=== PATIENT | male | born 1940 | race Caucasian/White ===

== ENCOUNTER 2019-05-15 09:13 | Inpatient (IN) | payer MEDICARE ==
--- NOTE | 2019-05-15 09:24 | ED Physician Documentation ---
PD HPI DYSPNEA - Stated complaint Stated Complaint: SOA - History obtained from History obtained from: Patient, EMS - History of Present Illness Timing - onset: How many days ago (4 to 5 days of general malaise cough and increasing trouble breathing. This has worsened significantly since yesterday despite home oxygen and nebulizers.) Timing - onset during: Light activity Timing - duration: Days Timing - details: Gradual onset, Still present (much worse breathing and cough the past day in particular.) Inciting event(s): URI (cough, congestion and wheezing the past several days, worsening.) Improved by: No: O2 (He has oxygen and a nebulizer to use when he has problems. He states he does not use them consistently when well.), Inhaler/neb Associated symptoms: Fever, Cough, Wheezing. No: Hemoptysis, Chest pain / discomfort, Bilateral edema Similar symptoms before: Diagnosis (COPD) Recently seen: Not recently seen Review of Systems Constitutional: reports: Fever, Chills, Myalgias Nose: reports: Congestion. denies: Rhinorrhea / runny nose Throat: denies: Sore throat Cardiac: denies: Chest pain / pressure, Palpitations, Pedal edema Respiratory: reports: Dyspnea, Cough, Wheezing GI: reports: Nausea. denies: Abdominal Pain, Vomiting, Diarrhea Skin: denies: Rash Neurologic: reports: Generalized weakness. denies: Near syncope, Altered mental status, Headache PD PAST MEDICAL HISTORY - Past Medical History Cardiovascular: None Respiratory: Asthma, COPD, Shortness of breath Neuro: Headaches Endocrine/Autoimmune: None GI: None : Other HEENT: None Psych: None Musculoskeletal: Osteoarthritis, Chronic back pain Derm: Psoriasis - Past Surgical History Past Surgical History: Yes General: Colonoscopy Ortho: Arthroscopic surgery, Spine surgery - Present Medications Home Medications: Ambulatory Orders Medication Instructions Recorded Confirmed Albuterol 2.5 mg INH Q4HR PRN MDD 6 doses 11/08/17 05/15/19 Gabapentin 300 mg PO TID 11/08/17 05/15/19 Hydrocodone/Acetaminophen 1 tab PO Q4HR PRN MDD 4000mg 11/08/17 05/15/19 [Hydrocodone-Acetamin 10-325 mg] aceteminophen Montelukast [Singulair] 10 mg PO DAILY 11/08/17 05/15/19 Fluticasone Propion/Salmeterol 1 puffs INH BID 05/15/19 05/15/19 [Wixela 500-50 Inhub] Mometasone Furoate [Asmanex Hfa] 1 puffs INH BID 05/15/19 05/15/19 predniSONE [Prednisone] 10 mg PO DAILYWM 05/15/19 05/15/19 - Allergies Allergies/Adverse Reactions: Allergies Allergy/AdvReac Type Severity Reaction Status Date / Time Penicillins Allergy Unknown Verified 05/15/19 09:34 - Social History Does the pt smoke?: Yes Smoking Status: Current every day smoker Does the pt drink ETOH?: No Does the pt have substance abuse?: No - Immunizations Immunizations are current?: Yes PD ED PE NORMAL - Vitals Vital signs reviewed: Yes - General General: Alert and oriented X 3, Well developed/nourished, Other (He has tachypnea with some accessory muscle use and partial sentence conversational dyspnea. He is most comfortable sitting up.) - HEENT HEENT: Pharynx benign - Neck Neck: Supple, no meningeal sign, No adenopathy - Cardiac Cardiac: No murmur. No: RRR (Regular but tachycardic.) - Respiratory Respiratory: No: Clear bilaterally (Tachycardic.) - Abdomen Abdomen: Soft, Non tender - Male Male : Deferred - Rectal Rectal: Deferred - Back Back: No CVA TTP - Derm Derm: No: Normal color, Warm and dry (pale but warm) - Extremities Extremities: No deformity, Normal ROM s pain, No edema - Neuro Neuro: Alert and oriented X 3, No motor deficit, Normal speech Results - Vitals Vitals: Vital Signs - 24 hr 05/15/19 05/15/19 05/15/19 09:20 09:45 10:00 Temperature 36.9 C Heart Rate 136 H 135 H 132 H Respiratory 25 H 24 24 Rate Blood Pressure 183/95 H 155/91 H 141/86 H O2 Saturation 77 L 97 96 05/15/19 05/15/19 05/15/19 10:10 10:28 10:30 Temperature 36.9 C Heart Rate 132 H 128 H 129 H Respiratory 22 24 29 H Rate Blood Pressure 149/81 H O2 Saturation 92 05/15/19 05/15/19 05/15/19 11:00 11:05 11:30 Temperature Heart Rate 127 H 129 H 126 H Respiratory 25 H 24 22 Rate Blood Pressure 152/80 H 127/77 O2 Saturation 94 95 Oxygen O2 Source Oxymask Oxygen Flow Rate 8 - EKG (time done) 09:25 Rate: Rate (enter#) (137) Rhythm: NSR, Other (artifact in baseline) Intervals: Normal DE, Wide QRS Ischemia: Normal ST segments. No: ST elevation c/w ischemia, ST depression - Labs Labs: Laboratory Tests 05/15/19 05/15/19 05/15/19 10:12 10:12 10:12 WBC RBC Hgb Hct MCV MCH MCHC RDW Plt Count MPV Neut # (Auto) Lymph # (Auto) [place] # (Auto) Eos # (Auto) Baso # (Auto) Absolute Nucleated RBC Nucleated RBC % Bld Gas Analysis Time Sample Site ABG pH ABG pCO2 ABG pO2 ABG HCO3 ABG Total CO2 ABG O2 Saturation ABG Oximetry Spot Check ABG Base Excess Jw Test Respiration Rate O2 Delivery Device O2 Liters/Min Sodium 137 Potassium 4.4 Chloride 99 L Carbon Dioxide 25 Anion Gap 13.0 BUN 31 H Creatinine 1.1 Estimated GFR (MDRD) 65 L Glucose 168 H Lactic Acid 1.3 Calcium 9.2 Magnesium 2.3 Total Bilirubin 1.2 H AST 29 ALT 32 Alkaline Phosphatase 95 Troponin I High Sens 167.1 H* B-Natriuretic Peptide Total Protein 8.1 Albumin 3.6 Globulin 4.5 H Albumin/Globulin Ratio 0.8 L Lipase 27 05/15/19 05/15/19 05/15/19 10:51 10:51 11:00 WBC 13.4 H RBC 4.20 L Hgb 12.9 L Hct 40.9 L MCV 97.4 H MCH 30.7 MCHC 31.5 L RDW 14.0 Plt Count 329 MPV 9.5 Neut # (Auto) 11.0 H Lymph # (Auto) 1.6 [place] # (Auto) 0.6 Eos # (Auto) 0.0 Baso # (Auto) 0.1 Absolute Nucleated RBC 0.00 Nucleated RBC % 0.0 Bld Gas Analysis Time 1107 Sample Site LEFT RADIAL ABG pH 7.25 L ABG pCO2 58 H ABG pO2 68 L ABG HCO3 25.1 ABG Total CO2 26.9 ABG O2 Saturation 93 L ABG Oximetry Spot Check 93 ABG Base Excess -3.0 L Jw Test POSITIVE Respiration Rate 23 O2 Delivery Device OXYMASK O2 Liters/Min 6.00 Sodium Potassium Chloride Carbon Dioxide Anion Gap BUN Creatinine Estimated GFR (MDRD) Glucose Lactic Acid Calcium Magnesium Total Bilirubin AST ALT Alkaline Phosphatase Troponin I High Sens B-Natriuretic Peptide 233 H Total Protein Albumin Globulin Albumin/Globulin Ratio Lipase - Rads (name of study) chest xray Radiology: Prelim report reviewed (no infiltrates. increased right lower lung markings. ), See rad report PD MEDICAL DECISION MAKING - ED course Complexity details: re-evaluated patient (He is more relaxed and having lessened work of breathing after several nebulizer treatments. A blood gas had shown some elevated PCO2 with some acidosis. Think some of this may be metabolic as well. However his breathing did improve any did not appear to be hypoventilating and was talking in good sentences so I did not feel that he needed BiPAP or other supported breathing. We maintained oxygenation supplement in order to have adequate oxygenation above 94%.) Departure - Departure Disposition: 66 [facility] DC/Xfer Clinical Impression: Bronchitis, Hypoxemia, Acute exacerbation of COPD with asthma Upper respiratory tract infection Qualifiers: URI type: unspecified URI Qualified Code(s): J06.9 - Acute upper respiratory infection, unspecified Condition: Stable Record reviewed to determine appropriate education?: Yes Discharge Date/Time: 05/15/19 13:00
[2019-05-15] MEDS ORDERED: IPRATROPIUM/ALBUTEROL 3 ML NEB INH STA (09:38)
[2019-05-15] MEDS ORDERED: DEXAMETHASONE 10 MG/ML VIAL IVP STA (09:39)
[2019-05-15] MEDS ORDERED: SODIUM CHLORIDE 0.9% 1,000 ML IV ONE (09:39)
--- NOTE | 2019-05-15 10:13 | XRAY Report ---
Reason: dyspnea and cough Procedure Date: 05/15/2019 Accession Number: [id number] / [id number] Procedure: XR - Chest 1 View X-Ray CPT Code: 47501 Final Report FULL RESULT: EXAM: CHEST RADIOGRAPHY EXAM DATE: 05/15/2019 10:04 AM. CLINICAL HISTORY: Dyspnea and cough. COMPARISON: ABDOMEN/PELVIS W/O 03/10/2015 8:28 PM. TECHNIQUE: 1 view. FINDINGS: Lungs/Pleura: No confluent focal opacities evident. Increased interstitial markings and airway thickening right lung may reflect chronic change or be related to bronchitis/viral process, or reactive airways disease. No pleural effusion. No pneumothorax. Mediastinum: Within exam limitations, the cardiomediastinal contour is normal. Other: Small metallic plate projected over the upper mediastinum. IMPRESSION: No confluent pneumonia. Increased right lung markings could reflect bronchitis/viral process/reactive airways disease. RADIA
[2019-05-15] MEDS ORDERED: ALBUTEROL NEB 2.5 MG/3 ML INH STA ×2 (10:22→10:56)
[2019-05-15] MEDS ORDERED: cefTRIAXone 1 GM VIAL IVP STA (10:22)
[2019-05-15] MEDS ORDERED: AZITHROMYCIN INJ 500 MG in SODIUM CHLORIDE 0.9% 250 ML IV STA (10:22)
[2019-05-15 10:42] LABS: ALBUMIN 3.6 g/dL (3.2-5.5); ALBUMIN/GLOBULIN RATIO 0.8 (1.0-2.2); BILIRUBIN,TOTAL 1.2 mg/dL (0.2-1.0); CALCIUM 9.2 mg/dL (8.5-10.3); CREATININE 1.1 mg/dL (0.6-1.2); MAGNESIUM 2.3 mg/dL (1.7-2.8); TOTAL PROTEIN 8.1 g/dL (6.7-8.2)
[2019-05-15] MEDS ORDERED: HYDROmorphone 1 MG/ML CARPUJECT IVP STA (10:49)
[2019-05-15 11:06] LABS: BASOPHILS # (AUTO) 0.1 10^3/uL (0.0-0.1); BASOPHILS % (AUTO) 0.4 %; EOSINOPHILS % (AUTO) 0.1 %; HGB - HEMOGLOBIN 12.9 g/dL (14.0-18.0); LYMPHOCYTES # (AUTO) 1.6 10^3/uL (1.5-3.5); LYMPHOCYTES % (AUTO) 11.8 %; MEAN CORPUSCULAR HEMOGLOBIN 30.7 pg (27.0-31.0); MEAN CORPUSCULAR HGB CONC 31.5 g/dL (32.0-36.0); MEAN CORPUSCULAR VOLUME 97.4 fL (80.0-94.0); MEAN PLATELET VOLUME 9.5 fL (7.4-11.4); MONOCYTES # (AUTO) 0.6 10^3/uL (0.0-1.0); MONOCYTES % (AUTO) 4.6 %; NEUTROPHILS % (AUTO) 82.3 %; PLT - PLATELET COUNT 329 10^3/uL (130-450); WHITE BLOOD COUNT 13.4 x10^3/uL (4.8-10.8)
[2019-05-15 11:23] LABS: ABG HCO3 25.1 mmol/L (22.0-26.0); ABG OXYGEN SATURATION 93 % (94-98); ABG PCO2 58 mmHg (34-45); ABG PH 7.25 (7.35-7.45); ABG PO2 68 mmHg (80-100); ABG TCO2 26.9 MMOL/L (21.0-29.0); ALLEN TEST POSITIVE
[2019-05-15] MEDS ORDERED: PROCHLORPERAZINE 10 MG/2 ML VIAL IVP PRN (11:54)
[2019-05-15] MEDS ORDERED: IPRATROPIUM/ALBUTEROL 3 ML NEB INH PRN (11:57)
[2019-05-15] MEDS: methylPREDNISolone SUCCINATE 125 MG/2 ML VIAL IVP SCH ×2 (13:45→22:53)
[2019-05-15] MEDS: SODIUM CHLORIDE FLUSH 0.9% 10 ML SYRINGE IVP SCH ×3 (13:46→22:53)
[2019-05-15] MEDS: NICOTINE 14 MG PATCH TOP SCH (13:53)
[2019-05-15] MEDS: IPRATROPIUM/ALBUTEROL 3 ML NEB INH SCH ×2 (15:16→21:22)
[2019-05-15 16:20] LABS: VBG PCO2 59.5 mmHg (41-51); VBG PH 7.201 (7.31-7.41); VBG PO2 168.5 mmHg (25-47); VBG TOTAL CO2 24.6 mmol/L (24-29)
--- NOTE | 2019-05-15 16:25 | PHARMACY PROGRESS NOTE ---
- Best Possible Medication History Admit Date and Time: 05/15/19 1149 Processed by: Pharmacy Medication History completed: Yes Patient Interview: Completed Secondary Source(s): Physician records, Pharmacy records, Insurance records As the person ultimately responsible for medication therapy, providers are able to order a medication from an existing home medication list in [facility] via the "Reconcile Routine" prior to Confirmation of that medication by child support officer. Such practice is discouraged except when the physician, in their clinical judgment, deems that a medical need exists for a medication without regard to previous use.
--- NOTE | 2019-05-15 18:25 | HISTORY & PHYSICAL EXAMINATION ---
DATE OF SERVICE: 05/15/2019 Physician: Lesly Garcia MD HISTORY OF PRESENT ILLNESS: This is a 78-year-old white male with a history of COPD, on home oxygen and he continues to smoke. The patient has never been admitted here for a COPD exacerbation. He also has a history of psoriasis, headaches, osteoarthritis, and chronic back pain, on 2 pain medications. The patient presents with a 4-5 day history of increasing cough, yellow-white phlegm, and worsening shortness of breath for which he started to use more frequent inhalations that did not help and today presented to the emergency room. He was very tight, started to get nebulizer treatments there. Apparently, he was sent from his doctor's office where there were documented saturations in the 70% range on room air. In the ER, he had a chest x-ray showing right lower lobe "haziness." A blood gas was done that showed a pH of 7.25 and pCO2 of 53, consistent with respiratory acidosis. The patient is being admitted for COPD exacerbation with bronchitis and respiratory acidosis. PAST MEDICAL HISTORY: COPD in home O2 at 2L/min, DJD and chronic pain, chronic Law. SOCIAL HISTORY: The patient smokes daily, 1-2 packs, no alcohol abuse history, no substance abuse history. He lives alone, there is a son in the nearby area. He is a of 1-1/2 years, he states that he and his were heavy smokers and that she "smoked herself to and now he is smoking himself to ." FAMILY HISTORY: Noncontributory. MEDICATIONS 1. Albuterol nebulizer. 2. Gabapentin, unknown dose t.i.d. 3. Tylenol with codeine 10/325 mg every 4 hours p.r.n. pain. 4. Singulair 1 tablet daily. 5. Asmanex inhaler b.i.d. 6. Prednisone 10 mg orally daily, which he decreased to 5 mg daily on his own 1 month ago. ALLERGIES: PENICILLIN, WHICH CAUSED UNKNOWN REACTION. REVIEW OF SYSTEMS: A comprehensive review of systems was performed and the pertinent positives are listed, the rest are negative. Discussions regarding code status included that he wants to allow a natural , but would be okay with BiPAP. PHYSICAL EXAMINATION: GENERAL: Elderly white male, who is in [id number] respiratory distress, upright in bed. VITAL SIGNS: Blood pressure 140/70, heart rate 100-120 in sinus tachycardia, afebrile. He is on 6 liters Ventimask with a saturation of 93-95%. HEENT: Reveals suntanned, very leathery and wrinkled skin, consistent with his heavy smoking history. NECK: Positive JVD in a 30-degree upright angle. CHEST: Increased AP diameter, diffuse scattered wheezes and poor air movement. HEART: Tachycardic. Distant heart sounds. No audible murmur. ABDOMEN: Soft, nontender. EXTREMITIES: No clubbing, cyanosis, edema. A Law is in place, which is chronic. NEUROLOGIC: Grossly intact. LABORATORY DATA: ABG had pH 7.25, pCO2 of 58, pO2 68. White blood count 13.4 with a left shift. Hemoglobin 12.9 with MCV 97. Platelet count normal at 329. No INR was done. Chemistry shows normal electrolytes except chloride 99, BUN 31, creatinine 1.1. Lactic acid 1.3. Troponin 167. Normal lipase and liver tests. CHEST X-RAY: Right lower lobe haziness. EKG: Sinus tachycardia, right bundle branch block. IMPRESSION/DIAGNOSES 1. Chronic obstructive pulmonary disease with exacerbation. 2. Respiratory acidosis. 3. Acute bronchitis with elevated white count. 4. Right bundle branch block, this is consistent with his probable longstanding COPD and possible cor pulmonale. 5. Elevated troponin. 6. Chronic pain history. PLAN 1. Admit the patient on telemetry. 2. Begin COPD treatment for exacerbation using nebulizers for bronchospasm and nebulized steroids. 3. Continue with supplemental oxygen, recheck his pH by venous blood gas. BIPAP if needed. 4. Begin empiric Mucinex, continue Singulair, begin Zithromax and ceftriaxone plus probiotics. 5. Obtain an Echo to evaluate the right bundle branch block and the elevated troponins. 6. Repeat troponins cycling x2 more. 7. Continue his medications for chronic pain. CODE STATUS: DNR. DEEP VENOUS THROMBOSIS PROPHYLAXIS: SCDs. ATTESTATION: The patient is expected to be discharged or transferred to another facility within 96 hours: Yes TD: 05/15/2019 17:10 [facility]
[2019-05-15] MEDS: SACCHAROMYCES BOULARDII 250 MG CAPSULE PO SCH (18:41)
[2019-05-15 19:45] LABS: ABG BASE EXCESS -1.4 mmol/L (-2.0-3.0); ABG HCO3 25.1 mmol/L (22.0-26.0); ABG OXYGEN SATURATION 97 % (94-98); ABG PCO2 49 mmHg (34-45); ABG PH 7.32 (7.35-7.45); ABG PO2 QNS mmHg (80-100); ABG TCO2 26.6 MMOL/L (21.0-29.0)
[2019-05-15 19:46] LABS: ALLEN TEST POSITIVE
[2019-05-15] MEDS: HYDROcod/ACETAM 5/325 MG TABLET PO PRN (19:46)
[2019-05-15] MEDS: FAMOTIDINE 20 MG TABLET PO SCH (21:22)
[2019-05-15] MEDS: guaiFENesin 600 MG TABLET PO SCH (21:22)
[2019-05-15] MEDS: BUDESONIDE 0.5 MG/2 ML NEB INH SCH (21:22)
[2019-05-15] MEDS: MONTELUKAST 10 MG TABLET PO SCH (21:22)
[2019-05-16 01:05] LABS: ABG PCO2 41 mmHg (34-45); ABG PH 7.33 (7.35-7.45)
[2019-05-16 01:06] LABS: ABG BASE EXCESS -4.4 mmol/L (-2.0-3.0); ABG HCO3 21.2 mmol/L (22.0-26.0); ABG OXYGEN SATURATION 97 % (94-98); ABG PO2 88 mmHg (80-100); ABG TCO2 22.4 MMOL/L (21.0-29.0); ALLEN TEST POSITIVE
[2019-05-16] MEDS: FORMOTEROL FUMARATE NEB 20 MCG/2 ML INH SCH ×3 (04:11→19:52)
[2019-05-16 04:53] LABS: ABG HCO3 22.3 mmol/L (22.0-26.0); ABG PCO2 41 mmHg (34-45); ABG PH 7.36 (7.35-7.45); ABG TCO2 23.6 MMOL/L (21.0-29.0)
[2019-05-16 04:54] LABS: ALLEN TEST POSITIVE
[2019-05-16 05:02] LABS: ABG OXYGEN SATURATION 85 % (94-98); ABG PO2 48 mmHg (80-100)
[2019-05-16 05:08] LABS: BASOPHILS % (AUTO) 0.1 %; HGB - HEMOGLOBIN 11.7 g/dL (14.0-18.0); MEAN CORPUSCULAR HEMOGLOBIN 30.3 pg (27.0-31.0); MEAN CORPUSCULAR VOLUME 97.9 fL (80.0-94.0); MEAN PLATELET VOLUME 9.5 fL (7.4-11.4); NEUTROPHILS % (AUTO) 89.1 %; PLT - PLATELET COUNT 320 10^3/uL (130-450); RED BLOOD COUNT 3.86 10^6/uL (4.70-6.10); RED CELL DISTRIBUTION WIDTH 13.9 % (12.0-15.0); WHITE BLOOD COUNT 8.8 x10^3/uL (4.8-10.8)
[2019-05-16 05:13] LABS: ABNORMAL LYMPHS % (MANUAL) 0 %
[2019-05-16 05:15] LABS: CALCIUM 9.3 mg/dL (8.5-10.3)
[2019-05-16 06:29] LABS: BAND NEUTROPHILS % (MANUAL) 9 %; DIFFERENTIAL COMMENT MANUAL DIFFERENTIAL; LYMPHOCYTES # (MANUAL) 0.7 10^3/uL (1.5-3.5); LYMPHOCYTES % (MANUAL) 8 %; MONOCYTES # (MANUAL) 0.2 10^3/uL (0.0-1.0); PLATELET ESTIMATE, MANUAL NORMAL (130-450,000) (NORMAL); RBC MORPHOLOGY (MULTIPLE) NORMAL APPEARANCE (NORMAL)
[2019-05-16] MEDS: IPRATROPIUM/ALBUTEROL 3 ML NEB INH SCH ×4 (07:12→19:52)
[2019-05-16] MEDS: BUDESONIDE 0.5 MG/2 ML NEB INH SCH ×2 (07:12→19:52)
[2019-05-16] MEDS: methylPREDNISolone SUCCINATE 125 MG/2 ML VIAL IVP SCH ×3 (07:19→21:06)
[2019-05-16] MEDS: SODIUM CHLORIDE FLUSH 0.9% 10 ML SYRINGE IVP PRN ×2 (07:20→21:07)
[2019-05-16] MEDS: HYDROcod/ACETAM 5/325 MG TABLET PO PRN ×4 (08:03→19:45)
[2019-05-16] MEDS: SACCHAROMYCES BOULARDII 250 MG CAPSULE PO SCH ×2 (08:29→16:53)
[2019-05-16] MEDS: AZITHROMYCIN 250 MG TABLET PO SCH (08:31)
[2019-05-16] MEDS: guaiFENesin 600 MG TABLET PO SCH ×2 (08:31→19:47)
[2019-05-16] MEDS: FAMOTIDINE 20 MG TABLET PO SCH ×2 (08:31→19:47)
[2019-05-16] MEDS: NICOTINE 14 MG PATCH TOP SCH (08:43)
[2019-05-16] MEDS: cefTRIAXone 2 GM in SODIUM CHLORIDE 0.9% MINIBAG 100 ML IV SCH (09:25)
[2019-05-16] MEDS: SODIUM CHLORIDE FLUSH 0.9% 10 ML SYRINGE IVP SCH ×3 (09:27→19:47)
--- NOTE | 2019-05-16 10:32 | PROVIDER PROGRESS NOTE ---
Assessment/Plan - Problem List (1) COPD with exacerbation Assessment/Plan: He needed BIPAP and was transferred into ICU last evening. He is on IV steroids, empiric antibiotics, bronchodilator nebulizers and steroid nebulizers. Will begin PT (2) Respiratory acidosis Assessment/Plan: He needed BIPAP and was transferred into ICU last evening. The pH has improved from 7.2 yesterday x2, to 7.4 this a.m. Remain in ICU today, for BIPAP and wean that down as tolerated. (3) Acute bronchitis Assessment/Plan: Await culture of (a good) sputum sample. Continue empiric p.o. Zithromax and IV ceftriaxone (4) Cor pulmonale Assessment/Plan: The Echo, done yesterday, showed moderate RV enlargement. Also moderate pulm HTN was found with PA pressure 54 mmHg. He has no signs of R heart overload: no leg edema or ascites or elevated LFTs. (5) Tobacco abuse Assessment/Plan: Nicotine patch ordered, but he is refusing it. He told his RN yesterday he has no intention of quitting smoking. Today he described that he had decreased from 1 and 1/2 PPD to 1/4-1/2 PPD currently and is ready to quit, since his son "will be throwing all his cigarettes out". - Current Meds Current Meds: Current Medications Generic Name Dose Route Start Last Admin Trade Name Freq PRN Reason Stop Dose Admin Hydrocodone Bitart/Acetaminophen 1 tab 05/15/19 11:54 05/16/19 08:03 [place] 5/325 PO 1 tab Q4HR PRN Administration Pain 5 to 7 Albuterol/Ipratropium 3 ml 05/15/19 15:00 05/16/19 07:12 Duoneb INH 3 ml RTQID REBECCA Administration Azithromycin 250 mg 05/16/19 09:00 05/16/19 08:31 Zithromax PO 05/19/19 09:01 250 mg DAILY REBECCA Administration Budesonide 0.5 mg 05/15/19 19:00 05/16/19 07:12 Pulmicort INH 0.5 mg RTBID REBECCA Administration Famotidine 20 mg 05/15/19 21:00 05/16/19 08:31 Pepcid PO 20 mg BID REBECCA Administration Formoterol Fumarate 20 mcg 05/15/19 19:00 05/16/19 07:12 Perforomist INH 20 mcg RTBID REBECCA Administration Guaifenesin 600 mg 05/15/19 21:00 05/16/19 08:31 Mucinex PO 600 mg BID REBECCA Administration Ceftriaxone Sodium 2 gm/ 100 mls @ 200 mls/hr 05/16/19 09:00 05/16/19 09:55 Sodium Chloride IV Infused DAILY REBECCA Infusion Methylprednisolone Sodium Succinate 80 mg 05/15/19 14:00 05/16/19 07:19 Solu-Medrol (125mg Vial) IVP 80 mg TID REBECCA Administration Montelukast Sodium 10 mg 05/15/19 21:00 05/15/19 21:22 Singulair PO 10 mg QPM REBECCA Administration Nicotine 1 patch 05/15/19 14:00 05/16/19 08:43 Nicoderm TOP Not Given DAILY REBECCA Saccharomyces Boulardii 250 mg 05/15/19 17:00 05/16/19 08:29 Florastor PO 250 mg BIDWM REBECCA Administration Sodium Chloride 10 ml 05/15/19 11:54 05/16/19 07:20 Normal Saline Flush 0.9% IVP 10 ml PRN PRN Administration NEEDED PER PROVIDER ORDERS Sodium Chloride 10 ml 05/15/19 17:00 05/16/19 09:27 Normal Saline Flush 0.9% IVP 10 ml 0100,0900,1700 REBECCA Administration - Lab Result Fish Bone Diagrams: 05/16/19 04:30 05/16/19 04:30 - Additional Planning My Orders: My Active Orders 05/15/19 11:54 Activity Orders [RC] Q2HR IO [RC] IOSHIFT Initiate Bowel Care Protocol [RC] .protocol Initiate Bronchodialator Mirian [RC] .PROTOCOL Initiate Line Care Protocol [RC] QSHIFT Initiate Personal Care Protoco [RC] .protocol Initiate Secretion Clearance P [RC] .PROTOCOL Oxygen Therapy [RC] Routine Telemetry- [RC] Q4HR Vital Signs [RC] Q1HR HYDROcod/ACETAM 5/325 [[place] 5/325] 1 tab PO Q4HR PRN Prochlorperazine Inj [Compazine Inj] 10 mg IVP Q6HR PRN Sodium Chloride Flush 0.9% [Normal Saline Flush 0.9%] 10 ml IVP PRN PRN Code Status [OTHERS] Routine Condition of Patient [OTHERS] Routine DVT Prophylaxis [OTHERS] Routine 05/15/19 11:55 Daily Weight [RC] 0600 05/15/19 11:56 SCDs [RC] QSHIFT 05/15/19 11:57 Ipratropium/Albuterol [Duoneb] 3 ml INH Q4HR PRN 05/15/19 12:02 Echo Transthoracic Complete [ECHO] Routine 05/15/19 14:00 Nicotine 14 mg Patch [Nicoderm] 1 patch TOP DAILY methylPREDNISolone SUCCINATE [SOLU-Medrol (125MG VIAL)] 80 mg IVP TID 05/15/19 14:59 RT [Nebulizer/MDI Tx.] [RC] .BID/ QID/ Q4 PRN 05/15/19 15:00 Ipratropium/Albuterol [Duoneb] 3 ml INH RTQID 05/15/19 16:50 Acapella (Flutter Valve Device [RC] .TID 05/15/19 16:51 Resp Teach Nebulizer/MDI [RC] .ONCE 05/15/19 16:59 BIPAP [BIPAP/CPAP - RT] [RC] .Q2 05/15/19 17:00 Saccharomyces Boulardii [Florastor] 250 mg PO BIDWM Sodium Chloride Flush 0.9% [Normal Saline Flush 0.9%] 10 ml IVP 0100,0900,1700 05/15/19 17:45 CUL, RESPIRATORY [RM] Urgent 05/15/19 19:00 Budesonide [Pulmicort] 0.5 mg INH RTBID Formoterol Fumarate [Perforomist] 20 mcg INH RTBID 05/15/19 21:00 Famotidine [Pepcid] 20 mg PO BID Montelukast [Singulair] 10 mg PO QPM guaiFENesin [Mucinex] 600 mg PO BID 05/15/19 Lunch Regular Diet [DIET] 05/16/19 09:00 Azithromycin [Zithromax] 250 mg PO DAILY cefTRIAXone [Rocephin] 2 gm Sodium Chloride 0.9% Minibag [Normal Saline 0.9% Minibag] 100 ml IV DAILY 05/17/19 05:00 BMP - BASIC METABOLIC PANEL [CHEM] DAILYLAB CBC - COMP BLD CT W/AUTO DIFF [HEME] DAILYLAB 05/18/19 05:00 BMP - BASIC METABOLIC PANEL [CHEM] DAILYLAB CBC - COMP BLD CT W/AUTO DIFF [HEME] DAILYLAB Subjective - Subjective Patient Reports: Feeling Better, Resting Comfortably, Cough, Shortness of Breath Objective Vital Signs: Vital Signs - 24 hr 05/15/19 05/15/19 05/15/19 11:00 11:05 11:30 Temperature Heart Rate 127 H 129 H 126 H Heart Rate [ Monitoring electrodes] Respiratory 25 H 24 22 Rate Blood Pressure 152/80 H 127/77 Blood Pressure [Left Brachial artery] Blood Pressure [Right Brachial artery] O2 Saturation 94 95 05/15/19 05/15/19 05/15/19 12:00 12:30 13:10 Temperature 36.8 C Heart Rate 131 H 123 H Heart Rate [ 126 H Monitoring electrodes] Respiratory 22 23 20 Rate Blood Pressure 136/79 H 150/84 H Blood Pressure 139/72 H [Left Brachial artery] Blood Pressure [Right Brachial artery] O2 Saturation 93 94 92 05/15/19 05/15/19 05/15/19 15:16 15:51 16:57 Temperature 36.8 C 37.0 C Heart Rate 112 H Heart Rate [ 116 H 118 H Monitoring electrodes] Respiratory 24 24 20 Rate Blood Pressure Blood Pressure [Left Brachial artery] Blood Pressure 141/74 H 146/59 H [Right Brachial artery] O2 Saturation 94 95 05/15/19 05/15/19 05/15/19 18:00 18:23 18:28 Temperature Heart Rate 114 H Heart Rate [ 114 H 107 H Monitoring electrodes] Respiratory 24 22 Rate Blood Pressure Blood Pressure 143/77 H 142/81 H [Left Brachial artery] Blood Pressure [Right Brachial artery] O2 Saturation 97 93 05/15/19 05/15/19 05/15/19 19:00 20:00 21:00 Temperature 37.3 C Heart Rate Heart Rate [ 116 H 111 H 103 H Monitoring electrodes] Respiratory 27 H 20 18 Rate Blood Pressure Blood Pressure 137/73 H 143/81 H 135/77 H [Left Brachial artery] Blood Pressure [Right Brachial artery] O2 Saturation 93 97 92 05/15/19 05/15/19 05/16/19 22:00 23:00 00:00 Temperature Heart Rate Heart Rate [ 104 H 98 92 Monitoring electrodes] Respiratory 22 20 19 Rate Blood Pressure Blood Pressure 130/67 129/67 149/75 H [Left Brachial artery] Blood Pressure [Right Brachial artery] O2 Saturation 97 94 96 05/16/19 05/16/19 05/16/19 01:00 01:58 03:00 Temperature 37.1 C Heart Rate Heart Rate [ 94 81 81 Monitoring electrodes] Respiratory 13 21 18 Rate Blood Pressure Blood Pressure 148/81 H 120/68 144/78 H [Left Brachial artery] Blood Pressure [Right Brachial artery] O2 Saturation 98 96 96 05/16/19 05/16/19 05/16/19 04:00 05:00 06:00 Temperature Heart Rate Heart Rate [ 82 78 73 Monitoring electrodes] Respiratory 22 20 20 Rate Blood Pressure Blood Pressure 125/81 H 144/72 H 115/77 [Left Brachial artery] Blood Pressure [Right Brachial artery] O2 Saturation 97 95 96 05/16/19 05/16/19 05/16/19 06:56 08:00 09:00 Temperature 36.6 C Heart Rate 108 H Heart Rate [ 75 110 H 109 H Monitoring electrodes] Respiratory 20 20 21 Rate Blood Pressure Blood Pressure 137/79 H 141/72 H 132/78 H [Left Brachial artery] Blood Pressure [Right Brachial artery] O2 Saturation 97 96 92 Oxygen O2 Source Nasal cannula Oxygen Flow Rate 8 I&O (Last 24 Hrs): Intake and Output Totals x24h 05/14/19 05/15/19 05/16/19 23:59 23:59 23:59 Intake Total 1580 500 Output Total 350 250 Balance 1230 250 General: Alert, Oriented x3 HEENT: Mucous membr. moist/pink, Other ([place] has been shaved off (to wear BIPAP)) Neck: Supple, No JVD Neuro: Alert, Non Focal Cardiovascular: Regular rate, No murmurs Respiratory: Wheezes, Other (Prolonged exp phase) Abdomen: Soft Extremities: No edema Skin: No significant lesion (Leathery, wrinkled) - Results Results: Laboratory Results WBC 8.8 x10^3/uL (4.8-10.8) 05/16/19 04:30 RBC 3.86 10^6/uL (4.70-6.10) L 05/16/19 04:30 Hgb 11.7 g/dL (14.0-18.0) L 05/16/19 04:30 Hct 37.8 % (42.0-52.0) L 05/16/19 04:30 MCV 97.9 fL (80.0-94.0) H 05/16/19 04:30 MCH 30.3 pg (27.0-31.0) 05/16/19 04:30 MCHC 31.0 g/dL (32.0-36.0) L 05/16/19 04:30 RDW 13.9 % (12.0-15.0) 05/16/19 04:30 Plt Count 320 10^3/uL (130-450) 05/16/19 04:30 MPV 9.5 fL (7.4-11.4) 05/16/19 04:30 Neut # (Auto) Not Reportable 05/16/19 04:30 Lymph # (Auto) Not Reportable 05/16/19 04:30 [place] # (Auto) Not Reportable 05/16/19 04:30 Eos # (Auto) Not Reportable 05/16/19 04:30 Baso # (Auto) Not Reportable 05/16/19 04:30 Absolute Nucleated RBC Not Reportable 05/16/19 04:30 Total Counted 100 05/16/19 04:30 Band Neuts % (Manual) 9 % (0-10) 05/16/19 04:30 Abnorm Lymph % (Manual) 0 % 05/16/19 04:30 Nucleated RBC % Not Reportable 05/16/19 04:30 Neutrophils # (Manual) 7.9 10^3/uL (1.5-6.6) H 05/16/19 04:30 Lymphocytes # (Manual) 0.7 10^3/uL (1.5-3.5) L 05/16/19 04:30 Monocytes # (Manual) 0.2 10^3/uL (0.0-1.0) 05/16/19 04:30 Eosinophils # (Manual) 0.0 10^3/uL (0-0.7) 05/16/19 04:30 Basophils # (Manual) 0.0 10^3/uL (0-0.1) 05/16/19 04:30 Differential Comment MANUAL DIFFERENTIAL 05/16/19 04:30 Platelet Estimate NORMAL (130-450,000) (NORMAL) 05/16/19 04:30 RBC Morph Micro Appear NORMAL APPEARANCE (NORMAL) 05/16/19 04:30 Bld Gas Analysis Time 0446 05/16/19 04:40 Sample Site RIGHT RADIAL 05/16/19 04:40 ABG pH 7.36 (7.35-7.45) 05/16/19 04:40 ABG pCO2 41 mmHg (34-45) 05/16/19 04:40 ABG pO2 48 mmHg (80-100) L* 05/16/19 04:40 ABG HCO3 22.3 mmol/L (22.0-26.0) 05/16/19 04:40 ABG Total CO2 23.6 MMOL/L (21.0-29.0) 05/16/19 04:40 ABG O2 Saturation 85 % (94-98) L* 05/16/19 04:40 ABG Oximetry Spot Check 93 % 05/15/19 11:00 ABG Base Excess -3.0 mmol/L (-2.0-3.0) L 05/16/19 04:40 Jw Test POSITIVE 05/16/19 04:40 VBG pH 7.201 (7.31-7.41) L 05/15/19 15:54 VBG pCO2 59.5 mmHg (41-51) H 05/15/19 15:54 VBG pO2 168.5 mmHg (25-47) H 05/15/19 15:54 VBG HCO3 22.8 mmol/L (23-28) L 05/15/19 15:54 VBG Total CO2 24.6 mmol/L (24-29) 05/15/19 15:54 VBG O2 Saturation 98.8 % (60-80) H 05/15/19 15:54 VBG Base Excess -6.0 mmol/L (-2 - +2) L 05/15/19 15:54 Respiration Rate 12 b/min 05/16/19 04:40 O2 Delivery Device BiPAP 05/16/19 04:40 O2 Liters/Min 6.00 LPM 05/15/19 11:00 FiO2 30.00 05/16/19 04:40 EPAP 5 cmH2O 05/16/19 04:40 IPAP 12 cmH2O 05/16/19 04:40 Sodium 141 mmol/L (135-145) 05/16/19 04:30 Potassium 4.8 mmol/L (3.5-5.0) 05/16/19 04:30 Chloride 102 mmol/L (101-111) 05/16/19 04:30 Carbon Dioxide 27 mmol/L (21-32) 05/16/19 04:30 Anion Gap 12.0 (6-13) 05/16/19 04:30 BUN 35 mg/dL (6-20) H 05/16/19 04:30 Creatinine 1.0 mg/dL (0.6-1.2) 05/16/19 04:30 Estimated GFR (MDRD) 73 (>89) L 05/16/19 04:30 Glucose 175 mg/dL (70-100) H 05/16/19 04:30 Lactic Acid 1.3 mmol/L (0.5-2.2) 05/15/19 10:12 Calcium 9.3 mg/dL (8.5-10.3) 05/16/19 04:30 Magnesium 2.3 mg/dL (1.7-2.8) 05/15/19 10:12 Total Bilirubin 1.2 mg/dL (0.2-1.0) H 05/15/19 10:12 AST 29 IU/L (10-42) 05/15/19 10:12 ALT 32 IU/L (10-60) 05/15/19 10:12 Alkaline Phosphatase 95 IU/L (42-121) 05/15/19 10:12 Troponin I High Sens 136.7 ng/L (2.3-19.7) H* 05/15/19 15:54 B-Natriuretic Peptide 306 pg/mL (5-100) H 05/16/19 04:30 Total Protein 8.1 g/dL (6.7-8.2) 05/15/19 10:12 Albumin 3.6 g/dL (3.2-5.5) 05/15/19 10:12 Globulin 4.5 g/dL (2.1-4.2) H 05/15/19 10:12 Albumin/Globulin Ratio 0.8 (1.0-2.2) L 05/15/19 10:12 Lipase 27 U/L (22-51) 05/15/19 10:12 Nasal Screen MRSA (PCR) NEGATIVE (NEGATIVE) 05/15/19 17:40
[2019-05-16] MEDS: MONTELUKAST 10 MG TABLET PO SCH (19:47)
[2019-05-16] MEDS: GABAPENTIN 300 MG CAPSULE PO SCH (21:18)
[2019-05-16] MEDS ORDERED: CALCIUM CARBONATE CHEW 500 MG TABLET ONE (23:23)
[2019-05-17] MEDS ORDERED: CALCIUM CARBONATE CHEW 500 MG TABLET PO PRN (00:39)
[2019-05-17 03:12] LABS: BASOPHILS % (AUTO) 0.3 %; EOSINOPHILS # (AUTO) 0.1 10^3/uL (0.0-0.7); LYMPHOCYTES # (AUTO) 0.7 10^3/uL (1.5-3.5); LYMPHOCYTES % (AUTO) 6.5 %; MEAN CORPUSCULAR HEMOGLOBIN 30.9 pg (27.0-31.0); MEAN CORPUSCULAR HGB CONC 31.5 g/dL (32.0-36.0); MEAN CORPUSCULAR VOLUME 98.2 fL (80.0-94.0); MEAN PLATELET VOLUME 9.3 fL (7.4-11.4); MONOCYTES # (AUTO) 0.3 10^3/uL (0.0-1.0); MONOCYTES % (AUTO) 2.8 %; NEUTROPHILS # (AUTO) 9.5 10^3/uL (1.5-6.6); NEUTROPHILS % (AUTO) 86.5 %; PLT - PLATELET COUNT 345 10^3/uL (130-450); RED BLOOD COUNT 3.88 10^6/uL (4.70-6.10); RED CELL DISTRIBUTION WIDTH 13.7 % (12.0-15.0); WHITE BLOOD COUNT 10.9 x10^3/uL (4.8-10.8)
[2019-05-17 03:21] LABS: CALCIUM 9.5 mg/dL (8.5-10.3); CREATININE 1.1 mg/dL (0.6-1.2)
[2019-05-17 05:31] LABS: GASTROCCULT Negative (Negative)
[2019-05-17] MEDS: IPRATROPIUM/ALBUTEROL 3 ML NEB INH SCH ×4 (05:55→19:14)
[2019-05-17] MEDS: BUDESONIDE 0.5 MG/2 ML NEB INH SCH ×2 (05:55→19:14)
[2019-05-17] MEDS: FORMOTEROL FUMARATE NEB 20 MCG/2 ML INH SCH ×2 (05:55→19:14)
[2019-05-17] MEDS: SODIUM CHLORIDE FLUSH 0.9% 10 ML SYRINGE IVP PRN ×2 (06:15→06:48)
[2019-05-17] MEDS: methylPREDNISolone SUCCINATE 125 MG/2 ML VIAL IVP SCH ×3 (06:15→21:01)
[2019-05-17] MEDS: PANTOPRAZOLE 40 MG VIAL IVP SCH ×4 (06:48→20:41)
[2019-05-17] MEDS: cefTRIAXone 2 GM in SODIUM CHLORIDE 0.9% MINIBAG 100 ML IV SCH ×2 (09:03→10:33)
[2019-05-17] MEDS: SACCHAROMYCES BOULARDII 250 MG CAPSULE PO SCH ×2 (09:04→16:01)
[2019-05-17] MEDS: guaiFENesin 600 MG TABLET PO SCH ×2 (09:04→20:41)
[2019-05-17] MEDS: NICOTINE 14 MG PATCH TOP SCH (09:04)
[2019-05-17] MEDS: GABAPENTIN 300 MG CAPSULE PO SCH ×4 (09:04→20:26)
[2019-05-17] MEDS: SODIUM CHLORIDE FLUSH 0.9% 10 ML SYRINGE IVP SCH ×2 (09:04→16:01)
[2019-05-17] MEDS: AZITHROMYCIN 250 MG TABLET PO SCH (09:06)
[2019-05-17] MEDS: HYDROcod/ACETAM 5/325 MG TABLET PO PRN ×3 (09:11→22:21)
[2019-05-17 11:13] LABS: HGB - HEMOGLOBIN 12.1 g/dL (14.0-18.0); MEAN CORPUSCULAR HEMOGLOBIN 30.9 pg (27.0-31.0); MEAN CORPUSCULAR HGB CONC 31.1 g/dL (32.0-36.0); MEAN CORPUSCULAR VOLUME 99.2 fL (80.0-94.0); MEAN PLATELET VOLUME 9.2 fL (7.4-11.4); RED BLOOD COUNT 3.92 10^6/uL (4.70-6.10); RED CELL DISTRIBUTION WIDTH 13.7 % (12.0-15.0); WHITE BLOOD COUNT 10.6 x10^3/uL (4.8-10.8)
[2019-05-17 17:29] LABS: HGB - HEMOGLOBIN 11.4 g/dL (14.0-18.0); MEAN CORPUSCULAR HEMOGLOBIN 30.7 pg (27.0-31.0); MEAN CORPUSCULAR HGB CONC 30.7 g/dL (32.0-36.0); MEAN PLATELET VOLUME 9.1 fL (7.4-11.4); RED BLOOD COUNT 3.71 10^6/uL (4.70-6.10); RED CELL DISTRIBUTION WIDTH 13.5 % (12.0-15.0); WHITE BLOOD COUNT 10.2 x10^3/uL (4.8-10.8)
--- NOTE | 2019-05-17 18:30 | PROVIDER PROGRESS NOTE ---
Assessment/Plan - Problem List (1) Hematemesis Assessment/Plan: We will follow his H&H every 6 hours for 1 day. He was no longer nauseated and tolerated a light breakfast therefore will advance diet. Start therapeutic treatment with IV Protonix (2) COPD with exacerbation Assessment/Plan: Significant improvement with better air movement, no air hunger, no need for BiPAP for over 36 hours. We will move out of ICU. Continue steroids, nebs, Mucinex, Singulair Assess with PT for ambulation (3) Acute bronchitis Assessment/Plan: Still has a cough, Mucinex is helping with expectoration. Accapella also ordered. Continue with empiric antibiotics. Blood cultures are negative to date andsputum culture results showed mixed oral marge, no specific bacterial pathogen (4) Cor pulmonale Assessment/Plan: Newly diagnosed by echo during this admission. He has no signs of right heart failure (5) Tobacco abuse Assessment/Plan: He has declined a nicotine patch. Today he did state he wants to quit, after decreasing down to one quarter to half pack a day recently. (6) Respiratory acidosis Assessment/Plan: Resolved - Current Meds Current Meds: Current Medications Generic Name Dose Route Start Last Admin Trade Name Freq PRN Reason Stop Dose Admin Hydrocodone Bitart/Acetaminophen 1 tab 05/15/19 11:54 05/17/19 16:01 [place] 5/325 PO 1 tab Q4HR PRN Administration Pain 5 to 7 Albuterol/Ipratropium 3 ml 05/15/19 15:00 05/17/19 14:15 Duoneb INH 3 ml RTQID REBECCA Administration Azithromycin 250 mg 05/16/19 09:00 05/17/19 09:06 Zithromax PO 05/19/19 09:01 250 mg DAILY REBECCA Administration Budesonide 0.5 mg 05/15/19 19:00 05/17/19 05:55 Pulmicort INH 0.5 mg RTBID REBECCA Administration Calcium Carbonate/Glycine 500 mg 05/17/19 00:39 05/16/19 23:20 Tums PO 500 mg TID PRN Administration heartburn Formoterol Fumarate 20 mcg 05/15/19 19:00 05/17/19 05:55 Perforomist INH 20 mcg RTBID REBECCA Administration Gabapentin 300 mg 05/16/19 22:00 05/17/19 09:04 Neurontin PO 300 mg BID REBECCA Administration Gabapentin 300 mg 05/17/19 14:00 05/17/19 13:30 Neurontin PO 300 mg TID REBECCA Administration Guaifenesin 600 mg 05/15/19 21:00 05/17/19 09:04 Mucinex PO 600 mg BID REBECCA Administration Ceftriaxone Sodium 2 gm/ 100 mls @ 200 mls/hr 05/16/19 09:00 05/17/19 11:15 Sodium Chloride IV Infused DAILY REBECCA Infusion Methylprednisolone Sodium Succinate 80 mg 05/15/19 14:00 05/17/19 13:30 Solu-Medrol (125mg Vial) IVP 80 mg TID REBECCA Administration Montelukast Sodium 10 mg 05/15/19 21:00 05/16/19 19:47 Singulair PO 10 mg QPM REBECCA Administration Nicotine 1 patch 05/15/19 14:00 05/17/19 09:04 Nicoderm TOP Not Given DAILY REBECCA Pantoprazole Sodium 40 mg 05/17/19 07:00 05/17/19 10:33 Protonix IVP 40 mg BID REBECCA Administration Saccharomyces Boulardii 250 mg 05/15/19 17:00 05/17/19 16:01 Florastor PO 250 mg BIDWM REBECCA Administration Sodium Chloride 10 ml 05/15/19 11:54 05/17/19 06:48 Normal Saline Flush 0.9% IVP 10 ml PRN PRN Administration NEEDED PER PROVIDER ORDERS Sodium Chloride 10 ml 05/15/19 17:00 05/17/19 16:01 Normal Saline Flush 0.9% IVP 10 ml 0100,0900,1700 REBECCA Administration - Lab Result Fish Bone Diagrams: 05/17/19 17:15 05/17/19 03:00 - Additional Planning My Orders: My Active Orders 05/17/19 14:00 Gabapentin [Neurontin] 300 mg PO TID 05/18/19 05:00 BMP - BASIC METABOLIC PANEL [CHEM] DAILYLAB CBC - COMP BLD CT W/AUTO DIFF [HEME] DAILYLAB Subjective - Subjective Patient Reports: Feeling Better, Cough Nursing Reports: Vomitting, Other (2 episodes of "coffee-ground emesis" reported overnight. Then when it was heme tested, it is negative.) Objective Vital Signs: Vital Signs - 24 hr 05/16/19 05/16/19 05/16/19 19:00 19:54 20:00 Temperature Heart Rate 81 Heart Rate [ 93 88 Monitoring electrodes] Heart Rate [ Sitting] Respiratory 14 10 L 19 Rate Blood Pressure 134/68 H 147/72 H [Left Brachial artery] Blood Pressure [Sitting] O2 Saturation 95 100 05/16/19 05/16/19 05/16/19 21:00 22:00 23:00 Temperature 37.1 C 36.7 C Heart Rate Heart Rate [ 106 H 94 94 Monitoring electrodes] Heart Rate [ Sitting] Respiratory 20 18 16 Rate Blood Pressure 132/76 H 153/73 H 164/79 H [Left Brachial artery] Blood Pressure [Sitting] O2 Saturation 90 L 96 94 05/17/19 05/17/19 05/17/19 00:00 00:35 01:00 Temperature Heart Rate Heart Rate [ 94 83 Monitoring electrodes] Heart Rate [ Sitting] Respiratory 18 17 19 Rate Blood Pressure 156/79 H 147/79 H [Left Brachial artery] Blood Pressure [Sitting] O2 Saturation 94 98 99 05/17/19 05/17/19 05/17/19 01:24 02:00 03:00 Temperature Heart Rate Heart Rate [ 91 78 Monitoring electrodes] Heart Rate [ Sitting] Respiratory 18 16 21 Rate Blood Pressure 156/81 H 149/78 H [Left Brachial artery] Blood Pressure [Sitting] O2 Saturation 99 95 92 05/17/19 05/17/19 05/17/19 04:00 05:00 05:57 Temperature 37.1 C Heart Rate 106 H Heart Rate [ 89 87 Monitoring electrodes] Heart Rate [ Sitting] Respiratory 18 17 19 Rate Blood Pressure 156/82 H 149/73 H [Left Brachial artery] Blood Pressure [Sitting] O2 Saturation 90 L 93 05/17/19 05/17/19 05/17/19 06:14 07:00 08:00 Temperature 36.8 C Heart Rate Heart Rate [ 112 H 103 H 98 Monitoring electrodes] Heart Rate [ Sitting] Respiratory 17 19 17 Rate Blood Pressure 158/97 H 159/80 H 152/77 H [Left Brachial artery] Blood Pressure [Sitting] O2 Saturation 98 95 95 05/17/19 05/17/19 05/17/19 09:00 10:00 10:11 Temperature Heart Rate 87 Heart Rate [ 96 80 Monitoring electrodes] Heart Rate [ Sitting] Respiratory 16 18 21 Rate Blood Pressure 162/71 H 144/72 H [Left Brachial artery] Blood Pressure [Sitting] O2 Saturation 96 97 05/17/19 05/17/19 05/17/19 10:40 11:00 11:15 Temperature 36.6 C Heart Rate Heart Rate [ 88 Monitoring electrodes] Heart Rate [ 95 Sitting] Respiratory Rate Blood Pressure 151/81 H [Left Brachial artery] Blood Pressure 140/74 H [Sitting] O2 Saturation 94 05/17/19 05/17/19 05/17/19 14:15 15:08 15:46 Temperature 36.7 C Heart Rate 103 H Heart Rate [ 98 Monitoring electrodes] Heart Rate [ 99 Sitting] Respiratory 20 18 Rate Blood Pressure 146/66 H [Left Brachial artery] Blood Pressure 148/66 H [Sitting] O2 Saturation 92 05/17/19 17:15 Temperature 36.7 C Heart Rate 103 H Heart Rate [ Monitoring electrodes] Heart Rate [ Sitting] Respiratory 20 Rate Blood Pressure [Left Brachial artery] Blood Pressure [Sitting] O2 Saturation 94 Oxygen O2 Source Nasal cannula Oxygen Flow Rate 8 I&O (Last 24 Hrs): Intake and Output Totals x24h 05/15/19 05/16/19 05/17/19 23:59 23:59 23:59 Intake Total 8228 567 4544 Output Total 812 568 6196 Balance 1230 400 40 General: Alert, Oriented x3 HEENT: Mucous membr. moist/pink Neck: Supple, No JVD Neuro: Alert, Non Focal Cardiovascular: No murmurs Respiratory: No respiratory distress, Wheezes, Other (Very poor air movement) Abdomen: Normal bowel sounds, Soft Extremities: No edema - Results Results: Laboratory Results WBC 10.2 x10^3/uL (4.8-10.8) 05/17/19 17:15 RBC 3.71 10^6/uL (4.70-6.10) L 05/17/19 17:15 Hgb 11.4 g/dL (14.0-18.0) L 05/17/19 17:15 Hct 37.1 % (42.0-52.0) L 05/17/19 17:15 MCV 100.0 fL (80.0-94.0) H 05/17/19 17:15 MCH 30.7 pg (27.0-31.0) 05/17/19 17:15 MCHC 30.7 g/dL (32.0-36.0) L 05/17/19 17:15 RDW 13.5 % (12.0-15.0) 05/17/19 17:15 Plt Count 315 10^3/uL (130-450) 05/17/19 17:15 MPV 9.1 fL (7.4-11.4) 05/17/19 17:15 Neut # (Auto) 9.5 10^3/uL (1.5-6.6) H 05/17/19 03:00 Lymph # (Auto) 0.7 10^3/uL (1.5-3.5) L 05/17/19 03:00 [place] # (Auto) 0.3 10^3/uL (0.0-1.0) 05/17/19 03:00 Eos # (Auto) 0.1 10^3/uL (0.0-0.7) 05/17/19 03:00 Baso # (Auto) 0.0 10^3/uL (0.0-0.1) 05/17/19 03:00 Absolute Nucleated RBC 0.00 x10^3/uL 05/17/19 03:00 Total Counted 100 05/16/19 04:30 Band Neuts % (Manual) 9 % (0-10) 05/16/19 04:30 Abnorm Lymph % (Manual) 0 % 05/16/19 04:30 Nucleated RBC % 0.0 /100WBC 05/17/19 03:00 Neutrophils # (Manual) 7.9 10^3/uL (1.5-6.6) H 05/16/19 04:30 Lymphocytes # (Manual) 0.7 10^3/uL (1.5-3.5) L 05/16/19 04:30 Monocytes # (Manual) 0.2 10^3/uL (0.0-1.0) 05/16/19 04:30 Eosinophils # (Manual) 0.0 10^3/uL (0-0.7) 05/16/19 04:30 Basophils # (Manual) 0.0 10^3/uL (0-0.1) 05/16/19 04:30 Differential Comment MANUAL DIFFERENTIAL 05/16/19 04:30 Platelet Estimate NORMAL (130-450,000) (NORMAL) 05/16/19 04:30 RBC Morph Micro Appear NORMAL APPEARANCE (NORMAL) 05/16/19 04:30 Bld Gas Analysis Time 0446 05/16/19 04:40 Sample Site RIGHT RADIAL 05/16/19 04:40 ABG pH 7.36 (7.35-7.45) 05/16/19 04:40 ABG pCO2 41 mmHg (34-45) 05/16/19 04:40 ABG pO2 48 mmHg (80-100) L* 05/16/19 04:40 ABG HCO3 22.3 mmol/L (22.0-26.0) 05/16/19 04:40 ABG Total CO2 23.6 MMOL/L (21.0-29.0) 05/16/19 04:40 ABG O2 Saturation 85 % (94-98) L* 05/16/19 04:40 ABG Oximetry Spot Check 93 % 05/15/19 11:00 ABG Base Excess -3.0 mmol/L (-2.0-3.0) L 05/16/19 04:40 Jw Test POSITIVE 05/16/19 04:40 VBG pH 7.201 (7.31-7.41) L 05/15/19 15:54 VBG pCO2 59.5 mmHg (41-51) H 05/15/19 15:54 VBG pO2 168.5 mmHg (25-47) H 05/15/19 15:54 VBG HCO3 22.8 mmol/L (23-28) L 05/15/19 15:54 VBG Total CO2 24.6 mmol/L (24-29) 05/15/19 15:54 VBG O2 Saturation 98.8 % (60-80) H 05/15/19 15:54 VBG Base Excess -6.0 mmol/L (-2 - +2) L 05/15/19 15:54 Respiration Rate 12 b/min 05/16/19 04:40 O2 Delivery Device BiPAP 05/16/19 04:40 O2 Liters/Min 6.00 LPM 05/15/19 11:00 FiO2 30.00 05/16/19 04:40 EPAP 5 cmH2O 05/16/19 04:40 IPAP 12 cmH2O 05/16/19 04:40 Sodium 141 mmol/L (135-145) 05/17/19 03:00 Potassium 4.7 mmol/L (3.5-5.0) 05/17/19 03:00 Chloride 101 mmol/L (101-111) 05/17/19 03:00 Carbon Dioxide 29 mmol/L (21-32) 05/17/19 03:00 Anion Gap 11.0 (6-13) 05/17/19 03:00 BUN 44 mg/dL (6-20) H 05/17/19 03:00 Creatinine 1.1 mg/dL (0.6-1.2) 05/17/19 03:00 Estimated GFR (MDRD) 65 (>89) L 05/17/19 03:00 Glucose 210 mg/dL (70-100) H 05/17/19 03:00 Lactic Acid 1.3 mmol/L (0.5-2.2) 05/15/19 10:12 Calcium 9.5 mg/dL (8.5-10.3) 05/17/19 03:00 Magnesium 2.3 mg/dL (1.7-2.8) 05/15/19 10:12 Total Bilirubin 1.2 mg/dL (0.2-1.0) H 05/15/19 10:12 AST 29 IU/L (10-42) 05/15/19 10:12 ALT 32 IU/L (10-60) 05/15/19 10:12 Alkaline Phosphatase 95 IU/L (42-121) 05/15/19 10:12 Troponin I High Sens 136.7 ng/L (2.3-19.7) H* 05/15/19 15:54 B-Natriuretic Peptide 306 pg/mL (5-100) H 05/16/19 04:30 Total Protein 8.1 g/dL (6.7-8.2) 05/15/19 10:12 Albumin 3.6 g/dL (3.2-5.5) 05/15/19 10:12 Globulin 4.5 g/dL (2.1-4.2) H 05/15/19 10:12 Albumin/Globulin Ratio 0.8 (1.0-2.2) L 05/15/19 10:12 Lipase 27 U/L (22-51) 05/15/19 10:12 Nasal Screen MRSA (PCR) NEGATIVE (NEGATIVE) 05/15/19 17:40 Gastric Fluid pH 4.0 05/17/19 04:15 Gastric Occult Blood Negative (Negative) 05/17/19 04:15
[2019-05-17] MEDS: MONTELUKAST 10 MG TABLET PO SCH (20:41)
[2019-05-17 23:08] LABS: HGB - HEMOGLOBIN 11.2 g/dL (14.0-18.0); MEAN CORPUSCULAR HEMOGLOBIN 30.8 pg (27.0-31.0); MEAN CORPUSCULAR HGB CONC 30.9 g/dL (32.0-36.0); MEAN CORPUSCULAR VOLUME 99.5 fL (80.0-94.0); MEAN PLATELET VOLUME 9.1 fL (7.4-11.4); RED BLOOD COUNT 3.64 10^6/uL (4.70-6.10); RED CELL DISTRIBUTION WIDTH 13.5 % (12.0-15.0)
[2019-05-17] MEDS ORDERED: HYDROcod/ACETAM 5/325 MG TABLET PO STA (23:50)
[2019-05-18 05:27] LABS: BASOPHILS % (AUTO) 0.4 %; HGB - HEMOGLOBIN 11.3 g/dL (14.0-18.0); LYMPHOCYTES % (AUTO) 7.8 %; MEAN CORPUSCULAR HEMOGLOBIN 30.7 pg (27.0-31.0); MEAN CORPUSCULAR HGB CONC 30.8 g/dL (32.0-36.0); MEAN CORPUSCULAR VOLUME 99.7 fL (80.0-94.0); MEAN PLATELET VOLUME 9.4 fL (7.4-11.4); MONOCYTES % (AUTO) 2.4 %; NEUTROPHILS % (AUTO) 80.7 %; PLT - PLATELET COUNT 291 10^3/uL (130-450); RED BLOOD COUNT 3.68 10^6/uL (4.70-6.10); RED CELL DISTRIBUTION WIDTH 13.4 % (12.0-15.0); WHITE BLOOD COUNT 9.3 x10^3/uL (4.8-10.8)
[2019-05-18 05:34] LABS: ABNORMAL LYMPHS % (MANUAL) 0 %
[2019-05-18 05:43] LABS: CALCIUM 9.1 mg/dL (8.5-10.3); CREATININE 1.1 mg/dL (0.6-1.2)
[2019-05-18] MEDS: GABAPENTIN 300 MG CAPSULE PO SCH ×5 (06:24→21:16)
[2019-05-18] MEDS: SODIUM CHLORIDE FLUSH 0.9% 10 ML SYRINGE IVP SCH ×3 (06:24→16:28)
[2019-05-18] MEDS: methylPREDNISolone SUCCINATE 125 MG/2 ML VIAL IVP SCH (06:25)
[2019-05-18 06:31] LABS: BAND NEUTROPHILS % (MANUAL) 1 %; LYMPHOCYTES # (MANUAL) 0.2 10^3/uL (1.5-3.5); LYMPHOCYTES % (MANUAL) 2 %; MONOCYTES # (MANUAL) 0.3 10^3/uL (0.0-1.0); MYELOCYTES % (MANUAL) 7 %; PROMYELOCYTES % (MANUAL) 1 %
[2019-05-18 06:32] LABS: RBC MORPHOLOGY (MULTIPLE) NORMAL APPEARANCE (NORMAL)
[2019-05-18 06:33] LABS: DIFFERENTIAL COMMENT MANUAL DIFFERENTIAL; PLATELET ESTIMATE, MANUAL NORMAL (130-450,000) (NORMAL); PLATELET MORPHOLOGY NORMAL APPEARANCE (NORMAL)
[2019-05-18] MEDS: HYDROcod/ACETAM 5/325 MG TABLET PO PRN ×5 (06:36→22:01)
[2019-05-18] MEDS: BUDESONIDE 0.5 MG/2 ML NEB INH SCH ×2 (07:40→19:26)
[2019-05-18] MEDS: FORMOTEROL FUMARATE NEB 20 MCG/2 ML INH SCH ×2 (07:40→19:26)
[2019-05-18] MEDS: IPRATROPIUM/ALBUTEROL 3 ML NEB INH SCH ×4 (07:40→19:27)
[2019-05-18] MEDS: cefTRIAXone 2 GM in SODIUM CHLORIDE 0.9% MINIBAG 100 ML IV SCH (08:32)
[2019-05-18] MEDS: SACCHAROMYCES BOULARDII 250 MG CAPSULE PO SCH ×2 (08:33→16:28)
[2019-05-18] MEDS: guaiFENesin 600 MG TABLET PO SCH ×2 (08:33→21:16)
[2019-05-18] MEDS: PANTOPRAZOLE 40 MG VIAL IVP SCH (08:33)
[2019-05-18] MEDS: AZITHROMYCIN 250 MG TABLET PO SCH (08:35)
[2019-05-18] MEDS: NICOTINE 14 MG PATCH TOP SCH (09:57)
--- NOTE | 2019-05-18 12:03 | PROVIDER PROGRESS NOTE ---
Assessment/Plan - Problem List (1) COPD with exacerbation Assessment/Plan: Continues to have very minimal but positive improvements daily. Will decrease his steroid from 80 3 times daily to 40 3 times daily of Solu- Medrol. Continue Mucinex and Singulair. Continue nebulizers. The son and [id number] are here today who I updated about his condition at bedside. The son indicates that the list of his home inhalers and nebulizers were probably incorrect, since the patient was remembering them from memory. I will have the Pharmacist review and reconcile his med list, while the family is here. Possible discharge home tomorrow (2) Acute bronchitis Assessment/Plan: The sputum grew only normal oral marge. Continue with empiric antibiotics. Continue with pulmonary toilet using Mucinex and Acapella device (3) Cor pulmonale Assessment/Plan: This was diagnosed by echo during this admission. 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 He stated he has decreased down to 1/4 pack a days and is planning on stopping smoking (5) Carcinoma of bladder Assessment/Plan: He does use an indwelling Law. (6) Hematemesis Assessment/Plan: There is been no further vomiting and hemoglobin is stable. He feels that he threw up once just because of the food - Current Meds Current Meds: Current Medications Generic Name Dose Route Start Last Admin Trade Name Freq PRN Reason Stop Dose Admin Hydrocodone Bitart/Acetaminophen 1 tab 05/15/19 11:54 05/18/19 09:58 [place] 5/325 PO 1 tab Q4HR PRN Administration Pain 5 to 7 Albuterol/Ipratropium 3 ml 05/15/19 15:00 05/18/19 11:02 Duoneb INH 3 ml RTQID REBECCA Administration Azithromycin 250 mg 05/16/19 09:00 05/18/19 08:35 Zithromax PO 05/19/19 09:01 250 mg DAILY REBECCA Administration Budesonide 0.5 mg 05/15/19 19:00 05/18/19 07:40 Pulmicort INH 0.5 mg RTBID REBECCA Administration Calcium Carbonate/Glycine 500 mg 05/17/19 00:39 05/16/19 23:20 Tums PO 500 mg TID PRN Administration heartburn Formoterol Fumarate 20 mcg 05/15/19 19:00 05/18/19 07:40 Perforomist INH 20 mcg RTBID REBECCA Administration Gabapentin 300 mg 05/16/19 22:00 05/18/19 08:33 Neurontin PO 300 mg BID REBECCA Administration Gabapentin 300 mg 05/17/19 14:00 05/18/19 06:24 Neurontin PO 300 mg TID REBECCA Administration Guaifenesin 600 mg 05/15/19 21:00 05/18/19 08:33 Mucinex PO 600 mg BID REBECCA Administration Ceftriaxone Sodium 2 gm/ 100 mls @ 200 mls/hr 05/16/19 09:00 05/18/19 09:02 Sodium Chloride IV Infused DAILY REBECCA Infusion Montelukast Sodium 10 mg 05/15/19 21:00 05/17/19 20:41 Singulair PO 10 mg QPM REBECCA Administration Saccharomyces Boulardii 250 mg 05/15/19 17:00 05/18/19 08:33 Florastor PO 250 mg BIDWM REBECCA Administration Sodium Chloride 10 ml 05/15/19 11:54 05/17/19 06:48 Normal Saline Flush 0.9% IVP 10 ml PRN PRN Administration NEEDED PER PROVIDER ORDERS Sodium Chloride 10 ml 05/15/19 17:00 05/18/19 08:33 Normal Saline Flush 0.9% IVP 10 ml 0100,0900,1700 REBECCA Administration - Lab Result Fish Bone Diagrams: 05/18/19 04:30 05/18/19 04:30 - Additional Planning My Orders: My Active Orders 05/17/19 14:00 Gabapentin [Neurontin] 300 mg PO TID 05/18/19 14:00 methylPREDNISolone SUCCINATE [SOLU-Medrol (125MG VIAL)] 40 mg IVP TID 05/18/19 21:00 Famotidine [Pepcid] 20 mg PO BID Subjective - Subjective Patient Reports: Feeling Better Objective Vital Signs: Vital Signs - 24 hr 05/17/19 05/17/19 05/17/19 14:15 15:08 15:46 Temperature 36.7 C Heart Rate 103 H Heart Rate [ Brachial] Heart Rate [ 98 Monitoring electrodes] Heart Rate [ 99 Sitting] Respiratory 20 18 Rate Blood Pressure 146/66 H [Left Brachial artery] Blood Pressure [Right Brachial artery] Blood Pressure 148/66 H [Sitting] O2 Saturation 92 05/17/19 05/17/19 05/17/19 17:15 19:14 20:23 Temperature 36.7 C 36.4 C L Heart Rate 103 H 89 Heart Rate [ Brachial] Heart Rate [ 90 Monitoring electrodes] Heart Rate [ Sitting] Respiratory 20 20 16 Rate Blood Pressure 152/77 H [Left Brachial artery] Blood Pressure [Right Brachial artery] Blood Pressure [Sitting] O2 Saturation 94 92 05/17/19 05/18/19 05/18/19 23:48 03:40 07:44 Temperature 36.6 C 36.4 C L Heart Rate 74 Heart Rate [ 87 77 Brachial] Heart Rate [ Monitoring electrodes] Heart Rate [ Sitting] Respiratory 20 18 18 Rate Blood Pressure [Left Brachial artery] Blood Pressure 148/79 H 138/84 H [Right Brachial artery] Blood Pressure [Sitting] O2 Saturation 95 97 05/18/19 05/18/19 07:56 11:04 Temperature 36.3 C L Heart Rate 70 Heart Rate [ 68 Brachial] Heart Rate [ Monitoring electrodes] Heart Rate [ Sitting] Respiratory 16 18 Rate Blood Pressure [Left Brachial artery] Blood Pressure 123/57 L [Right Brachial artery] Blood Pressure [Sitting] O2 Saturation 92 Oxygen O2 Source Nasal cannula Oxygen Flow Rate 8 I&O (Last 24 Hrs): Intake and Output Totals x24h 05/16/19 05/17/19 05/18/19 23:59 23:59 23:59 Intake Total 950 2360 530 Output Total 550 2100 800 Balance 400 260 -270 General: Oriented x3 HEENT: Mucous membr. moist/pink Neck: Supple, No JVD Neuro: Alert, Non Focal Cardiovascular: No murmurs Respiratory: Wheezes, Other Abdomen: Soft Extremities: No edema - Results Results: Laboratory Results WBC 9.3 x10^3/uL (4.8-10.8) 05/18/19 04:30 RBC 3.68 10^6/uL (4.70-6.10) L 05/18/19 04:30 Hgb 11.3 g/dL (14.0-18.0) L 05/18/19 04:30 Hct 36.7 % (42.0-52.0) L 05/18/19 04:30 MCV 99.7 fL (80.0-94.0) H 05/18/19 04:30 MCH 30.7 pg (27.0-31.0) 05/18/19 04:30 MCHC 30.8 g/dL (32.0-36.0) L 05/18/19 04:30 RDW 13.4 % (12.0-15.0) 05/18/19 04:30 Plt Count 291 10^3/uL (130-450) 05/18/19 04:30 MPV 9.4 fL (7.4-11.4) 05/18/19 04:30 Neut # (Auto) Not Reportable 05/18/19 04:30 Lymph # (Auto) Not Reportable 05/18/19 04:30 [place] # (Auto) Not Reportable 05/18/19 04:30 Eos # (Auto) Not Reportable 05/18/19 04:30 Baso # (Auto) Not Reportable 05/18/19 04:30 Absolute Nucleated RBC Not Reportable 05/18/19 04:30 Total Counted 100 05/18/19 04:30 Band Neuts % (Manual) 1 % (0-10) 05/18/19 04:30 Abnorm Lymph % (Manual) 0 % 05/18/19 04:30 Myelocytes % 7 % (-0) H 05/18/19 04:30 Promyelocytes % 1 % (-0) H 05/18/19 04:30 Nucleated RBC % Not Reportable 05/18/19 04:30 Neutrophils # (Manual) 8.1 10^3/uL (1.5-6.6) H 05/18/19 04:30 Lymphocytes # (Manual) 0.2 10^3/uL (1.5-3.5) L 05/18/19 04:30 Monocytes # (Manual) 0.3 10^3/uL (0.0-1.0) 05/18/19 04:30 Eosinophils # (Manual) 0.0 10^3/uL (0-0.7) 05/18/19 04:30 Basophils # (Manual) 0.0 10^3/uL (0-0.1) 05/18/19 04:30 Differential Comment MANUAL DIFFERENTIAL 05/18/19 04:30 WBC Morphology NORMAL APPEARANCE (NORMAL) 05/18/19 04:30 Platelet Estimate NORMAL (130-450,000) (NORMAL) 05/18/19 04:30 Platelet Morphology NORMAL APPEARANCE (NORMAL) 05/18/19 04:30 RBC Morph Micro Appear NORMAL APPEARANCE (NORMAL) 05/18/19 04:30 Bld Gas Analysis Time 0446 05/16/19 04:40 Sample Site RIGHT RADIAL 05/16/19 04:40 ABG pH 7.36 (7.35-7.45) 05/16/19 04:40 ABG pCO2 41 mmHg (34-45) 05/16/19 04:40 ABG pO2 48 mmHg (80-100) L* 05/16/19 04:40 ABG HCO3 22.3 mmol/L (22.0-26.0) 05/16/19 04:40 ABG Total CO2 23.6 MMOL/L (21.0-29.0) 05/16/19 04:40 ABG O2 Saturation 85 % (94-98) L* 05/16/19 04:40 ABG Oximetry Spot Check 93 % 05/15/19 11:00 ABG Base Excess -3.0 mmol/L (-2.0-3.0) L 05/16/19 04:40 Jw Test POSITIVE 05/16/19 04:40 VBG pH 7.201 (7.31-7.41) L 05/15/19 15:54 VBG pCO2 59.5 mmHg (41-51) H 05/15/19 15:54 VBG pO2 168.5 mmHg (25-47) H 05/15/19 15:54 VBG HCO3 22.8 mmol/L (23-28) L 05/15/19 15:54 VBG Total CO2 24.6 mmol/L (24-29) 05/15/19 15:54 VBG O2 Saturation 98.8 % (60-80) H 05/15/19 15:54 VBG Base Excess -6.0 mmol/L (-2 - +2) L 05/15/19 15:54 Respiration Rate 12 b/min 05/16/19 04:40 O2 Delivery Device BiPAP 05/16/19 04:40 O2 Liters/Min 6.00 LPM 05/15/19 11:00 FiO2 30.00 05/16/19 04:40 EPAP 5 cmH2O 05/16/19 04:40 IPAP 12 cmH2O 05/16/19 04:40 Sodium 139 mmol/L (135-145) 05/18/19 04:30 Potassium 5.0 mmol/L (3.5-5.0) 05/18/19 04:30 Chloride 100 mmol/L (101-111) L 05/18/19 04:30 Carbon Dioxide 30 mmol/L (21-32) 05/18/19 04:30 Anion Gap 9.0 (6-13) 05/18/19 04:30 BUN 46 mg/dL (6-20) H 05/18/19 04:30 Creatinine 1.1 mg/dL (0.6-1.2) 05/18/19 04:30 Estimated GFR (MDRD) 65 (>89) L 05/18/19 04:30 Glucose 221 mg/dL (70-100) H 05/18/19 04:30 Lactic Acid 1.3 mmol/L (0.5-2.2) 05/15/19 10:12 Calcium 9.1 mg/dL (8.5-10.3) 05/18/19 04:30 Magnesium 2.3 mg/dL (1.7-2.8) 05/15/19 10:12 Total Bilirubin 1.2 mg/dL (0.2-1.0) H 05/15/19 10:12 AST 29 IU/L (10-42) 05/15/19 10:12 ALT 32 IU/L (10-60) 05/15/19 10:12 Alkaline Phosphatase 95 IU/L (42-121) 05/15/19 10:12 Troponin I High Sens 136.7 ng/L (2.3-19.7) H* 05/15/19 15:54 B-Natriuretic Peptide 306 pg/mL (5-100) H 05/16/19 04:30 Total Protein 8.1 g/dL (6.7-8.2) 05/15/19 10:12 Albumin 3.6 g/dL (3.2-5.5) 05/15/19 10:12 Globulin 4.5 g/dL (2.1-4.2) H 05/15/19 10:12 Albumin/Globulin Ratio 0.8 (1.0-2.2) L 05/15/19 10:12 Lipase 27 U/L (22-51) 05/15/19 10:12 Nasal Screen MRSA (PCR) NEGATIVE (NEGATIVE) 05/15/19 17:40 Gastric Fluid pH 4.0 05/17/19 04:15 Gastric Occult Blood Negative (Negative) 05/17/19 04:15
[2019-05-18] MEDS ORDERED: methylPREDNISolone SUCCINATE 125 MG/2 ML VIAL IVP SCH (14:00)
[2019-05-18] MEDS ORDERED: methylPREDNISolone SUCCINATE 40 MG/ML VIAL IVP SCH (14:07)
[2019-05-18] MEDS: methylPREDNISolone SUCCINATE 40 MG/ML VIAL IVP SCH ×2 (14:16→21:16)
[2019-05-18] MEDS: FAMOTIDINE 20 MG TABLET PO SCH (21:14)
[2019-05-18] MEDS: MONTELUKAST 10 MG TABLET PO SCH (21:16)
[2019-05-18] MEDS: SODIUM CHLORIDE FLUSH 0.9% 10 ML SYRINGE IVP PRN (21:20)
[2019-05-19] MEDS: SODIUM CHLORIDE FLUSH 0.9% 10 ML SYRINGE IVP SCH ×2 (02:14→05:42)
[2019-05-19] MEDS: HYDROcod/ACETAM 5/325 MG TABLET PO PRN ×3 (05:37→10:47)
[2019-05-19] MEDS: GABAPENTIN 300 MG CAPSULE PO SCH ×3 (05:38→13:38)
[2019-05-19] MEDS: methylPREDNISolone SUCCINATE 40 MG/ML VIAL IVP SCH ×2 (05:46→13:38)
[2019-05-19] MEDS: FORMOTEROL FUMARATE NEB 20 MCG/2 ML INH SCH (07:29)
[2019-05-19] MEDS: IPRATROPIUM/ALBUTEROL 3 ML NEB INH SCH ×2 (07:29→11:44)
[2019-05-19] MEDS: BUDESONIDE 0.5 MG/2 ML NEB INH SCH (07:29)
--- NOTE | 2019-05-19 08:05 | Discharge Plan ---
Discharge Plan Problem Reviewed?: Yes Disposition: Home, Self Care Condition: Stable Prescriptions: Albuterol 2.5 mg INH Q4HR PRN #90 neb MDD 6 doses PRN Reason: Asthma Fluticasone Propion/Salmeterol [[place]ixela 500-50 Inhub] 1 puffs INH BID #1 blst.w.dev Ipratropium/Albuterol [Duoneb] 3 ml INH RTQID #56 neb Mometasone Furoate [Asmanex Hfa] 1 puffs INH BID #2 hfa.aer.ad Montelukast [Singulair] 10 mg PO QPM #30 tablet predniSONE [Prednisone] 20 mg PO DAILYWM #37 tablet Diet: Regular Activity Restrictions: Activity as Tolerated Shower Restrictions: No Driving Restrictions: No Instruction Topics: Montelukast oral tablets, Guaifenesin oral ER tablets, COPD Health Concerns: You were admitted with a severe exacerbation of COPD, requiring oxygen via BiPAP mask in the ICU. You have been on IV steroids, maximum nebulizer treatments and finished a course of antibiotics. Plan of Treatment: Oral steroids have now been prescribed with a tapering schedule. Nebulizer treatments have been reordered for you. Prescriptions were sent electronically to your pharmacy. You are now prescribed to be on oxygen at 2L/min setting, 21/11. See your Livestock Haulier as scheduled in the upcoming weeks. Stop smoking. A nicotine patch was offered to you, which you declined. You qualify for participating in Pulmonary Rehab at the [facility] here. A referral has been sent and you will be contacted by the Rehab staff, regarding participation. Care Goals: Improvement in symptoms and stabilization are the goals. Assessment: The patient understands and is agreeable with the plan. Additional Instructions or Follow Up instructions: If you have new or worsening symptoms, call your PCP or Livestock Haulier for advice or come to the emergency room. Follow-Up Care: [facility] - Pulmonary No Smoking: If you smoke, Please STOP! Call for help. Follow-up with: ANDRIY HERNANDEZ MD [Primary Care Provider] -
[2019-05-19 08:50] VITALS: BP 160/87
[2019-05-19] MEDS: cefTRIAXone 2 GM in SODIUM CHLORIDE 0.9% MINIBAG 100 ML IV SCH (08:56)
[2019-05-19] MEDS: guaiFENesin 600 MG TABLET PO SCH (08:56)
[2019-05-19] MEDS: FAMOTIDINE 20 MG TABLET PO SCH (08:56)
[2019-05-19] MEDS: AZITHROMYCIN 250 MG TABLET PO SCH (08:56)
[2019-05-19] MEDS: SACCHAROMYCES BOULARDII 250 MG CAPSULE PO SCH (08:56)
--- NOTE | 2019-05-19 09:25 | DISCHARGE SUMMARY ---
Discharge Summary Admit Date: 05/15/19 Discharge Date: 05/19/19 Discharging Provider: Dr Lesly Garcia Primary Care Provider: Dr Montez Chandler Code Status: Do Not Attempt Resuscitation Condition at Discharge: Stable Discharge Disposition: 01 Home, Self Care - DIAGNOSES Admission Diagnoses: 1. COPD with exacerbation. 2. Respiratory acidosis. 3. Acute bronchitis with elevated white count 4. Right bundle branch block 5. Elevated troponin 6. Chronic pain history Discharge Diagnoses with Status of Each Condition: See below - HPI History of Present Illness: This is a 78-year-old white male with history of COPD and asthma on home oxygen, but he continues to smoke. He is never been admitted here for COPD exacerbation. He also has a history of bladder CA with a Law and osteoarthri tis with chronic back pain. He developed a cough with yellow sputum production 4 to 5 days ago and progressively worsening shortness of breath, and started to use his prn home oxygen constantly, and more frequent home nebulizer dosing. He was still very short of breath and went to his PCP where O2 sat was documented in the 70's% range. He presented to the emergency room, got nebulizer treatments, CXR showed right lower lobe haziness, ABG showed pH of 7.25, PCO2 of 53 consistent with respiratory acidosis. He was admitted for COPD exacerbation with bronchitis/community-acquired pneumonia, marked respiratory distress with respiratory acidosis, and required BiPAP support in the ICU. - HOSPITAL COURSE Hospital Course: (1) COPD with exacerbation He needed BIPAP oxygen support for 1 day in the ICU and then he was transferred out of the ICU and the oxygen was weaned down slowly. He was treated with aggressive nebulizer meds, iv steroids, and Mucinex, Singulair was continued and he got empiric iv Zithromax and iv Ceftriaxone. At discharge his oxygen saturation was assessed: he desaturated to <80% at rest on room air, which improved to 92% with 2L O2, and with walking his O2 sat remained at 90% on 2L O2per n.c. I am ordering a change in his home oxygen order, from being used only prn, to being used at 2L via nasal cannula continuously (21/11) and this was discussed with his [employer] supplier by this Hospitalist. At discharge, his home nebulizers were re-ordered, Albuterol rescue inhaler was ordered, Mucinex and Singulair should continue and Prednisone on a slow tapering schedule was ordered. (2) Respiratory acidosis The admission ABG was: pH 7.25/pCO2 58/O2 68 on 6L FIO2 by ventimask. BIPAP support helped and his ventilation and ABG improved overnight to: pH 7.36/ pCO2 41. (3) Acute bronchitis The sputum grew only normal oral marge, but he got a course of empiric antibiotics and pulmonary toilet using Mucinex and Acapella device. (4) Cor pulmonale This was diagnosed by Echo during this admission with a severely dilated right ventricle with mildly depressed RV function and moderate pulmonary HTN with PA pressure 54 mmHg. He stated he did not know he had this. 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 (5) RBBB This finding is consistent with his COPD and Cor Pulmonale. (6) Tobacco abuse Patient declined a nicotine patch at admission. He stated he has decreased down to 1/4 pack a days and is planning on stopping smoking now, and that his son was throwing out all his cigarettes. (7) Carcinoma of bladder He does use an indwelling Law. - ALLERGIES Allergies/Adverse Reactions: Allergies Allergy/AdvReac Type Severity Reaction Status Date / Time Penicillins Allergy Unknown Verified 05/15/19 09:34 - MEDICATIONS Home Medications: Ambulatory Orders Medication Instructions Recorded Confirmed Gabapentin 300 mg PO TID 11/08/17 05/15/19 Hydrocodone/Acetaminophen 1 tab PO Q4HR PRN MDD 4000mg 11/08/17 05/15/19 [Hydrocodone-Acetamin 10-325 mg] aceteminophen Albuterol 2.5 mg INH Q4HR PRN #90 neb MDD 6 05/19/19 doses Fluticasone Propion/Salmeterol 1 puffs INH BID #1 blst.w.dev 05/19/19 [Wixela 500-50 Inhub] Ipratropium/Albuterol [Duoneb] 3 ml INH RTQID #56 neb 05/19/19 Mometasone Furoate [Asmanex Hfa] 1 puffs INH BID #2 hfa.aer.ad 05/19/19 Montelukast [Singulair] 10 mg PO QPM #30 tablet 05/19/19 predniSONE [Prednisone] 20 mg PO DAILYWM #37 tablet 05/19/19 Albuterol Sulfate [Proair 90 mcg IH Q4H PRN #1 aer.pow.ba 05/20/19 Respiclick] - PHYSICAL EXAM AT DISCHARGE General Appearance: positive: No acute distress, Alert Eyes Bilateral: positive: Normal inspection, EOMI ENT: positive: ENT inspection nml, No signs of dehydration Neck: positive: Nml inspection, No JVD Respiratory: positive: No respiratory distress, Breath sounds nml, Other (Poor air movement but no wheezing or rhonchi.) Cardiovascular: positive: Regular rate & rhythm, Systolic murmur (3/6 at the LLSB, and his PMI is vertically displaced.) Abdomen: positive: Non-tender, Nml bowel sounds, No distention Skin: positive: Other (Tanned, leathery skin of his face.) Extremities: positive: No pedal edema Neurologic/Psychiatric: positive: Oriented x3, Other (Grossly intact) - LABS Result Diagrams: 05/18/19 04:30 05/18/19 04:30 - DIAGNOSTIC IMAGING Diagnostic Imaging Results: Final report reviewed - FOLLOW UP Follow Up: See Actuarial Trainee in the upcoming week, for a previously scheduled appointment. - TIME SPENT Time Spent in Discharge (Minutes): 30
== END 2019-05-19 14:15 | disposition home or self-care (01) | DRG 191 ==
LOC: ED 09:13 → MS3 11:49 → ICU 17:24 → MS3 05-17 10:35
PROVIDERS: ADMIT Internal Medicine; ATTEND Internal Medicine
DX: J44.1 Chronic obstructive pulmonary disease with (acute) exacerbation (principal); E87.2 Acidosis; J06.9 Acute upper respiratory infection, unspecified; R09.02 Hypoxemia; F17.200 Nicotine dependence, unspecified, uncomplicated; K92.0 Hematemesis; J20.9 Acute bronchitis, unspecified; J44.0 Chronic obstructive pulmonary disease with (acute) lower respiratory infection; T38.0X6A Underdosing of glucocorticoids and synthetic analogues, initial encounter; Z91.128 Patient's intentional underdosing of medication regimen for other reason; Y92.009 Unspecified place in unspecified non-institutional (private) residence as the place of occurrence of the external cause; I45.10 Unspecified right bundle-branch block; I27.81 Cor pulmonale (chronic); I27.20 Pulmonary hypertension, unspecified; M19.90 Unspecified osteoarthritis, unspecified site; M54.9 Dorsalgia, unspecified; G89.29 Other chronic pain; Z99.81 Dependence on supplemental oxygen; Z66 Do not resuscitate; Z72.0 Tobacco use; Z85.51 Personal history of malignant neoplasm of bladder; Z96.0 Presence of urogenital implants; Z79.899 Other long term (current) drug therapy; Z79.51 Long term (current) use of inhaled steroids
CPT/HCPCS: 36415; 36600; 71045; 80048; 80053; 82803; 83605; 83690; 83735; 83880; 84484; 85025; 85027; 87040; 87070; 87150; 87205; 93005; 93306; 94640; 94660; 94761; 96361; 96365; 96375; 97116; 97161; 97165; 99284; 99285; A9270; J1170; J7626; 87081

== ENCOUNTER 2021-08-29 00:45 | Outpatient (CLI) | payer MEDICARE | END 2021-08-29 00:46 | disposition critical access hospital (66) | LOC: EMS 00:45 | DX: R06.02 Shortness of breath (principal) | CPT/HCPCS: A0425; A0427 ==

== ENCOUNTER 2021-08-29 00:57 | Inpatient (IN) | payer MEDICARE ==
--- NOTE | 2021-08-29 01:08 | ED Physician Documentation ---
PD HPI DYSPNEA - Stated complaint Stated Complaint: SOA - Chief complaint Chief Complaint: Resp - History obtained from History obtained from: Patient, Family (son) - History of Present Illness Timing - onset: Today (tonight) Timing - onset during: Rest Timing - details: Gradual onset Pain level now: 0 Improved by: O2, Inhaler/neb Associated symptoms: Cough, Diaphoresis, Bilateral edema. No: Fever, Chest pain / discomfort Similar symptoms before: Diagnosis (COPD) Recently seen: Not recently seen - Additional information Additional information: BIBA. Patient c/o dyspnea, worsening over past few hours. Patients PMHx includes COPD, uses oxygen. On EMS arrival , they noted 86% pulse ox on patients home oxygen (EMS unsure how much oxygen patient uses) They administered 2 albuterol nebs with 1 atrovent and placed patient on NRB with 10 L/min oxygen and this resulted in 98% pulse ox. Also given 125mg solu-medrol IV and is finishing a third albuterol neb as he arrives to ED. Shortly before arrival, EMS noted SBP in 60s. Patient provides little contribution to HPI due to respiratory distress on arrival. Review of Systems Unable to obtain: Other (limited due to respiratory distress) Constitutional: denies: Fever Cardiac: reports: Pedal edema. denies: Chest pain / pressure Respiratory: reports: Dyspnea, Cough GI: reports: Abdominal Swelling. denies: Abdominal Pain, Nausea, Vomiting Neurologic: reports: Generalized weakness PD PAST MEDICAL HISTORY - Past Medical History Cardiovascular: None Respiratory: Asthma, COPD, Shortness of breath Neuro: Headaches Endocrine/Autoimmune: None GI: None : Other HEENT: None Psych: None Musculoskeletal: Osteoarthritis, Chronic back pain Derm: Psoriasis - Past Surgical History Past Surgical History: Yes General: Colonoscopy Ortho: Arthroscopic surgery, Spine surgery - Present Medications Home Medications: Ambulatory Orders Medication Instructions Recorded Confirmed Hydrocodone/Acetaminophen 1 tab PO 5XD PRN MDD 4000mg 11/08/17 08/29/21 [Hydrocodone-Acetamin 10-325 mg] aceteminophen Montelukast [Singulair] 10 mg PO QPM #30 tablet 05/19/19 08/29/21 Albuterol Sulfate [Proair 2 puffs INH Q4H PRN 08/29/21 08/29/21 Respiclick] Gabapentin [Neurontin] 300 mg PO BID 08/29/21 08/29/21 Ipratropium/Albuterol [Duoneb] 3 ml INH BID 08/29/21 08/29/21 Torsemide 10 - 20 mg PO DAILY 08/29/21 08/29/21 predniSONE [Prednisone] 10 mg PO DAILYWM 08/29/21 08/29/21 - Allergies Allergies/Adverse Reactions: Allergies Allergy/AdvReac Type Severity Reaction Status Date / Time Penicillins Allergy Unknown Verified 08/29/21 01:18 - Social History Does the pt smoke?: Yes Smoking Status: Current every day smoker Does the pt drink ETOH?: No Does the pt have substance abuse?: No - Immunizations Immunizations are current?: Yes PD ED PE NORMAL - Vitals Vital signs reviewed: Yes - General General: Other (moderate respiratory distress; appears pale) - Neck Neck: No JVD - Abdomen Abdomen: Soft, Other (mild distention; TTP left mid/upper abdomen without rebound or guarding (patient tells me hes had this tenderness for years). soft, nontender hernia surrounding ileal urostomy ) - Back Back: No CVA TTP PD ED PE EXPANDED - Cardiac Cardiac: Tachy, Regular Rhythm - Respiratory Respiratory: Distress, Wheezing, Decreased breath sounds - Derm Derm: Pale, Diaphoretic (mild diaphoresis) - Extremities Extremities: Pedal edema bilateral Results - Vitals Vitals: Vital Signs - 24 hr 08/29/21 08/29/21 08/29/21 00:50 01:04 01:19 Temperature 36.8 C Heart Rate 128 H 123 H Respiratory 20 19 Rate Blood Pressure 85/62 L 90/60 O2 Saturation 97 94 92 08/29/21 08/29/21 08/29/21 01:36 01:55 02:04 Temperature Heart Rate 118 H 113 H 113 H Respiratory 17 17 24 Rate Blood Pressure 84/48 L 91/45 L 86/35 L O2 Saturation 91 L 92 93 08/29/21 08/29/21 08/29/21 02:30 02:55 03:59 Temperature Heart Rate 112 H 112 H 110 H Respiratory 16 17 15 Rate Blood Pressure 113/93 H 97/50 L O2 Saturation 95 97 91 L 08/29/21 08/29/21 08/29/21 04:01 04:41 05:02 Temperature Heart Rate 109 H 11 L 109 H Respiratory 15 17 22 Rate Blood Pressure 91/55 L 93/54 L 99/56 L O2 Saturation 91 L 91 L 91 L 08/29/21 08/29/21 08/29/21 05:57 06:00 06:30 Temperature Heart Rate 103 H 103 H 104 H Respiratory 15 17 17 Rate Blood Pressure 89/56 L 85/57 L 93/60 O2 Saturation 94 93 94 Oxygen O2 Source Nasal cannula Oxygen Flow Rate 4 - EKG (time done) No standard instances Rate: Rate (enter#) (128) Rhythm: NSR [place]: Normal Intervals: RBBB QRS: Normal Ischemia: Normal ST segments Computer interpretation: Disagree with computer (no convincing ST changes) - Labs Labs: Microbiology 08/29/21 01:14 Urine Culture - Preliminary Urine,Random Laboratory Tests 08/29/21 08/29/21 08/29/21 01:13 01:13 01:13 WBC 40.3 H* RBC 4.31 L Hgb 13.0 L Hct 37.9 L MCV 87.9 MCH 30.2 MCHC 34.3 RDW 14.3 Plt Count 223 MPV 9.9 Neut # (Auto) Not Reportable Lymph # (Auto) Not Reportable Lynn # (Auto) Not Reportable Eos # (Auto) Not Reportable Baso # (Auto) Not Reportable Absolute Nucleated RBC Not Reportable Total Counted 100 Band Neuts % (Manual) 5 Abnorm Lymph % (Manual) 0 Nucleated RBC % Not Reportable Neutrophils # (Manual) 39.9 H Lymphocytes # (Manual) 0.0 L Monocytes # (Manual) 0.4 Eosinophils # (Manual) 0.0 Basophils # (Manual) 0.0 Differential Comment MANUAL DIFFERENTIAL WBC Morphology NORMAL APPEARANCE Platelet Estimate NORMAL (130-450,000) Platelet Morphology NORMAL APPEARANCE RBC Morph Micro Appear NORMAL APPEARANCE PT 13.4 H INR 1.2 APTT 27.4 Sodium 126 L Potassium 3.1 L Chloride 95 L Carbon Dioxide 13 L Anion Gap 18.0 H BUN 38 H Creatinine 1.9 H Estimated GFR (MDRD) 34 L Glucose 415 H Lactic Acid Calcium 8.4 L Total Bilirubin 1.1 H AST 44 H ALT 40 Alkaline Phosphatase 97 Troponin I High Sens B-Natriuretic Peptide Total Protein 6.6 L Albumin 2.8 L Globulin 3.8 Albumin/Globulin Ratio 0.7 L Lipase 25 Urine Color Urine Clarity Urine pH Ur Specific [place] Urine Protein Urine Glucose (UA) Urine Ketones Urine Occult Blood Urine Nitrite Urine Bilirubin Urine Urobilinogen Ur Leukocyte Esterase Urine RBC Urine WBC Ur Squamous Epith Cells Urine Bacteria Ur Microscopic Review Urine Culture Comments Nasal Adenovirus (PCR) Nasal B. parapertussis DNA (PCR) Nasal Coronavir 229E PCR Nasal Coronavir HKU1 PCR Nasal Coronavir NL63 PCR Nasal Coronavir OC43 PCR Nasal Enterovir/Rhinovir PCR Nasal Influenza B PCR Nasal Influenza A PCR Nasal Parainfluen 1 PCR Nasal Parainfluen 2 PCR Nasal Parainfluen 3 PCR Nasal Parainfluen 4 PCR Nasal RSV (PCR) Nasal B.pertussis DNA PCR Nasal C.pneumoniae (PCR) [place] Human Metapneumo PCR Nasal M.pneumoniae (PCR) Nasal SARS-CoV-2 (PCR) 08/29/21 08/29/21 08/29/21 01:13 01:13 01:13 WBC RBC Hgb Hct MCV MCH MCHC RDW Plt Count MPV Neut # (Auto) Lymph # (Auto) Lynn # (Auto) Eos # (Auto) Baso # (Auto) Absolute Nucleated RBC Total Counted Band Neuts % (Manual) Abnorm Lymph % (Manual) Nucleated RBC % Neutrophils # (Manual) Lymphocytes # (Manual) Monocytes # (Manual) Eosinophils # (Manual) Basophils # (Manual) Differential Comment WBC Morphology Platelet Estimate Platelet Morphology RBC Morph Micro Appear PT INR APTT Sodium Potassium Chloride Carbon Dioxide Anion Gap BUN Creatinine Estimated GFR (MDRD) Glucose Lactic Acid 6.9 H* Calcium Total Bilirubin AST ALT Alkaline Phosphatase Troponin I High Sens 60.9 H* B-Natriuretic Peptide 274 H Total Protein Albumin Globulin Albumin/Globulin Ratio Lipase Urine Color Urine Clarity Urine pH Ur Specific [place] Urine Protein Urine Glucose (UA) Urine Ketones Urine Occult Blood Urine Nitrite Urine Bilirubin Urine Urobilinogen Ur Leukocyte Esterase Urine RBC Urine WBC Ur Squamous Epith Cells Urine Bacteria Ur Microscopic Review Urine Culture Comments Nasal Adenovirus (PCR) Nasal B. parapertussis DNA (PCR) Nasal Coronavir 229E PCR Nasal Coronavir HKU1 PCR Nasal Coronavir NL63 PCR Nasal Coronavir OC43 PCR Nasal Enterovir/Rhinovir PCR Nasal Influenza B PCR Nasal Influenza A PCR Nasal Parainfluen 1 PCR Nasal Parainfluen 2 PCR Nasal Parainfluen 3 PCR Nasal Parainfluen 4 PCR Nasal RSV (PCR) Nasal B.pertussis DNA PCR Nasal C.pneumoniae (PCR) [place] Human Metapneumo PCR Nasal M.pneumoniae (PCR) Nasal SARS-CoV-2 (PCR) 08/29/21 08/29/21 01:13 01:14 WBC RBC Hgb Hct MCV MCH MCHC RDW Plt Count MPV Neut # (Auto) Lymph # (Auto) Lynn # (Auto) Eos # (Auto) Baso # (Auto) Absolute Nucleated RBC Total Counted Band Neuts % (Manual) Abnorm Lymph % (Manual) Nucleated RBC % Neutrophils # (Manual) Lymphocytes # (Manual) Monocytes # (Manual) Eosinophils # (Manual) Basophils # (Manual) Differential Comment WBC Morphology Platelet Estimate Platelet Morphology RBC Morph Micro Appear PT INR APTT Sodium Potassium Chloride Carbon Dioxide Anion Gap BUN Creatinine Estimated GFR (MDRD) Glucose Lactic Acid Calcium Total Bilirubin AST ALT Alkaline Phosphatase Troponin I High Sens B-Natriuretic Peptide Total Protein Albumin Globulin Albumin/Globulin Ratio Lipase Urine Color YELLOW Urine Clarity CLOUDY Urine pH 7.0 Ur Specific [place] 1.020 Urine Protein 100 H Urine Glucose (UA) 500 H Urine Ketones NEGATIVE Urine Occult Blood LARGE H Urine Nitrite NEGATIVE Urine Bilirubin NEGATIVE Urine Urobilinogen 0.2 (NORMAL) Ur Leukocyte Esterase MODERATE H Urine RBC 6-10 H Urine WBC >25 H Ur Squamous Epith Cells NONE SEEN Urine Bacteria Many H Ur Microscopic Review INDICATED Urine Culture Comments INDICATED Nasal Adenovirus (PCR) NOT DETECTED Nasal B. parapertussis DNA (PCR) NOT DETECTED Nasal Coronavir 229E PCR NOT DETECTED Nasal Coronavir HKU1 PCR NOT DETECTED Nasal Coronavir NL63 PCR NOT DETECTED Nasal Coronavir OC43 PCR NOT DETECTED Nasal Enterovir/Rhinovir PCR NOT DETECTED Nasal Influenza B PCR NOT DETECTED Nasal Influenza A PCR NOT DETECTED Nasal Parainfluen 1 PCR NOT DETECTED Nasal Parainfluen 2 PCR NOT DETECTED Nasal Parainfluen 3 PCR NOT DETECTED Nasal Parainfluen 4 PCR NOT DETECTED Nasal RSV (PCR) NOT DETECTED Nasal B.pertussis DNA PCR NOT DETECTED Nasal C.pneumoniae (PCR) NOT DETECTED [place] Human Metapneumo PCR NOT DETECTED Nasal M.pneumoniae (PCR) NOT DETECTED Nasal SARS-CoV-2 (PCR) NOT DETECTED - Rads (name of study) chest xray Radiology: Prelim report reviewed, See rad report CT A/P without contrast Radiology: Prelim report reviewed, See rad report PD MEDICAL DECISION MAKING - ED course Complexity details: reviewed old records, reviewed results, re-evaluated patient, considered differential, d/w patient, d/w family ED course: BIBA for dyspnea and hypoxia with improvement en route with EMS interventions (albuterol/atrovent nebs, IV solu-medrol, high-flow NRB oxygen), and although he arrives to ED with mild/moderate respiratory distress, he maintains adequate pulse ox and had rapidly decreasing respiratory distress early in ED stay. He was also noted to be hypotensive in field, SBP in 60s. This was not noted until late in his transport to ED and thus no interventions such as IV fluids were given en route. He is noted to have repeated readings in ED of low 80s-low 90s SBP with DBP ranging from 30s-60s even as IV fluids are being given as one liter IV boluls (normal saline). His blood tests were returning with very concerning results such as lactate 6.9 and WBC 40K, and thus he is started on sepsis protocol with cultures drawn, 30ml/kg fluid bolus ordered (initial order was 1 liter NS but this was before lab tests were returning as noted), triple- antibiotics for broad-spectrum coverage, and central line placed (anesthesia consulted and graciously came to ED and placed right IJ CVC). Patient was afebrile during ED stay. His blood pressures fluctuated between hypotensive readings and marginally normotensive readings. His dyspnea resolved early in stay and did not recur, and his supplemental oxygen was titrated down accordingly. Patient accepted to [facility] hospitalist service. - Consults Consults: Consulted (name) (Dr. Alfonso, anesthesia), Request sr risk management consultant evaluate patient (for central line placement) - Critical Care Time(min): 50 Time Includes: Direct patient care, Review records, Reassess patient, Document care, Coordinate care, Medical consult, Family consult for tx dec, See progress note Data interpretation: Labs, Pulse ox, CXR, See progress note Procedures included in critical care time: See progress note Procedures excluded from critical care time: Central IV (central line placed by anesthesia), EKG, See progress note - Sepsis Event Sepsis Onset Date: 08/29/21 Sepsis Onset Time: 02:00 Current Stage of Sepsis: Septic shock Initial Hypotension: SBP less than 90 mmHg Persistent Hypotension: SBP less than 90 mmHg Possible source of Sepsis: Genitourinary Mental/Cognitive Status: Alert/Oriented X3 Capillary refill: Less than 2 seconds Peripheral Pulse Strength: 2+ Slightly Diminished Departure - Departure Disposition: 66 [facility] DC/Xfer Clinical Impression: COPD exacerbation Sepsis Qualifiers: Sepsis type: sepsis due to unspecified organism Sepsis acute organ dysfunction status: without acute organ dysfunction Qualified Code(s): A41.9 - Sepsis, unspecified organism Condition: Fair Discharge Date/Time: 08/29/21 09:01
[2021-08-29] MEDS ORDERED: SODIUM CHLORIDE 0.9% 1,000 ML IV STA (01:09)
[2021-08-29 01:23] LABS: BASOPHILS % (AUTO) 0.2 %; HCT - HEMATOCRIT 37.9 % (42.0-52.0); LYMPHOCYTES % (AUTO) 3.1 %; MEAN CORPUSCULAR HEMOGLOBIN 30.2 pg (27.0-31.0); MEAN CORPUSCULAR HGB CONC 34.3 g/dL (32.0-36.0); MEAN CORPUSCULAR VOLUME 87.9 fL (80.0-94.0); MEAN PLATELET VOLUME 9.9 fL (7.4-11.4); MONOCYTES % (AUTO) 3.8 %; NEUTROPHILS % (AUTO) 90.9 %; PLT - PLATELET COUNT 223 10^3/uL (130-450); RED BLOOD COUNT 4.31 10^6/uL (4.70-6.10); RED CELL DISTRIBUTION WIDTH 14.3 % (12.0-15.0)
[2021-08-29 01:29] LABS: INR 1.2 (0.8-1.2); PT - PROTHROMBIN TIME 13.4 secs (9.9-12.6)
[2021-08-29 01:36] LABS: BILIRUBIN,URINE NEGATIVE (NEGATIVE); GLUCOSE, URINE (UA) 500 mg/dL (NEGATIVE); KETONES,URINE (UA) NEGATIVE (NEGATIVE); LEUKOCYTE ESTERASE, URINE MODERATE (NEGATIVE); NITRITE,URINE NEGATIVE (NEGATIVE); OCCULT BLOOD,URINE LARGE (NEGATIVE); PROTEIN,URINE 100 mg/dL (NEGATIVE); UROBILINOGEN,URINE 0.2 (NORMAL) E.U./dL (NORMAL)
[2021-08-29 01:38] LABS: PARTIAL THROMBOPLASTIN TIME 27.4 secs (24.9-33.3)
[2021-08-29 01:41] LABS: ALBUMIN 2.8 g/dL (3.2-5.5); ALBUMIN/GLOBULIN RATIO 0.7 (1.0-2.2); BILIRUBIN,TOTAL 1.1 mg/dL (0.2-1.0); CALCIUM 8.4 mg/dL (8.5-10.3); CREATININE 1.9 mg/dL (0.6-1.2); POTASSIUM 3.1 mmol/L (3.5-5.0); TOTAL PROTEIN 6.6 g/dL (6.7-8.2)
[2021-08-29 01:42] LABS: ABNORMAL LYMPHS % (MANUAL) 0 %; LYMPHOCYTES % (MANUAL) 0 %; WHITE BLOOD COUNT 40.3 x10^3/uL (4.8-10.8)
[2021-08-29 01:43] LABS: CLARITY,URINE CLOUDY (CLEAR)
[2021-08-29] MEDS ORDERED: SODIUM CHLORIDE 0.9% IV STA (01:55)
[2021-08-29] MEDS ORDERED: CEFEPIME 2 GM in SODIUM CHLORIDE 0.9% MINIBAG 100 ML IV STA (01:56)
[2021-08-29] MEDS ORDERED: metroNIDAZOLE 500 MG/100 ML 500 MG/100 ML BAG IV STA (01:56)
[2021-08-29] MEDS ORDERED: VANCOMYCIN INJ 1.75 GM in SODIUM CHLORIDE 0.9% 500 ML IV STA (01:56)
[2021-08-29 01:57] LABS: BAND NEUTROPHILS % (MANUAL) 5 %; DIFFERENTIAL COMMENT MANUAL DIFFERENTIAL; MONOCYTES # (MANUAL) 0.4 10^3/uL (0.0-1.0); NEUTROPHILS # (MANUAL) 39.9 10^3/uL (1.5-6.6); PLATELET ESTIMATE, MANUAL NORMAL (130-450,000) (NORMAL); PLATELET MORPHOLOGY NORMAL APPEARANCE (NORMAL); RBC MORPHOLOGY (MULTIPLE) NORMAL APPEARANCE (NORMAL); WBC MORPHOLOGY (MULTIPLE) NORMAL APPEARANCE (NORMAL)
[2021-08-29 01:57] LABS: WBC,URINE >25 /HPF (0-3)
[2021-08-29 01:58] LABS: BACTERIA,URINE Many /HPF (None Seen); SQUAMOUS EPITHELIAL CELL,UR NONE SEEN (<= Few)
--- NOTE | 2021-08-29 02:00 | XRAY Report ---
PROCEDURE: Chest 1 View X-Ray INDICATIONS: dyspnea TECHNIQUE: One view of the chest was acquired. COMPARISON: Chest single view 05/15/2019. FINDINGS: Surgical changes and devices: Rectangular surgical plate noted over the midline of the chest superimp osed on the area of the sternum and thoracic spine more posteriorly. This was previously present. Lungs and pleura: No pleural effusions or pneumothorax. Lungs are abnormal, with a chronic intersti tial prominence that appears more pronounced than on the comparison study, perhaps reflecting mild bradshaw perimposed pulmonary edema.. Mediastinum: Mediastinal contours appear normal. Heart size is at the upper limits of normal. Bones and chest wall: No suspicious bony lesions. Overlying soft tissues appear unremarkable. IMPRESSION: Suspect mild pulmonary edema superimposed on chronic interstitial prominence. No focal pneumonia birgit dLindsey Reviewed by: Jason Salvador MD on 08/29/2021 1:59 AM PDT Approved by: Jason Salvador MD on 08/29/2021 1:59 AM PDT Station ID: [id number]
[2021-08-29 02:16] LABS: B. PARAPERTUSSIS- RESP PCR PAN NOT DETECTED; B. PERTUSSIS- RESP PCR PANEL NOT DETECTED; C. PNEUMONIAE- RESP PCR PANEL NOT DETECTED; CORONAVIRUS 229E-RESP PCR NOT DETECTED; CORONAVIRUS HKU1-RESP PCR NOT DETECTED; CORONAVIRUS NL63-RESP PCR NOT DETECTED; CORONAVIRUS OC43-RESP PCR NOT DETECTED; HUMAN METAPNEUMOVIRUS NOT DETECTED; INFLUENZA A- RESP PCR PANEL NOT DETECTED; INFLUENZA B - RESP PCR PANEL NOT DETECTED; M. PNEUMONIAE- RESP PCR PANEL NOT DETECTED; PARAINFLUENZA VIRUS 1 NOT DETECTED; PARAINFLUENZA VIRUS 2 NOT DETECTED; PARAINFLUENZA VIRUS 3 NOT DETECTED; PARAINFLUENZA VIRUS 4 NOT DETECTED; RHINOVIRUS/ENTEROVIRUS NOT DETECTED; RSV- RESP PCR PANEL NOT DETECTED; SARS-CoV-2 -RESP PCR PANEL NOT DETECTED
[2021-08-29] MEDS ORDERED: VANCOMYCIN 1 GM VIAL ONE (02:50)
--- NOTE | 2021-08-29 03:52 | ANESTHESIA PROCEDURE NOTE ---
Anesth Central Line Template - Central Line Central Line Preparation: Consent Obtained, Time out completed, Ultrasound used, Sterile prep and drape Central line location: Right IJ Central line type: Triple lumen Central line catheter tip site resides: Superior vena cava (SVC) Central line aftercare: Secured, Placement confirmed, No pneumothorax, No complications, Bundle checklist complete, Pt tolerated well (First attempt resulted in arterial puncture, immediately recognized, needle withdrawn, manual pressure held for 5 min, no hematoma noted. CVL placed in 2nd attempt with no complications. US used to verify line in IJ, monometer verification as well. Pt tolerated procedure well. CXR to confirm.)
[2021-08-29] MEDS ORDERED: ONDANSETRON ODT 4 MG TABLET TL PRN (06:32)
[2021-08-29] MEDS ORDERED: ALBUTEROL NEB 2.5 MG/3 ML INH PRN (06:32)
[2021-08-29] MEDS ORDERED: ACETAMINOPHEN 325 MG TABLET PO PRN (06:32)
[2021-08-29] MEDS ORDERED: ONDANSETRON 4 MG/2 ML VIAL IVP PRN (06:32)
[2021-08-29 06:57] LABS: BASOPHILS % (AUTO) 0.2 %; HCT - HEMATOCRIT 33.1 % (42.0-52.0); LYMPHOCYTES % (AUTO) 2.1 %; MEAN CORPUSCULAR HEMOGLOBIN 30.1 pg (27.0-31.0); MEAN CORPUSCULAR HGB CONC 33.2 g/dL (32.0-36.0); MEAN CORPUSCULAR VOLUME 90.4 fL (80.0-94.0); MEAN PLATELET VOLUME 10.2 fL (7.4-11.4); MONOCYTES % (AUTO) 1.8 %; NEUTROPHILS % (AUTO) 92.8 %; PLT - PLATELET COUNT 171 10^3/uL (130-450); RED BLOOD COUNT 3.66 10^6/uL (4.70-6.10); RED CELL DISTRIBUTION WIDTH 14.5 % (12.0-15.0)
[2021-08-29 07:08] LABS: CALCIUM 7.5 mg/dL (8.5-10.3); CREATININE 1.9 mg/dL (0.6-1.2); PHOSPHORUS 4.3 mg/dL (2.5-4.6); POTASSIUM 3.3 mmol/L (3.5-5.0)
[2021-08-29 07:10] LABS: LACTIC ACID, VENOUS 4.7 mmol/L (0.5-2.2)
[2021-08-29 07:11] LABS: WHITE BLOOD COUNT 40.9 x10^3/uL (4.8-10.8)
[2021-08-29] MEDS ORDERED: POTASSIUM CHLORIDE 20 MEQ TABLET PO STA (07:20)
[2021-08-29 07:27] LABS: CRP - C-REACTIVE PROTEIN 24.5 mg/dL (0-1.0); MAGNESIUM 1.6 mg/dL (1.7-2.8)
[2021-08-29] MEDS ORDERED: MAGNESIUM OXIDE 400 MG TABLET PO SCH (08:00)
[2021-08-29] MEDS ORDERED: INSULIN ASPART 300 UNIT/3 ML PEN SUBQ SCH ×2 (08:00)
[2021-08-29 08:45] LABS: ABNORMAL LYMPHS % (MANUAL) 0 %; BAND NEUTROPHILS % (MANUAL) 14 %; LYMPHOCYTES # (MANUAL) 0.8 10^3/uL (1.5-3.5); LYMPHOCYTES % (MANUAL) 2 %; MONOCYTES # (MANUAL) 1.2 10^3/uL (0.0-1.0); NEUTROPHILS # (MANUAL) 38.9 10^3/uL (1.5-6.6); PLATELET MORPHOLOGY NORMAL APPEARANCE (NORMAL); RBC MORPHOLOGY (MULTIPLE) NORMAL APPEARANCE (NORMAL)
[2021-08-29 08:46] LABS: DIFFERENTIAL COMMENT MANUAL DIFFERENTIAL; PLATELET ESTIMATE, MANUAL NORMAL (130-450,000) (NORMAL); WBC MORPHOLOGY (MULTIPLE) NORMAL APPEARANCE (NORMAL)
[2021-08-29] MEDS ORDERED: INSULIN GLARGINE 300 UNIT/3 ML PEN SUBQ SCH (09:00)
[2021-08-29] MEDS ORDERED: INSULIN REGULAR HUMAN 100 UNIT in SODIUM CHLORIDE 0.9% 100ML 99 ML IV ONE ×2 (09:00→19:05)
[2021-08-29] MEDS: LACTATED RINGERS 1,000 ML IV SCH ×3 (09:15→23:00)
[2021-08-29] MEDS: metroNIDAZOLE 500 MG/100 ML 500 MG/100 ML BAG IV SCH ×3 (09:28→22:00)
--- NOTE | 2021-08-29 09:52 | CT Report ---
PROCEDURE: Abdomen/Pelvis WO INDICATIONS: abd. pain, septic TECHNIQUE: Noncontrast 5 mm thick sections acquired from the diaphragms to the symphysis. 5 mm coronal and sagi ttal reformats were then performed. For radiation dose reduction, the following was used: automated exposure control, adjustment of mA and/or kV according to patient size. COMPARISON: Abdomen pelvis CT, 03/10/2015. Correlation is also made with chest radiograph, 08/29/2021. FINDINGS: Image quality: Excellent. ABDOMEN: Lung bases: Lung bases are clear. Heart size is normal. Solid organs: Diffuse fatty liver infiltration can be seen. No focal liver lesion is seen. The sple en demonstrates normal size and demonstrates no suspicious lesions. Gallbladder wall does not appear thickened. Pancreas is normal in contours. No adrenal nodules. Kidneys are normal in size, with out hydronephrosis or nephrolithiasis. Peritoneum and bowel: Unenhanced bowel loops demonstrate normal wall thickness and caliber. No free fluid or air. Mild distal colonic diverticulosis is seen, without findings of active diverticulitis . Nodes and vessels: No retroperitoneal or mesenteric adenopathy by size criteria. The distal aorta is mildly aneurysmal, measuring 4.3 cm AP. Likely mural hematoma is seen anteriorly. In 2014, this area of the aorta measured up to 2.7 cm AP. Atherosclerotic calcification is seen. The IVC demonstrates n ormal caliber. Miscellaneous: Herniated small bowel can be seen along the right lower quadrant urostomy, without fin dings of obstruction. A mild fat-containing periumbilical hernia is seen. PELVIS: Genitourinary: Prostatectomy and cystectomy can be seen. There is a right lower quadrant urostomy. Miscellaneous: No inguinal adenopathy. Mild bilateral fat-containing inguinal hernias are seen, righ t worse than left. Bones: No suspicious bony lesions. No vertebral body compression fractures. Age-appropriate degene rative changes are seen. IMPRESSION: No imaging explanation is found for the patient's presenting symptoms. Prostatectomy and cystectomy, with a right lower quadrant urostomy. Nondilated loops of small bowel a re seen herniated along the urostomy site. 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 Mural hematoma is seen anteriorly. Incidental note is made of: Fatty liver infiltration Mild bilateral fat-containing periumbilical hernia Bilateral fat-containing inguinal hernias Note: No significant discrepancy from the preliminary report. Reviewed by: Lexx Chavez MD on 08/29/2021 8:51 AM JESSICA Approved by: Lexx Chavez MD on 08/29/2021 8:51 AM JESSICA Station ID: [id number]
--- NOTE | 2021-08-29 09:56 | XRAY Report ---
PROCEDURE: Chest for Line Placement INDICATIONS: Central line placement TECHNIQUE: One view of the chest was acquired. COMPARISON: Earlier in the day, 08/29/2021. 05/15/2019 FINDINGS: Surgical changes and devices: A right-sided central line is seen, with the tip overlying the superior to mid superior vena cava, 4 to 5 cm above the cavoatrial junction. There is a stable metallic device overlying the superior mediastinum. Lungs and pleura: No pleural effusions or pneumothorax. No focal infiltrates are seen. Generalized interstitial prominence is seen. Mediastinum: Mediastinal contours appear normal. Heart size is normal. Bones and chest wall: No suspicious bony lesions. Age-appropriate degenerative changes are seen. Overlying soft tissues appear unremarkable. IMPRESSION: The tip of the right-sided central line overlies the superior to mid superior vena cava. Mild generalized interstitial prominence is seen. Note: No significant discrepancy from the preliminary report. Reviewed by: Lexx Chavez MD on 08/29/2021 8:55 AM JESSICA Approved by: Lexx Chavez MD on 08/29/2021 8:55 AM ORUSMAN Station ID: [id number]
[2021-08-29 10:40] LABS: LACTIC ACID, VENOUS 4.9 mmol/L (0.5-2.2)
--- NOTE | 2021-08-29 10:49 | HISTORY & PHYSICAL EXAMINATION ---
Chief Complaint - Chief Complaint Chief Complaint: Shortness of Breath History of Present Illness - Admitted From Admitted From:: Home - History Obtained From Records Reviewed: EMAR History obtained from: patient, patient's son, EMAR - History of Present Illness HPI Comment/Other: Patient is a 81 year old male with hx of COPD, asthma, prostate cancer, bladdder cancer, and chronic back pain. Pt presented to the ED earlier this AM for increasing shortness of breath. Per patient and patient's son, he has been increasingly dyspneic and has been needing to use home oxygen more frequently. Typically patient is able address shortness of breath with albuterol inhaler, but last night he was unable to get it under control. Pt does not report any chills, fevers, or cough. Pt does report having increased weakness, malaise, and weight gain. In the ED, patient was found to have an leukocytosis, elevated lactic acid, neutrophilia, hyponatremia, hypokalemia, anion gap of 18, hypocalcemia, elevated CRP, elevated glucose and urine positive for leukocytes, bacteria. Negative COVID. Pt was also tachycardic, and hypotensive. Pt was placed on 5 liters of oxygen via NC. History - Past Medical History Cardiovascular: reports: None, Arrhythmia, Other (Chronic RBBB) Respiratory: reports: Asthma, COPD, Shortness of breath Neuro: reports: Headaches, Other (Pt does not report chronic headaches at this time ) Endocrine/Autoimmune: reports: None GI: reports: None : reports: Other (Pt has a urostomy in place) HEENT: reports: None Psych: reports: None Musculoskeletal: reports: Osteoarthritis, Chronic back pain Derm: reports: Psoriasis MRSA Hx?: No - Past Surgical History General: reports: Colonoscopy Ortho: reports: Arthroscopic surgery, Spine surgery, Other (Sternum repair) - Family & Social History Family History: Mother: (brother from "old age", mother from unspecified heart issues), Father: , Mental Illness (suicide), Brother: Living arrangement: At home Living Situation: With caregiver(s) Social History Notes: Pt has lived on [facility] for the past 20 years. 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 Pt has living children all are boys. Pt's daughter when she was 16 years old. Pt currently lives with son and son's fiance. - Substance History Use: Uses substance without health or social issues: Tobacco (Pt smoked more than a pack a day for 67 years), Alcohol (One bottle of liquor a year) Use Issues: uncomplicated Abuse: Recurrent use of substance despite neg consequences: NONE Dependence: Experiences withdrawal or developed tolerances: NONE Tobacco Details: Cigarettes, Occupational Exposure - POLST Patient has POLST: No POLST Status: DNR (Pt expressed desire to not be intubated and reports not wanting to live another year) Meds/Allgy - Home Medications Home Medications: Ambulatory Orders Medication Instructions Recorded Confirmed Hydrocodone/Acetaminophen 1 tab PO 5XD PRN MDD 4000mg 11/08/17 08/29/21 [Hydrocodone-Acetamin 10-325 mg] aceteminophen Montelukast [Singulair] 10 mg PO QPM #30 tablet 05/19/19 08/29/21 Albuterol Sulfate [Proair 2 puffs INH Q4H PRN 08/29/21 08/29/21 Respiclick] Gabapentin [Neurontin] 300 mg PO BID 08/29/21 08/29/21 Ipratropium/Albuterol [Duoneb] 3 ml INH BID 08/29/21 08/29/21 Torsemide 10 - 20 mg PO DAILY 08/29/21 08/29/21 predniSONE [Prednisone] 10 mg PO DAILYWM 08/29/21 08/29/21 - Allergies Allergies/Adverse Reactions: Allergies Allergy/AdvReac Type Severity Reaction Status Date / Time Penicillins Allergy Unknown Verified 08/29/21 01:18 Review of Systems - Constitutional Constitutional: reports: Fatigue, Malaise, Poor appetite, Weight gain (Pt reports 160 to 210lb weight gain) - Eyes Eyes: reports: Corrective lenses - Ears, Nose & Throat Ears, Nose & Throat: reports: 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 Exam - Vital Signs Reviewed Vital Signs: Yes Vital Signs: Vital Signs x48h Pulse Resp BP Pulse Ox 08/29/21 08:30 103 H 14 98/56 L 93 08/29/21 08:11 103 H 13 95/64 92 08/29/21 08:06 103 H 14 95/64 94 08/29/21 07:30 105 H 14 100/61 93 08/29/21 07:00 103 H 14 90/55 L 95 08/29/21 06:30 104 H 17 93/60 94 08/29/21 06:00 103 H 17 85/57 L 93 08/29/21 05:57 103 H 15 89/56 L 94 08/29/21 05:02 109 H 22 99/56 L 91 L 08/29/21 04:41 11 L 17 93/54 L 91 L 08/29/21 04:01 109 H 15 91/55 L 91 L 08/29/21 03:59 110 H 15 97/50 L 91 L 08/29/21 02:55 112 H 17 97 - Physical Exam General Appearance: positive: No acute distress Eyes Bilateral: positive: Normal inspection, PERRL, No lid inflammation, No scleral icterus ENT: positive: ENT inspection nml Neck: positive: Nml inspection, Thyroid nml, Trachea midline Respiratory: positive: No respiratory distress, Rhonchi, Other (Lungs are tight, pt is not moving much air) Cardiovascular: positive: No murmur, No gallop Peripheral Pulses: positive: 2+ Abdomen: positive: Tenderness, Other (Hypoactive bowel sounds, distended, tender) Back: positive: Nml inspection Skin: positive: Other (psoriasis on left lower extremity; Bruising on upper extremities bilaterally from recent mechanial fall (transfer from walking to powerchair)) Extremities: positive: Pedal edema Neurologic/Psychiatric: positive: Oriented x3, Mood/affect nml, Weakness Sepsis Event Note (H) - Evaluation Current Stage of Sepsis: Sepsis Possible source of Sepsis: positive: Genitourinary Sepsis Associated Organ Dysfunction: Kidney - Sepsis Criteria Sepsis Criteria: Recorded Heart Rate greater than 90 bpm, WBC count greater than 10% bands, WBC count greater than 12,000 or less than 4000, SBP less than 90 mmHg, Metabolic: lactate > 2 mmol/L Conclusion/Plan - Problem List (1) Septic shock Conclusion/Plan: Pt has been afebrile. In the ED he was found to have an leukocytosis, elevated lactic acid, neutrophilia, hyponatremia, anion gap of 18, elevated CRP, elevated glucose and urine positive for leukocytes, bacteria. Pt was also tachycardic and hypotensive. Left shift in neutrophils. After IV fluids, IV fungals, IV antibiotics. Anion gap has improved to 13. Lactate has improved from 6.9 to 5.6. Pt is no longer hypotensive with a BP of 116/70. HR has improved to 104 BPM. Septic shock has mostly resolved although pt is still septic. Still investigating source of infection. Plan: 1. Continue administration of flagyl, cefepime, and vancomycin 2. Pending urine and blood cultures 3. LR infusion at 125 mls/hr (2) Hypoxemia Conclusion/Plan: Pt has been having increased oxygen requirements. At home, patient typically uses 2-3 L of oxygen as needed. At this time, he is on 4 L of oxygen with an O2 saturation of 98%. Pts lung sounds are tight and coarse, with not much air movement. Plan: 1. Wean off oxygen as oxygen requirements decrease with improvement to sepsis 2. Nebulizers with RT to maintain secretions and bronchodilate. (3) Hyponatremia Conclusion/Plan: Pt is hyponatremic at 128 from labs drawn at 0649 on 08/29. This is an improvement from serum sodium ponce at 0113 which was 126. With addressing infection, hopefully sodium will correct Plan: 1. continue IV hydration 2. reassess BMP (4) Diabetes mellitus type 2, uncontrolled, with complications Conclusion/Plan: Pt presents with glucose in the 400s, glucosuria and proteinuria present in addition to an A1C of 11.4 Pt is likely a new onset type II diabetic. Plan: 1. Titrate insulin drip 2. recheck blood sugar 3. monitor BMP for electrolye changes (5) COPD with exacerbation Conclusion/Plan: Pt is on 4L of oxygen at this time with a saturation of 98%. Pt exhibits no increased work of breathing at this time although his lung sounds are minimal as he is not moving air. Plan: 1. Wean off oxygen 2. nebulizers with RT 3. continue singulair (6) Senescence Conclusion/Plan: Pt is currently DNR and has verbally expressed his overall deteriorating state of health. Plan: 1. Conversation around goals of care - Lab Results Lab results reviewed: Yes Fish Bones: 08/29/21 06:49 08/29/21 06:49
--- NOTE | 2021-08-29 12:28 | PHARMACY PROGRESS NOTE ---
- Best Possible Medication History Admit Date and Time: 08/29/21 0632 Processed by: Pharmacy Medication History completed: Yes Patient Interview: Completed Secondary Source(s): Other family member, Pharmacy records, Insurance records As the person ultimately responsible for medication therapy, providers are able to order a medication from an existing home medication list in [facility] via the "Reconcile Routine" prior to Confirmation of that medication by manager sales support. Such practice is discouraged except when the physician, in their clinical judgment, deems that a medical need exists for a medication without regard to previous use.
--- NOTE | 2021-08-29 12:31 | PHARMACY PROGRESS NOTE ---
- Therapy Status Vancomycin regimen day #: 1 Therapy status: Awaiting steady state Basis for treatment: Empirical Treatment indication: SEPSIS Trough goal: 15-20 Concurrent antibiotics: CEFEPIME, METRONIDAZOLE - BAIRON Risk Risk level for Acute Kidney Injury: High Acute Kidney Injury risk factors: Goal trough >15, Admission to ICU, Acute hypotensive event, Sepsis - Monitoring and Recommendation Clinical response to treatment: I&O Previous 24 hours 08/27/21 08/28/21 08/29/21 23:59 23:59 23:59 Intake Total 4448.78 Output Total 1000 Balance 3448.78 Lab Results 08/29/21 08/29/21 06:49 01:13 BUN 38 H 38 H Creatinine 1.9 H 1.9 H Estimated GFR (MDRD) 34 L 34 L Cultures 08/29/21 01:14 Urine,Random Urine Culture - Preliminary Monitoring plan: Daily serum creatinine, Draw trough early Next trough due prior to maintenance dose #: 3 Next trough due (date/time): 08/31 @1800 Areas for additional monitoring: IV to PO when appropriate, Therapy de- escalation based on culture results, Acute Kidney Injury Pharmacy recommendation: Continue current regime
[2021-08-29] MEDS: CEFEPIME 2 GM in SODIUM CHLORIDE 0.9% MINIBAG 100 ML IV SCH (13:15)
[2021-08-29 13:43] LABS: ESTIMATED AVERAGE GLUCOSE 280 mg/dL (70-100); HEMOGLOBIN A1c% 11.4 % (4.27-6.07)
[2021-08-29 13:46] LABS: LACTIC ACID, VENOUS 5.6 mmol/L (0.5-2.2)
[2021-08-29] MEDS: HEPARIN 5,000 UNIT/ML VIAL SUBQ SCH ×2 (14:23→21:15)
[2021-08-29] MEDS: SODIUM CHLORIDE FLUSH 0.9% 10 ML SYRINGE IVP SCH ×2 (15:06→19:58)
[2021-08-29] MEDS: HYDROcod/ACETAM 10 MG/325 MG TABLET PO PRN ×2 (15:30→20:18)
[2021-08-29] MEDS: predniSONE 10 MG TABLET PO SCH (15:31)
[2021-08-29 16:44] LABS: LACTIC ACID, VENOUS 3.2 mmol/L (0.5-2.2)
[2021-08-29] MEDS ORDERED: VANCOMYCIN INJ 1 GM, VANCOMYCIN INJ 250 MG in SODIUM CHLORIDE 0.9% 250 ML IV SCH (19:00)
[2021-08-29] MEDS: INSULIN GLARGINE 300 UNIT/3 ML PEN SUBQ SCH ×2 (19:42→21:11)
[2021-08-29] MEDS: SODIUM CHLORIDE FLUSH 0.9% 10 ML SYRINGE IVP PRN (19:58)
[2021-08-29] MEDS ORDERED: SODIUM CHLORIDE 0.9% 500 ML IV PRN (20:08)
[2021-08-29 20:19] LABS: LACTIC ACID, VENOUS 2.4 mmol/L (0.5-2.2)
[2021-08-29] MEDS: MONTELUKAST 10 MG TABLET PO SCH (21:11)
[2021-08-29] MEDS: GABAPENTIN 300 MG CAPSULE PO SCH (21:11)
[2021-08-29] MEDS: INSULIN ASPART 300 UNIT/3 ML PEN SUBQ SCH (21:12)
[2021-08-30] MEDS: CEFEPIME 2 GM in SODIUM CHLORIDE 0.9% MINIBAG 100 ML IV SCH ×2 (00:57→12:53)
[2021-08-30] MEDS: HYDROcod/ACETAM 10 MG/325 MG TABLET PO PRN ×3 (01:37→19:18)
[2021-08-30] MEDS: LACTATED RINGERS 1,000 ML IV SCH ×4 (02:01→23:45)
[2021-08-30] MEDS: SODIUM CHLORIDE FLUSH 0.9% 10 ML SYRINGE IVP SCH ×3 (02:17→18:56)
[2021-08-30 05:25] LABS: CALCIUM, IONIZED 1.17 mmol/L (1.15-1.33); VBG PH 7.111 (7.31-7.41)
[2021-08-30 05:26] LABS: BASOPHILS % (AUTO) 0.2 %; HCT - HEMATOCRIT 33.6 % (42.0-52.0); HGB - HEMOGLOBIN 11.3 g/dL (14.0-18.0); MEAN CORPUSCULAR HEMOGLOBIN 30.5 pg (27.0-31.0); MEAN CORPUSCULAR HGB CONC 33.6 g/dL (32.0-36.0); MEAN CORPUSCULAR VOLUME 90.6 fL (80.0-94.0); MEAN PLATELET VOLUME 9.9 fL (7.4-11.4); MONOCYTES % (AUTO) 2.9 %; NEUTROPHILS % (AUTO) 91.8 %; PLT - PLATELET COUNT 164 10^3/uL (130-450); RED BLOOD COUNT 3.71 10^6/uL (4.70-6.10); RED CELL DISTRIBUTION WIDTH 14.7 % (12.0-15.0); WHITE BLOOD COUNT 33.8 x10^3/uL (4.8-10.8)
[2021-08-30 05:27] LABS: ABNORMAL LYMPHS % (MANUAL) 0 %
[2021-08-30 05:38] LABS: CREATININE 1.7 mg/dL (0.6-1.2); MAGNESIUM 1.8 mg/dL (1.7-2.8); PHOSPHORUS 4.5 mg/dL (2.5-4.6); POTASSIUM 4.1 mmol/L (3.5-5.0)
[2021-08-30] MEDS: metroNIDAZOLE 500 MG/100 ML 500 MG/100 ML BAG IV SCH (05:44)
[2021-08-30 05:49] LABS: BAND NEUTROPHILS % (MANUAL) 10 %; DIFFERENTIAL COMMENT MANUAL DIFFERENTIAL; LYMPHOCYTES # (MANUAL) 0.7 10^3/uL (1.5-3.5); LYMPHOCYTES % (MANUAL) 2 %; NEUTROPHILS # (MANUAL) 32.1 10^3/uL (1.5-6.6); PLATELET ESTIMATE, MANUAL NORMAL (130-450,000) (NORMAL); PLATELET MORPHOLOGY NORMAL APPEARANCE (NORMAL); RBC MORPHOLOGY (MULTIPLE) NORMAL APPEARANCE (NORMAL); WBC MORPHOLOGY (MULTIPLE) NORMAL APPEARANCE (NORMAL)
[2021-08-30] MEDS: predniSONE 10 MG TABLET PO SCH (07:57)
[2021-08-30] MEDS: MAGNESIUM OXIDE 400 MG TABLET PO SCH ×2 (07:57→17:19)
[2021-08-30] MEDS: HEPARIN 5,000 UNIT/ML VIAL SUBQ SCH ×2 (08:29→21:06)
[2021-08-30] MEDS: INSULIN ASPART 300 UNIT/3 ML PEN SUBQ SCH ×6 (08:30→21:06)
[2021-08-30] MEDS: GABAPENTIN 300 MG CAPSULE PO SCH ×2 (08:31→21:03)
[2021-08-30] MEDS: IPRATROPIUM/ALBUTEROL 3 ML NEB INH SCH ×3 (11:08→21:30)
[2021-08-30] MEDS: INSULIN GLARGINE 300 UNIT/3 ML PEN SUBQ SCH ×2 (11:48→21:05)
--- NOTE | 2021-08-30 18:04 | PROVIDER PROGRESS NOTE ---
Subjective - Prog Note Date Prog Note Date: 08/30/21 Prog Note Time: 18:00 Objective - Vital Signs/Intake & Output Reviewed Vital Signs: Yes Vital Signs: Vital Signs x48h Temp Pulse Pulse Resp BP Pulse Ox 08/30/21 17:18 95 13 138/85 H 97 08/30/21 16:06 36.4 C L 08/30/21 16:00 101 H 15 131/74 H 96 08/30/21 15:00 92 10 L 102/63 97 08/30/21 14:00 98 11 L 115/64 97 08/30/21 13:00 103 H 12 120/62 96 08/30/21 12:00 36.4 C L 98 17 109/62 93 08/30/21 11:11 90 16 08/30/21 11:00 91 12 105/63 92 Intake & Output: Intake & Output 08/27/21 08/28/21 08/29/21 08/30/21 23:59 23:59 23:59 23:59 Intake Total 5805.030 3194.167 Output Total 1835 670 Balance 3970.030 2524.167 - Objective General Appearance: positive: No acute distress, Lethargic (Affect is muted today in comparison to the tearfulness he expressed yesterday evening) Eyes Bilateral: positive: PERRL, EOMI ENT: positive: No signs of dehydration Neck: positive: No JVD. negative: Stiff neck Respiratory: positive: No respiratory distress, Wheezes. negative: Rales, Rhonchi Cardiovascular: positive: Regular rate & rhythm. negative: Gallop/S4, Friction rub Abdomen: positive: Non-tender, No organomegaly, Nml bowel sounds, Other (Ureterostomy site is pink, intact, No skin breakdown) Skin: positive: Warm, Dry Extremities: positive: Full ROM, No pedal edema Neurologic/Psychiatric: positive: Oriented x3, CN's nml (2-12), Motor nml, Depressed mood/affect - Lab Results Fish Bones: 08/30/21 05:15 08/30/21 05:15 Other Labs: Lab Results x24hrs 08/30/21 08/30/21 08/30/21 Range/Units 05:15 05:15 05:15 WBC 33.8 H (4.8-10.8) x10^3/uL RBC 3.71 L (4.70-6.10) 10^6/uL Hgb 11.3 L (14.0-18.0) g/dL Hct 33.6 L (42.0-52.0) % MCV 90.6 (80.0-94.0) fL MCH 30.5 (27.0-31.0) pg MCHC 33.6 (32.0-36.0) g/dL RDW 14.7 (12.0-15.0) % Plt Count 164 (130-450) 10^3/uL MPV 9.9 (7.4-11.4) fL Neut # (Auto) Not Reportable Lymph # (Auto) Not Reportable [place] # (Auto) Not Reportable Eos # (Auto) Not Reportable Baso # (Auto) Not Reportable Absolute Nucleated RBC Not Reportable Total Counted 100 Band Neuts % (Manual) 10 (0 - 10) % Abnorm Lymph % (Manual) 0 % Nucleated RBC % Not Reportable Neutrophils # (Manual) 32.1 H (1.5-6.6) 10^3/uL Lymphocytes # (Manual) 0.7 L (1.5-3.5) 10^3/uL Monocytes # (Manual) 1.0 (0.0-1.0) 10^3/uL Eosinophils # (Manual) 0.0 (0-0.7) 10^3/uL Basophils # (Manual) 0.0 (0-0.1) 10^3/uL Differential Comment MANUAL DIFFERENTIAL WBC Morphology NORMAL APPEARANCE (NORMAL) Platelet Estimate NORMAL (130-450,000) (NORMAL) Platelet Morphology NORMAL APPEARANCE (NORMAL) RBC Morph Micro Appear NORMAL APPEARANCE (NORMAL) VBG pH 7.111 L (7.31-7.41) Ionized Calcium 1.17 (1.15-1.33) mmol/L Sodium 131 L (135-145) mmol/L Potassium 4.1 (3.5-5.0) mmol/L Chloride 105 (101-111) mmol/L Carbon Dioxide 16 L (21-32) mmol/L Anion Gap 10.0 (6-13) BUN 46 H (6-20) mg/dL Creatinine 1.7 H (0.6-1.2) mg/dL Estimated GFR (MDRD) 39 L (>89) Glucose 242 H (70-100) mg/dL Lactic Acid (0.5-2.2) mmol/L Calcium 8.0 L (8.5-10.3) mg/dL Phosphorus 4.5 (2.5-4.6) mg/dL Magnesium 1.8 (1.7-2.8) mg/dL 08/29/21 08/29/21 Range/Units 22:50 19:59 WBC (4.8-10.8) x10^3/uL RBC (4.70-6.10) 10^6/uL Hgb (14.0-18.0) g/dL Hct (42.0-52.0) % MCV (80.0-94.0) fL MCH (27.0-31.0) pg MCHC (32.0-36.0) g/dL RDW (12.0-15.0) % Plt Count (130-450) 10^3/uL MPV (7.4-11.4) fL Neut # (Auto) Lymph # (Auto) [place] # (Auto) Eos # (Auto) Baso # (Auto) Absolute Nucleated RBC Total Counted Band Neuts % (Manual) (0 - 10) % Abnorm Lymph % (Manual) % Nucleated RBC % Neutrophils # (Manual) (1.5-6.6) 10^3/uL Lymphocytes # (Manual) (1.5-3.5) 10^3/uL Monocytes # (Manual) (0.0-1.0) 10^3/uL Eosinophils # (Manual) (0-0.7) 10^3/uL Basophils # (Manual) (0-0.1) 10^3/uL Differential Comment WBC Morphology (NORMAL) Platelet Estimate (NORMAL) Platelet Morphology (NORMAL) RBC Morph Micro Appear (NORMAL) VBG pH (7.31-7.41) Ionized Calcium (1.15-1.33) mmol/L Sodium (135-145) mmol/L Potassium (3.5-5.0) mmol/L Chloride (101-111) mmol/L Carbon Dioxide (21-32) mmol/L Anion Gap (6-13) BUN (6-20) mg/dL Creatinine (0.6-1.2) mg/dL Estimated GFR (MDRD) (>89) Glucose (70-100) mg/dL Lactic Acid 1.9 2.4 H (0.5-2.2) mmol/L Calcium (8.5-10.3) mg/dL Phosphorus (2.5-4.6) mg/dL Magnesium (1.7-2.8) mg/dL ABX Reporting Has patient been on IV antibiotics over the past 48 hours?: Yes Sepsis Event Note (H) - Evaluation Current Stage of Sepsis: Resolved Possible source of Sepsis: positive: Genitourinary Confirmed Source and Organism (if known) of Sepsis: Klebsiella and E. coli Sepsis Associated Organ Dysfunction: Acute kidney injury, hypotension - Sepsis Criteria Sepsis Criteria: Recorded Heart Rate greater than 90 bpm, WBC count greater than 10% bands, WBC count greater than 12,000 or less than 4000, SBP less than 90 mm Hg, Metabolic: lactate > 2 mmol/L Assessment/Plan - Problem List (1) Septic shock Impression: Resolved. since he was transferred from ED. Continues to be without fever. In the ED he was found to have an leukocytosis, elevated lactic acid, neutrophilia, hyponatremia, anion gap of 18, elevated CRP, elevated glucose and urine positive for leukocytes, bacteria. Pt was also tachycardic and hypotensive. Left shift in neutrophils. After IV fluids, IV fungals, IV antibiotics. His lactic acid started at 4.9 and went up to 5.6. Today it is 1.9. Anion gap started 18 and is normal today at 10. We had initially started Levophed because his pressures were slow but he never needed it. As such we feel that his septic shock is resolved. Criteria for sepsis has resolved. Source is gram-negative bacteremia.His PCR in the blood identified Klebsiella. His cultures were identified is growing E. coli. Plan: Descalate antibiotics to cefepime alone. Does not need Flagyl or vancomycin. (2) Hypoxemia Conclusion/Plan: Varies between 1 to 2 L. At home he uses 2 to 3 L as needed.On admission he had an increased need of oxygen up to 4 L. Plan: We will continue to provide oxygen as needed. At this time I think he is down to baseline for himself. (3) Hyponatremia improving Conclusion/Plan: He was admitted with a sodium of 128. By this morning he is 131. Most of this was dehydration, and hyperglycemia. As both of these processes improved his sodium has improved. Continue to monitor. (4) Diabetes mellitus type 2, uncontrolled, with complications Conclusion/Plan: He presented with a severely elevated glucose that required an insulin drip. By yesterday evening I was able to discontinue the drip with his glucose of 119 and started him on Lantus 25 units at night. Sliding scale. This morning he is crept up into the mid 200s so I have started Lantus in the morning and at night. Have added 5 units with meals. And added sliding scale. We will continue to adjust insulin as needed. This is a new diagnosis for him. I told him he cannot keep on drinking his Coke and he is very unhappy (5) COPD with exacerbation Conclusion/Plan: Initially he required an increase in his baseline oxygen need. Currently stable. Lungs have diminished breath sounds and a barrel chest but there is no outright respiratory distress. He is on albuterol as needed, DuoNeb twice daily, and stable. As such exacerbation resolved (6) Senescence Conclusion/Plan: Pt is currently DNR and has verbally expressed his overall deteriorating state of health. He is depressed today. Stating that he is a burden to his family. He wishes he was not alive. He is not suicidal and has no plans to kill himself. However he wishes to de-escalate therapy and treatment. I have asked for a family conference this afternoon and will have advance care planning conversation. - Lab Results
--- NOTE | 2021-08-30 18:45 | ADVANCE CARE PLANNING NOTE ---
Advance Care Planning - Planning Encounter Date: 08/30/21 Time: 18:43 Purpose: [facility] care goals Parties in Attendance: hospitalist, [employer] Kanika Chou, son, and daughter. Decisional Capacity of the Patient: alert, oriented, and son and daughter endorse he makes his own decisions - Encounter Subjective/Patient's Story: He is not a fairly vigorous life. 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 About a year and a half ago, his body started "breaking down" and he has been slowing down more and more. It is left him depressed, and increasingly frustrated by his bodies disability to just bounce back. Much of this has to do with his bladder cancer diagnosis. He is now using a scooter. Spends most of his time sedentary either in bed or in a chair. His daughter and son both describe that he still is part of their family. They will try and do things together, and have get-togethers so that he can enjoy life. He is very grateful to that. He loves his children. He is very happy they have been able to take care of him, but he no longer wants to proceed with doing interventions. He had them call EMS yesterday not so much for himself but for them. He was afraid that if something happened to him and he at home yesterday (which was his wish) that they would get in trouble for letting him at home. I asked his son and daughter if this is consistent with what he has told him in the past. With tears in their eyes both children state that he is consistently set this for the last few months. While he is not suicidal and has no plans on killing himself, he really actively is seeking palliative,/comfort measures only. If he had the ability to stay home yesterday and gradually from septic shock and not wake up he would have taken that option. Objective/Medical Story: Patient is a 81 year old male with hx of COPD, asthma, prostate cancer, bladdder cancer, and chronic back pain. Pt presented to the ED earlier this AM for increasing shortness of breath. Per patient and patient's son, he has been increasingly dyspneic and has been needing to use home oxygen more frequently. Typically patient is able address shortness of breath with albuterol inhaler, but last night he was unable to get it under control. Pt does not report any chills, fevers, or cough. Pt does report having increased weakness, malaise, and weight gain. In the ED, patient was found to have an leukocytosis, elevated lactic acid, neutrophilia, hyponatremia, hypokalemia, anion gap of 18, hypocalcemia, elevated CRP, elevated glucose and urine positive for leukocytes, bacteria. Negative COVID. Pt was also tachycardic, and hypotensive. Pt was placed on 5 liters of oxygen via NC. History - Past Medical History Cardiovascular: reports: None, Arrhythmia, Other (Chronic RBBB) Respiratory: reports: Asthma, COPD, Shortness of breath Neuro: reports: Headaches, Other (Pt does not report chronic headaches at this time ) Endocrine/Autoimmune: reports: None GI: reports: None : reports: Other (Pt has a urostomy in place) HEENT: reports: None Psych: reports: None Musculoskeletal: reports: Osteoarthritis, Chronic back pain Derm: reports: Psoriasis MRSA Hx?: No - Past Surgical History General: reports: Colonoscopy Ortho: reports: Arthroscopic surgery, Spine surgery, Other (Sternum repair) We have found him to have septic shock from Klebsiella and E. coli. He has responded to IV fluids, antibiotics, and did not need Levophed. His lactic acid is now normal. His acute kidney injury is resolving. His blood pressure is stable. He is alert, oriented, weak, tired. Goals of Care: To return to home after this acute episode of care. He no longer wishes hospitalizations. Plan: 1. POLST form filled out tonthea. Copy will be kept in the chart and the original will go with the family 2. Palliative care consultation to start seeing the patient in the near future Code Status: Do Not Attempt Resuscitation Time spent on advance care plannin minutes
[2021-08-30] MEDS ORDERED: LORazepam 1 MG TABLET PO PRN (19:25)
[2021-08-30] MEDS: MONTELUKAST 10 MG TABLET PO SCH (21:03)
[2021-08-31] MEDS: CEFEPIME 2 GM in SODIUM CHLORIDE 0.9% MINIBAG 100 ML IV SCH ×2 (01:17→12:52)
[2021-08-31] MEDS: SODIUM CHLORIDE FLUSH 0.9% 10 ML SYRINGE IVP SCH ×4 (01:18→22:23)
[2021-08-31] MEDS: LACTATED RINGERS 1,000 ML IV SCH (04:12)
[2021-08-31] MEDS: SODIUM CHLORIDE FLUSH 0.9% 10 ML SYRINGE IVP PRN ×2 (05:04→12:49)
[2021-08-31 05:26] LABS: CALCIUM, IONIZED 1.17 mmol/L (1.15-1.33); VBG PH 7.189 (7.31-7.41)
[2021-08-31 05:28] LABS: BASOPHILS % (AUTO) 0.2 %; EOSINOPHILS # (AUTO) 0.1 10^3/uL (0.0-0.7); EOSINOPHILS % (AUTO) 0.3 %; HCT - HEMATOCRIT 31.4 % (42.0-52.0); HGB - HEMOGLOBIN 10.5 g/dL (14.0-18.0); LYMPHOCYTES # (AUTO) 0.8 10^3/uL (1.5-3.5); LYMPHOCYTES % (AUTO) 4.5 %; MEAN CORPUSCULAR HEMOGLOBIN 30.1 pg (27.0-31.0); MEAN CORPUSCULAR HGB CONC 33.4 g/dL (32.0-36.0); MEAN PLATELET VOLUME 10.3 fL (7.4-11.4); MONOCYTES # (AUTO) 0.6 10^3/uL (0.0-1.0); NEUTROPHILS # (AUTO) 16.7 10^3/uL (1.5-6.6); NEUTROPHILS % (AUTO) 89.8 %; NRBC ABSOLUTE COUNT (AUTO) 0.02 x10^3/uL; NUCLEATED RED BLOOD CELLS AUTO 0.1 /100WBC; PLT - PLATELET COUNT 139 10^3/uL (130-450); RED BLOOD COUNT 3.49 10^6/uL (4.70-6.10); RED CELL DISTRIBUTION WIDTH 14.7 % (12.0-15.0); WHITE BLOOD COUNT 18.6 x10^3/uL (4.8-10.8)
[2021-08-31 05:34] LABS: CALCIUM 7.9 mg/dL (8.5-10.3); CREATININE 1.5 mg/dL (0.6-1.2); POTASSIUM 3.6 mmol/L (3.5-5.0)
--- NOTE | 2021-08-31 07:59 | PROVIDER PROGRESS NOTE ---
Assessment/Plan - Problem List (1) Sepsis Qualifiers: Sepsis type: sepsis due to unspecified organism Sepsis acute organ dysfunction status: without acute organ dysfunction Qualified Code(s): A41.9 - Sepsis, unspecified organism Assessment/Plan: Likely secondary to a UTI. Patient has a urostomy tube in place. Blood cultures grew Klebsiella. Patient is on cefepime. We will continue. White blood cell count today is 18.6. This is an improvement from 40.3. Lactic acid at time of admission was 5.6. Currently lactic acid is 1.9. Renal function improved. Creatinine at admission was 1.9 and currently is 1.5. IV hydration discontinued due to lower extremity edema (2) COPD exacerbation Assessment/Plan: Improved. Oxygen saturations currently 95% on 1 L of oxygen via nasal cannula with a respiratory rate of 20. On DuoNeb twice daily, albuterol every 4 hours as needed. Montelukast 10 mg p.o. every afternoon. Prednisone 10 mg p.o. daily with meals. (3) Diabetes mellitus type 2, uncontrolled, with complications Assessment/Plan: Hemoglobin A1c was 11.4. Patient is on Lantus 15 units bid. Insulin aspart 5 units subcu 3 times daily with meals. Sliding scale insulin. Gabapentin 300 mg p.o. twice daily (4) BAIRON (acute kidney injury) Assessment/Plan: Likely secondary to sepsis related to UTI. Creatinine on admission was 1.9. Currently creatinine is 1.5. Patient had been receiving IV hydration however this was discontinued due to lower extremity edema. We will continue to monitor renal function. - Current Meds Current Meds: Current Medications Generic Name Dose Route Start Last Admin Trade Name Denita PRN Reason Stop Dose Admin Acetaminophen 650 mg 08/29/21 06:32 08/29/21 12:52 Acetaminophen 325 Mg Tablet PO 650 mg Q4HR PRN Administration Pain 1 to 4, or Fever Hydrocodone Bitart/Acetaminophen 1 tab 08/29/21 14:44 08/30/21 19:18 Hydrocod/Acetam 10 Mg/325 Mg Tablet PO 1 tab 5XD PRN Administration PAIN Albuterol/Ipratropium 3 ml 08/29/21 21:00 08/30/21 21:30 Ipratropium/Albuterol 3 Ml Neb INH 3 ml BID REBECCA Administration Gabapentin 300 mg 08/29/21 21:00 08/30/21 21:03 Gabapentin 300 Mg Capsule PO 300 mg BID REBECCA Administration Heparin Sodium (Porcine) 5,000 unit 08/29/21 09:00 08/30/21 21:06 Heparin 5,000 Unit/Ml Vial SUBQ 5,000 unit BID REBECCA Administration Lactated Ringer's 1,000 mls @ 125 mls/hr 08/29/21 07:00 08/31/21 04:12 Lr IV 125 mls/hr .Q8H REBECCA Administration Cefepime HCl 2 gm/ Sodium 100 mls @ 200 mls/hr 08/29/21 13:00 08/31/21 01:50 Chloride IV Infused Q12H REBECCA Infusion Norepinephrine Bitartrate 8 mg 250 mls @ 15 mls/hr 08/29/21 09:00 08/30/21 18:23 / Dextrose IV Not Given .[id number] REBECCA Protocol 8 MCG/MIN Insulin Human Regular 100 unit 100 mls @ 1 mls/hr 08/29/21 19:05 08/29/21 20:06 / Sodium Chloride IV 09/01/21 08:59 Not Given .Q72H ONE Protocol 1 UNIT/HR Sodium Chloride 500 mls @ 20 mls/hr 08/29/21 20:08 08/30/21 15:00 Normal Saline 0.9% IV 0 mls/hr Q24H PRN Infusion TKO RATE Insulin Aspart 2 - 10 unit 08/29/21 21:00 08/30/21 21:06 Insulin Aspart 300 Unit/3 Ml Pen SUBQ 6 unit 0800,1200,1700,2100 REBECCA Administration Protocol Insulin Aspart 5 unit 08/30/21 12:00 08/30/21 17:21 Insulin Aspart 300 Unit/3 Ml Pen SUBQ 5 unit TIDWM REBECCA Administration Protocol Insulin Glargine 25 unit 08/29/21 19:03 08/30/21 21:05 Insulin Glargine 300 Unit/3 Ml Pen SUBQ 25 unit QPM REBECCA Administration Insulin Glargine 20 unit 08/30/21 11:00 08/30/21 11:48 Insulin Glargine 300 Unit/3 Ml Pen SUBQ 20 unit [id number] REBECCA Administration Montelukast Sodium 10 mg 08/29/21 21:00 08/30/21 21:03 Montelukast 10 Mg Tablet PO 10 mg QPM REBECCA Administration Prednisone 10 mg 05/01/22 15:00 08/30/21 07:57 Prednisone 10 Mg Tablet PO 10 mg DAILYWM REBECCA Administration Sodium Chloride 10 ml 08/29/21 09:00 08/31/21 01:18 Sodium Chloride Flush 0.9% 10 Ml Syringe IVP Not Given 0100,0900,1700 REBECCA Sodium Chloride 10 ml 08/29/21 06:32 08/31/21 05:04 Sodium Chloride Flush 0.9% 10 Ml Syringe IVP 30 ml PRN PRN Administration NEEDED PER PROVIDER ORDERS - Lab Result Fish Bone Diagrams: 08/31/21 05:05 08/31/21 05:05 Subjective - Subjective Patient Reports: Other (Patient complained of significant back pain at time of exam. He has blanching rash/blisters on his left [place]. Has 2+ lower extremity edema. Lung sounds are coarse) Objective Vital Signs: Vital Signs - 24 hr 08/30/21 08/30/21 08/30/21 09:00 10:00 11:00 Temperature Heart Rate Heart Rate [ Brachial] Heart Rate [ 96 95 91 Monitoring electrodes] Respiratory 11 L 19 12 Rate Blood Pressure 103/84 H 110/65 105/63 [Right Brachial artery] Blood Pressure [Right Radial artery] O2 Saturation 95 95 92 08/30/21 08/30/21 08/30/21 11:11 12:00 13:00 Temperature 36.4 C L Heart Rate 90 Heart Rate [ Brachial] Heart Rate [ 98 103 H Monitoring electrodes] Respiratory 16 17 12 Rate Blood Pressure 109/62 120/62 [Right Brachial artery] Blood Pressure [Right Radial artery] O2 Saturation 93 96 08/30/21 08/30/21 08/30/21 14:00 15:00 16:00 Temperature Heart Rate Heart Rate [ Brachial] Heart Rate [ 98 92 101 H Monitoring electrodes] Respiratory 11 L 10 L 15 Rate Blood Pressure 115/64 102/63 131/74 H [Right Brachial artery] Blood Pressure [Right Radial artery] O2 Saturation 97 97 96 08/30/21 08/30/21 08/30/21 16:06 17:18 18:00 Temperature 36.4 C L Heart Rate Heart Rate [ Brachial] Heart Rate [ 95 10 L Monitoring electrodes] Respiratory 13 21 Rate Blood Pressure 138/85 H [Right Brachial artery] Blood Pressure [Right Radial artery] O2 Saturation 97 100 08/30/21 08/30/21 08/30/21 19:00 20:00 21:30 Temperature Heart Rate 89 Heart Rate [ Brachial] Heart Rate [ 99 93 Monitoring electrodes] Respiratory 11 L 15 18 Rate Blood Pressure [Right Brachial artery] Blood Pressure 120/60 131/85 H [Right Radial artery] O2 Saturation 100 97 08/31/21 08/31/21 08/31/21 04:15 05:49 07:52 Temperature 36.4 C L 36.4 C L Heart Rate Heart Rate [ 96 99 Brachial] Heart Rate [ Monitoring electrodes] Respiratory 16 20 Rate Blood Pressure [Right Brachial artery] Blood Pressure 112/57 L 123/62 [Right Radial artery] O2 Saturation 90 L 94 95 Oxygen O2 Source Nasal cannula Oxygen Flow Rate 4 I&O (Last 24 Hrs): Intake and Output Totals x24h 08/29/21 08/30/21 08/31/21 23:59 23:59 23:59 Intake Total 5805.030 4283.000 1100 Output Total 1835 670 600 Balance 3970.030 3613.000 500 General: Alert, Oriented x3, Moderate distress HEENT: PERRLA, EOMI Neck: Supple, No JVD Neuro: Alert, Non Focal, Oriented Times 3 Cardiovascular: Regular rate Respiratory: Chest non-tender, Other (Coarse breath sounds. Mild resp distress) Abdomen: Normal bowel sounds, Soft, No tenderness, No masses Extremities: No clubbing Comments/Notes: rash/ blister on left [place] - Results Results: Laboratory Results WBC 18.6 x10^3/uL (4.8-10.8) H 08/31/21 05:05 RBC 3.49 10^6/uL (4.70-6.10) L 08/31/21 05:05 Hgb 10.5 g/dL (14.0-18.0) L 08/31/21 05:05 Hct 31.4 % (42.0-52.0) L 08/31/21 05:05 MCV 90.0 fL (80.0-94.0) 08/31/21 05:05 MCH 30.1 pg (27.0-31.0) 08/31/21 05:05 MCHC 33.4 g/dL (32.0-36.0) 08/31/21 05:05 RDW 14.7 % (12.0-15.0) 08/31/21 05:05 Plt Count 139 10^3/uL (130-450) 08/31/21 05:05 MPV 10.3 fL (7.4-11.4) 08/31/21 05:05 Neut # (Auto) 16.7 10^3/uL (1.5-6.6) H 08/31/21 05:05 Lymph # (Auto) 0.8 10^3/uL (1.5-3.5) L 08/31/21 05:05 [place] # (Auto) 0.6 10^3/uL (0.0-1.0) 08/31/21 05:05 Eos # (Auto) 0.1 10^3/uL (0.0-0.7) 08/31/21 05:05 Baso # (Auto) 0.0 10^3/uL (0.0-0.1) 08/31/21 05:05 Absolute Nucleated RBC 0.02 x10^3/uL 08/31/21 05:05 Total Counted 100 08/30/21 05:15 Band Neuts % (Manual) 10 % (0-10) 08/30/21 05:15 Abnorm Lymph % (Manual) 0 % 08/30/21 05:15 Nucleated RBC % 0.1 /100WBC 08/31/21 05:05 Neutrophils # (Manual) 32.1 10^3/uL (1.5-6.6) H 08/30/21 05:15 Lymphocytes # (Manual) 0.7 10^3/uL (1.5-3.5) L 08/30/21 05:15 Monocytes # (Manual) 1.0 10^3/uL (0.0-1.0) 08/30/21 05:15 Eosinophils # (Manual) 0.0 10^3/uL (0-0.7) 08/30/21 05:15 Basophils # (Manual) 0.0 10^3/uL (0-0.1) 08/30/21 05:15 Differential Comment MANUAL DIFFERENTIAL 08/30/21 05:15 WBC Morphology NORMAL APPEARANCE (NORMAL) 08/30/21 05:15 Platelet Estimate NORMAL (130-450,000) (NORMAL) 08/30/21 05:15 Platelet Morphology NORMAL APPEARANCE (NORMAL) 08/30/21 05:15 RBC Morph Micro Appear NORMAL APPEARANCE (NORMAL) 08/30/21 05:15 PT 13.4 secs (9.9-12.6) H 08/29/21 01:13 INR 1.2 (0.8-1.2) 08/29/21 01:13 APTT 27.4 secs (24.9-33.3) 08/29/21 01:13 VBG pH 7.189 (7.31-7.41) L 08/31/21 05:05 Ionized Calcium 1.17 mmol/L (1.15-1.33) 08/31/21 05:05 Sodium 130 mmol/L (135-145) L 08/31/21 05:05 Potassium 3.6 mmol/L (3.5-5.0) 08/31/21 05:05 Chloride 105 mmol/L (101-111) 08/31/21 05:05 Carbon Dioxide 18 mmol/L (21-32) L 08/31/21 05:05 Anion Gap 7.0 (6-13) 08/31/21 05:05 BUN 45 mg/dL (6-20) H 08/31/21 05:05 Creatinine 1.5 mg/dL (0.6-1.2) H 08/31/21 05:05 Estimated GFR (MDRD) 45 (>89) L 08/31/21 05:05 Glucose 120 mg/dL (70-100) H 08/31/21 05:05 Estimat Average Glucose 280 mg/dL (70-100) H 08/29/21 06:49 Hemoglobin A1c % 11.4 % (4.27-6.07) H 08/29/21 06:49 Lactic Acid 1.9 mmol/L (0.5-2.2) 08/29/21 22:50 Calcium 7.9 mg/dL (8.5-10.3) L 08/31/21 05:05 Phosphorus 4.5 mg/dL (2.5-4.6) 08/30/21 05:15 Magnesium 1.8 mg/dL (1.7-2.8) 08/30/21 05:15 Total Bilirubin 1.1 mg/dL (0.2-1.0) H 08/29/21 01:13 AST 44 IU/L (10-42) H 08/29/21 01:13 ALT 40 IU/L (10-60) 08/29/21 01:13 Alkaline Phosphatase 97 IU/L (42-121) 08/29/21 01:13 Troponin I High Sens 57.6 ng/L (2.3-19.7) H* 08/29/21 06:49 C-Reactive Protein 24.5 mg/dL (0-1.0) H 08/29/21 06:49 B-Natriuretic Peptide 274 pg/mL (5-100) H 08/29/21 01:13 Total Protein 6.6 g/dL (6.7-8.2) L 08/29/21 01:13 Albumin 2.8 g/dL (3.2-5.5) L 08/29/21 01:13 Globulin 3.8 g/dL (2.1-4.2) 08/29/21 01:13 Albumin/Globulin Ratio 0.7 (1.0-2.2) L 08/29/21 01:13 Lipase 25 U/L (22-51) 08/29/21 01:13 Urine Color YELLOW 08/29/21 01:14 Urine Clarity CLOUDY (CLEAR) 08/29/21 01:14 Urine pH 7.0 PH (5.0-7.5) 08/29/21 01:14 Ur Specific [place] 1.020 (1.002-1.030) 08/29/21 01:14 Urine Protein 100 mg/dL (NEGATIVE) H 08/29/21 01:14 Urine Glucose (UA) 500 mg/dL (NEGATIVE) H 08/29/21 01:14 Urine Ketones NEGATIVE mg/dL (NEGATIVE) 08/29/21 01:14 Urine Occult Blood LARGE (NEGATIVE) H 08/29/21 01:14 Urine Nitrite NEGATIVE (NEGATIVE) 08/29/21 01:14 Urine Bilirubin NEGATIVE (NEGATIVE) 08/29/21 01:14 Urine Urobilinogen 0.2 (NORMAL) E.U./dL (NORMAL) 08/29/21 01:14 Ur Leukocyte Esterase MODERATE (NEGATIVE) H 08/29/21 01:14 Urine RBC 6-10 /HPF (0-5) H 08/29/21 01:14 Urine WBC >25 /HPF (0-3) H 08/29/21 01:14 Ur Squamous Epith Cells NONE SEEN (<= Few) 08/29/21 01:14 Urine Bacteria Many /HPF (None Seen) H 08/29/21 01:14 Ur Microscopic Review INDICATED 08/29/21 01:14 Urine Culture Comments INDICATED 08/29/21 01:14 Nasal Adenovirus (PCR) NOT DETECTED 08/29/21 01:13 Nasal B. parapertussis DNA (PCR) NOT DETECTED 08/29/21 01:13 Nasal Coronavir 229E PCR NOT DETECTED 08/29/21 01:13 Nasal Coronavir HKU1 PCR NOT DETECTED 08/29/21 01:13 Nasal Coronavir NL63 PCR NOT DETECTED 08/29/21 01:13 Nasal Coronavir OC43 PCR NOT DETECTED 08/29/21 01:13 Nasal Enterovir/Rhinovir PCR NOT DETECTED 08/29/21 01:13 Nasal Influenza B PCR NOT DETECTED 08/29/21 01:13 Nasal Influenza A PCR NOT DETECTED 08/29/21 01:13 Nasal Parainfluen 1 PCR NOT DETECTED 08/29/21 01:13 Nasal Parainfluen 2 PCR NOT DETECTED 08/29/21 01:13 Nasal Parainfluen 3 PCR NOT DETECTED 08/29/21 01:13 Nasal Parainfluen 4 PCR NOT DETECTED 08/29/21 01:13 Nasal RSV (PCR) NOT DETECTED 08/29/21 01:13 Nasal Screen MRSA (PCR) NEGATIVE (NEGATIVE) 08/29/21 09:15 Nasal B.pertussis DNA PCR NOT DETECTED 08/29/21 01:13 Nasal C.pneumoniae (PCR) NOT DETECTED 08/29/21 01:13 [place] Human Metapneumo PCR NOT DETECTED 08/29/21 01:13 Nasal M.pneumoniae (PCR) NOT DETECTED 08/29/21 01:13 Nasal SARS-CoV-2 (PCR) NOT DETECTED 08/29/21 01:13 Sepsis Event Note (H) - Evaluation Current Stage of Sepsis: Resolved Possible source of Sepsis: positive: Genitourinary - Sepsis Criteria Sepsis Criteria: Recorded Heart Rate greater than 90 bpm, WBC count greater than 10% bands, WBC count greater than 12,000 or less than 4000, SBP less than 90 mmHg, Metabolic: lactate > 2 mmol/L ABX Reporting Has patient been on IV antibiotics over the past 48 hours?: Yes
[2021-08-31] MEDS: INSULIN ASPART 300 UNIT/3 ML PEN SUBQ SCH ×7 (08:19→21:54)
[2021-08-31] MEDS: predniSONE 10 MG TABLET PO SCH (08:20)
[2021-08-31] MEDS: HYDROcod/ACETAM 10 MG/325 MG TABLET PO PRN ×3 (08:20→19:31)
[2021-08-31] MEDS: GABAPENTIN 300 MG CAPSULE PO SCH ×2 (08:21→21:48)
[2021-08-31] MEDS: HEPARIN 5,000 UNIT/ML VIAL SUBQ SCH ×2 (08:24→21:48)
[2021-08-31] MEDS: IPRATROPIUM/ALBUTEROL 3 ML NEB INH SCH ×2 (09:13→21:59)
[2021-08-31] MEDS: INSULIN GLARGINE 300 UNIT/3 ML PEN SUBQ SCH ×3 (09:32→22:22)
--- NOTE | 2021-08-31 18:32 | CT Report ---
PROCEDURE: HEAD WO INDICATIONS: fall TECHNIQUE: Noncontrast 4.5 mm thick angled axial sections acquired from the foramen magnum to the vertex. For r adiation dose reduction, the following was used: automated exposure control, adjustment of mA and/or kV according to patient size. COMPARISON: None. FINDINGS: Image quality: Excellent. The ventricular system and cortical sulci demonstrate atrophy, consistent for patient's stated age. There are areas of hypodensity in the periventricular and subcortical white matter. There is no acut e intra or extra-axial fluid collection. No acute hemorrhage, mass lesion or midline shift. Brainst em is unremarkable. Globes are symmetrical. Sinuses are aerated. Osseous structures are intact. IMPRESSION: 1. No acute intracranial process. 2. Moderate atrophy and chronic microvascular ischemic changes. Reviewed by: Latonya Cook MD on 08/31/2021 5:31 PM JESSICA Approved by: Latonya Cook MD on 08/31/2021 5:31 PM JESSICA Station ID: [id number]
[2021-08-31] MEDS: MONTELUKAST 10 MG TABLET PO SCH (21:48)
[2021-09-01] MEDS: CEFEPIME 2 GM in SODIUM CHLORIDE 0.9% MINIBAG 100 ML IV SCH ×2 (01:31→12:45)
[2021-09-01 04:46] LABS: BASOPHILS % (AUTO) 0.2 %; CALCIUM, IONIZED 1.22 mmol/L (1.15-1.33); EOSINOPHILS % (AUTO) 0.4 %; HGB - HEMOGLOBIN 10.4 g/dL (14.0-18.0); LYMPHOCYTES % (AUTO) 6.5 %; MEAN CORPUSCULAR HEMOGLOBIN 29.9 pg (27.0-31.0); MEAN CORPUSCULAR HGB CONC 32.5 g/dL (32.0-36.0); MEAN PLATELET VOLUME 9.6 fL (7.4-11.4); NEUTROPHILS % (AUTO) 84.4 %; PLT - PLATELET COUNT 130 10^3/uL (130-450); RED BLOOD COUNT 3.48 10^6/uL (4.70-6.10); RED CELL DISTRIBUTION WIDTH 15.1 % (12.0-15.0); VBG PH 7.143 (7.31-7.41); WHITE BLOOD COUNT 16.4 x10^3/uL (4.8-10.8)
[2021-09-01 04:52] LABS: ABNORMAL LYMPHS % (MANUAL) 0 %
[2021-09-01 04:55] LABS: CALCIUM 8.2 mg/dL (8.5-10.3); CREATININE 1.4 mg/dL (0.6-1.2); POTASSIUM 3.9 mmol/L (3.5-5.0)
[2021-09-01 05:00] LABS: BAND NEUTROPHILS % (MANUAL) 2 %; EOSINOPHILS # (MANUAL) 0.2 10^3/uL (0-0.7); LYMPHOCYTES # (MANUAL) 1.6 10^3/uL (1.5-3.5); LYMPHOCYTES % (MANUAL) 10 %; MONOCYTES # (MANUAL) 0.3 10^3/uL (0.0-1.0); MYELOCYTES % (MANUAL) 1 %; NEUTROPHILS # (MANUAL) 14.1 10^3/uL (1.5-6.6)
[2021-09-01 05:01] LABS: DIFFERENTIAL COMMENT MANUAL DIFFERENTIAL; PLATELET ESTIMATE, MANUAL NORMAL (130-450,000) (NORMAL); PLATELET MORPHOLOGY NORMAL APPEARANCE (NORMAL); RBC MORPHOLOGY (MULTIPLE) NORMAL APPEARANCE (NORMAL); WBC MORPHOLOGY (MULTIPLE) NORMAL APPEARANCE (NORMAL)
--- NOTE | 2021-09-01 07:57 | CT Report ---
PROCEDURE: CERVICAL SPINE WO INDICATIONS: FALL TECHNIQUE: Noncontrast 3 mm thick sections acquired from the skull base to the T4 level. Sagittal and coronal r eformats were then constructed. For radiation dose reduction, the following was used: automated exp osure control, adjustment of mA and/or kV according to patient size. COMPARISON: CT head 08/31/2021 FINDINGS: Image quality: Excellent. Bones: No fractures or dislocations. Visualized superior ribs are intact. There is trace retrolist hesis of C5 on C6. Moderate to severe disc space narrowing is present at C5-6. Soft tissues: Prevertebral soft tissues are normal in thickness. No paravertebral hematomas. No ap ical pneumothoraces. Minimal left pleural effusion. IMPRESSION: No visualized fracture or dislocation. Reviewed by: Latonya Cook MD on 08/31/2021 5:30 PM AKUSMAN Approved by: Latonya Cook MD on 08/31/2021 5:30 PM AKUSMAN Station ID: [id number]
--- NOTE | 2021-09-01 08:27 | PROVIDER PROGRESS NOTE ---
Assessment/Plan - Problem List (1) Sepsis Qualifiers: Sepsis type: sepsis due to unspecified organism Sepsis acute organ dysfunction status: without acute organ dysfunction Qualified Code(s): A41.9 - Sepsis, unspecified organism Assessment/Plan: Has resolved. Likely due to UTI from urostomy tube. Blood cultures grew Klebsiella. Will continue to treat with cefipime. Family wants patient to d/c soon and continue abx at home. Hope to d/c in next couple days with PO abx. WBC continues to improve. 16.4 today and 40.3 at admission. Renal function continues to improve, creatinine 1.4 today and 1.9 at admission. IV fluids held due to lower extremity edema. (2) COPD exacerbation Assessment/Plan: Improved with nebs and steroids. Now 98% on 1L. Continue duoneb bid and albuterol prn. Montelukast every evening and po prednisone 10mg with meals. (3) Diabetes mellitus type 2, uncontrolled, with complications Assessment/Plan: New diagnosis while in hospital. HbA1C 11.4%. On Lantus 15 u bid, Novolog 5u bid with meals and Novolog sliding scale. BG in 94 and 116 premeals today. Pt family plan to meet with primitivo Mcintosh, for diabetes education today. Gabapentin 300 bid (4) BAIRON (acute kidney injury) Assessment/Plan: Likely secondary to sepsis and UTI. Creatinine continues to improve. Today it was 1.4 and it was 1.9 at admission. Was receiving IV hydration but has been held due to lower extremity edema. Continue to monitor renal function. (5) Fall during current hospitalization Qualifiers: Encounter type: subsequent encounter Qualified Code(s): W19.XXXD - Unspecified fall, subsequent encounter; Y92.239 - Unspecified place in hospital as the place of occurrence of the external cause Assessment/Plan: Patient was found down on ground in room between bed and recliner yesterday evening, 08/31. Likely trying to transfer from bed to chair and lost his balance. Complained of hitting his head so CT head and neck performed. CT head and neck showed no acute intracranial processes or fractures. Continue to encourage use of call light, chair alarm/bed alarm, and safety checks. (6) Senescence Assessment/Plan: Patient has strong support of son and [id number] at home. End of life care conference was family was done on 08/30 and POLST completed. Palliative care referral made. Patient and family's goal is to focus on comfort. (7) Cor pulmonale Assessment/Plan: Right sided HF s/t COPD. Pt fluid overloaded, 2+ pitting edema, wet lungs. Torsemide currently held due to sepsis. Will resume torsemide at d/c. - Current Meds Current Meds: Current Medications Generic Name Dose Route Start Last Admin Trade Name Freq PRN Reason Stop Dose Admin Acetaminophen 650 mg 08/29/21 06:32 08/29/21 12:52 Acetaminophen 325 Mg Tablet PO 650 mg Q4HR PRN Administration Pain 1 to 4, or Fever Hydrocodone Bitart/Acetaminophen 1 tab 08/29/21 14:44 08/31/21 19:31 Hydrocod/Acetam 10 Mg/325 Mg Tablet PO 1 tab 5XD PRN Administration PAIN Albuterol/Ipratropium 3 ml 08/29/21 21:00 08/31/21 21:59 Ipratropium/Albuterol 3 Ml Neb INH 3 ml BID REBECCA Administration Gabapentin 300 mg 08/29/21 21:00 08/31/21 21:48 Gabapentin 300 Mg Capsule PO 300 mg BID REBECCA Administration Heparin Sodium (Porcine) 5,000 unit 08/29/21 09:00 08/31/21 21:48 Heparin 5,000 Unit/Ml Vial SUBQ 5,000 unit BID REBECCA Administration Cefepime HCl 2 gm/ Sodium 100 mls @ 200 mls/hr 08/29/21 13:00 09/01/21 02:05 Chloride IV Infused Q12H REBECCA Infusion Sodium Chloride 500 mls @ 20 mls/hr 08/29/21 20:08 08/30/21 15:00 Normal Saline 0.9% IV Infused Q24H PRN Infusion TKO RATE Insulin Aspart 2 - 10 unit 08/29/21 21:00 08/31/21 21:54 Insulin Aspart 300 Unit/3 Ml Pen SUBQ Not Given 0800,1200,1700,2100 [facility] Protocol Insulin Aspart 5 unit 08/30/21 12:00 08/31/21 21:32 Insulin Aspart 300 Unit/3 Ml Pen SUBQ Not Given TIDWM [facility] Protocol Insulin Glargine 15 unit 09/01/21 08:00 08/31/21 22:08 Insulin Glargine 300 Unit/3 Ml Pen SUBQ 15 unit QDBREAKFAST REBECCA Administration Insulin Glargine 15 unit 08/31/21 21:00 08/31/21 22:22 Insulin Glargine 300 Unit/3 Ml Pen SUBQ 15 unit QPM REBECCA Administration Lorazepam 1 mg 08/30/21 19:25 08/31/21 20:15 Lorazepam 1 Mg Tablet PO 1 mg Q6H PRN Administration Anxiety Montelukast Sodium 10 mg 08/29/21 21:00 08/31/21 21:48 Montelukast 10 Mg Tablet PO 10 mg QPM REBECCA Administration Prednisone 10 mg 08/29/21 15:00 08/31/21 08:20 Prednisone 10 Mg Tablet PO 10 mg DAILYWM REBECCA Administration Sodium Chloride 10 ml 08/29/21 09:00 08/31/21 22:23 Sodium Chloride Flush 0.9% 10 Ml Syringe IVP 10 ml 0100,0900,1700 REBECCA Administration Sodium Chloride 10 ml 08/29/21 06:32 08/31/21 12:49 Sodium Chloride Flush 0.9% 10 Ml Syringe IVP 10 ml PRN PRN Administration NEEDED PER PROVIDER ORDERS - Lab Result Lab results reviewed: Yes Fish Bone Diagrams: 09/01/21 04:35 09/01/21 04:35 Subjective - Subjective Patient Reports: Resting Comfortably (Pt sleeping all morning, per family, patient will have days where he sleeps all day after big event/outings), Other (Snoring softly at time of exam, wakes up and opens eyes and then goes back to sleep) Nursing Reports: Other (Patient sleeping at breakfast and lunch time, opens eyes and says a few words and then falls back to sleep) Objective Vital Signs: Vital Signs - 24 hr 08/31/21 08/31/21 08/31/21 09:15 15:35 15:37 Temperature 36.5 C Heart Rate 101 H Heart Rate [ 84 Brachial] Respiratory 20 20 20 Rate Blood Pressure [Left Radial artery] Blood Pressure 122/62 [Right Radial artery] O2 Saturation 89 L 92 08/31/21 08/31/21 08/31/21 17:30 18:21 21:55 Temperature 36.2 C L Heart Rate 93 Heart Rate [ 101 H 96 Brachial] Respiratory 22 20 16 Rate Blood Pressure 127/83 H [Left Radial artery] Blood Pressure 111/61 [Right Radial artery] O2 Saturation 98 96 09/01/21 09/01/21 00:10 07:33 Temperature 36.3 C L 36.3 C L Heart Rate Heart Rate [ 91 99 Brachial] Respiratory 12 18 Rate Blood Pressure 130/67 [Left Radial artery] Blood Pressure 137/70 H [Right Radial artery] O2 Saturation 95 98 Oxygen O2 Source Nasal cannula Oxygen Flow Rate 4 I&O (Last 24 Hrs): Intake and Output Totals x24h 08/30/21 08/31/21 09/01/21 23:59 23:59 23:59 Intake Total 4283.000 2617.000 100 Output Total 670 2000 875 Balance 3613.000 617.000 -775 General: Other (Sleeping in bed, snoring loudly with mouth open) HEENT: Atraumatic Cardiovascular: Regular rate Respiratory: Rhonchi, Other (Fine crackles with expiration) Abdomen: Normal bowel sounds, Soft Extremities: Other (Left lower extremity erythematous and raised skin of [place], Legs appear mottled but warm,2 + pitting edema BL) Comments/Notes: Pt sleeping and difficult to arouse, per pt son and daughter in law he will s leep during the day often. Legs 2+ pitting edema. Lungs sounds wet. - Results Results: Laboratory Results WBC 16.4 x10^3/uL (4.8-10.8) H 09/01/21 04:35 RBC 3.48 10^6/uL (4.70-6.10) L 09/01/21 04:35 Hgb 10.4 g/dL (14.0-18.0) L 09/01/21 04:35 Hct 32.0 % (42.0-52.0) L 09/01/21 04:35 MCV 92.0 fL (80.0-94.0) 09/01/21 04:35 MCH 29.9 pg (27.0-31.0) 09/01/21 04:35 MCHC 32.5 g/dL (32.0-36.0) 09/01/21 04:35 RDW 15.1 % (12.0-15.0) H 09/01/21 04:35 Plt Count 130 10^3/uL (130-450) 09/01/21 04:35 MPV 9.6 fL (7.4-11.4) 09/01/21 04:35 Neut # (Auto) Not Reportable 09/01/21 04:35 Lymph # (Auto) Not Reportable 09/01/21 04:35 [place] # (Auto) Not Reportable 09/01/21 04:35 Eos # (Auto) Not Reportable 09/01/21 04:35 Baso # (Auto) Not Reportable 09/01/21 04:35 Absolute Nucleated RBC Not Reportable 09/01/21 04:35 Total Counted 100 09/01/21 04:35 Band Neuts % (Manual) 2 % (0-10) 09/01/21 04:35 Abnorm Lymph % (Manual) 0 % 09/01/21 04:35 Myelocytes % 1 % (-0) H 09/01/21 04:35 Nucleated RBC % Not Reportable 09/01/21 04:35 Neutrophils # (Manual) 14.1 10^3/uL (1.5-6.6) H 09/01/21 04:35 Lymphocytes # (Manual) 1.6 10^3/uL (1.5-3.5) 09/01/21 04:35 Monocytes # (Manual) 0.3 10^3/uL (0.0-1.0) 09/01/21 04:35 Eosinophils # (Manual) 0.2 10^3/uL (0-0.7) 09/01/21 04:35 Basophils # (Manual) 0.0 10^3/uL (0-0.1) 09/01/21 04:35 Differential Comment MANUAL DIFFERENTIAL 09/01/21 04:35 WBC Morphology NORMAL APPEARANCE (NORMAL) 09/01/21 04:35 Platelet Estimate NORMAL (130-450,000) (NORMAL) 09/01/21 04:35 Platelet Morphology NORMAL APPEARANCE (NORMAL) 09/01/21 04:35 RBC Morph Micro Appear NORMAL APPEARANCE (NORMAL) 09/01/21 04:35 PT 13.4 secs (9.9-12.6) H 08/29/21 01:13 INR 1.2 (0.8-1.2) 08/29/21 01:13 APTT 27.4 secs (24.9-33.3) 08/29/21 01:13 VBG pH 7.143 (7.31-7.41) L 09/01/21 04:35 Ionized Calcium 1.22 mmol/L (1.15-1.33) 09/01/21 04:35 Sodium 135 mmol/L (135-145) 09/01/21 04:35 Potassium 3.9 mmol/L (3.5-5.0) 09/01/21 04:35 Chloride 110 mmol/L (101-111) 09/01/21 04:35 Carbon Dioxide 18 mmol/L (21-32) L 09/01/21 04:35 Anion Gap 7.0 (6-13) 09/01/21 04:35 BUN 45 mg/dL (6-20) H 09/01/21 04:35 Creatinine 1.4 mg/dL (0.6-1.2) H 09/01/21 04:35 Estimated GFR (MDRD) 49 (>89) L 09/01/21 04:35 Glucose 95 mg/dL (70-100) 09/01/21 04:35 Estimat Average Glucose 280 mg/dL (70-100) H 08/29/21 06:49 Hemoglobin A1c % 11.4 % (4.27-6.07) H 08/29/21 06:49 Lactic Acid 1.9 mmol/L (0.5-2.2) 08/29/21 22:50 Calcium 8.2 mg/dL (8.5-10.3) L 09/01/21 04:35 Phosphorus 4.5 mg/dL (2.5-4.6) 08/30/21 05:15 Magnesium 1.8 mg/dL (1.7-2.8) 08/30/21 05:15 Total Bilirubin 1.1 mg/dL (0.2-1.0) H 08/29/21 01:13 AST 44 IU/L (10-42) H 08/29/21 01:13 ALT 40 IU/L (10-60) 08/29/21 01:13 Alkaline Phosphatase 97 IU/L (42-121) 08/29/21 01:13 Troponin I High Sens 57.6 ng/L (2.3-19.7) H* 08/29/21 06:49 C-Reactive Protein 24.5 mg/dL (0-1.0) H 08/29/21 06:49 B-Natriuretic Peptide 274 pg/mL (5-100) H 08/29/21 01:13 Total Protein 6.6 g/dL (6.7-8.2) L 08/29/21 01:13 Albumin 2.8 g/dL (3.2-5.5) L 08/29/21 01:13 Globulin 3.8 g/dL (2.1-4.2) 08/29/21 01:13 Albumin/Globulin Ratio 0.7 (1.0-2.2) L 08/29/21 01:13 Lipase 25 U/L (22-51) 08/29/21 01:13 Urine Color YELLOW 08/29/21 01:14 Urine Clarity CLOUDY (CLEAR) 08/29/21 01:14 Urine pH 7.0 PH (5.0-7.5) 08/29/21 01:14 Ur Specific [place] 1.020 (1.002-1.030) 08/29/21 01:14 Urine Protein 100 mg/dL (NEGATIVE) H 08/29/21 01:14 Urine Glucose (UA) 500 mg/dL (NEGATIVE) H 08/29/21 01:14 Urine Ketones NEGATIVE mg/dL (NEGATIVE) 08/29/21 01:14 Urine Occult Blood LARGE (NEGATIVE) H 08/29/21 01:14 Urine Nitrite NEGATIVE (NEGATIVE) 08/29/21 01:14 Urine Bilirubin NEGATIVE (NEGATIVE) 08/29/21 01:14 Urine Urobilinogen 0.2 (NORMAL) E.U./dL (NORMAL) 08/29/21 01:14 Ur Leukocyte Esterase MODERATE (NEGATIVE) H 08/29/21 01:14 Urine RBC 6-10 /HPF (0-5) H 08/29/21 01:14 Urine WBC >25 /HPF (0-3) H 08/29/21 01:14 Ur Squamous Epith Cells NONE SEEN (<= Few) 08/29/21 01:14 Urine Bacteria Many /HPF (None Seen) H 08/29/21 01:14 Ur Microscopic Review INDICATED 08/29/21 01:14 Urine Culture Comments INDICATED 08/29/21 01:14 Nasal Adenovirus (PCR) NOT DETECTED 08/29/21 01:13 Nasal B. parapertussis DNA (PCR) NOT DETECTED 08/29/21 01:13 Nasal Coronavir 229E PCR NOT DETECTED 08/29/21 01:13 Nasal Coronavir HKU1 PCR NOT DETECTED 08/29/21 01:13 Nasal Coronavir NL63 PCR NOT DETECTED 08/29/21 01:13 Nasal Coronavir OC43 PCR NOT DETECTED 08/29/21 01:13 Nasal Enterovir/Rhinovir PCR NOT DETECTED 08/29/21 01:13 Nasal Influenza B PCR NOT DETECTED 08/29/21 01:13 Nasal Influenza A PCR NOT DETECTED 08/29/21 01:13 Nasal Parainfluen 1 PCR NOT DETECTED 08/29/21 01:13 Nasal Parainfluen 2 PCR NOT DETECTED 08/29/21 01:13 Nasal Parainfluen 3 PCR NOT DETECTED 08/29/21 01:13 Nasal Parainfluen 4 PCR NOT DETECTED 08/29/21 01:13 Nasal RSV (PCR) NOT DETECTED 08/29/21 01:13 Nasal Screen MRSA (PCR) NEGATIVE (NEGATIVE) 08/29/21 09:15 Nasal B.pertussis DNA PCR NOT DETECTED 08/29/21 01:13 Nasal C.pneumoniae (PCR) NOT DETECTED 08/29/21 01:13 [place] Human Metapneumo PCR NOT DETECTED 08/29/21 01:13 Nasal M.pneumoniae (PCR) NOT DETECTED 08/29/21 01:13 Nasal SARS-CoV-2 (PCR) NOT DETECTED 08/29/21 01:13 Sepsis Event Note (H) - Evaluation Current Stage of Sepsis: Resolved Possible source of Sepsis: positive: Genitourinary - Sepsis Criteria Sepsis Criteria: Recorded Heart Rate greater than 90 bpm, WBC count greater than 10% bands, WBC count greater than 12,000 or less than 4000, SBP less than 90 mmHg, Metabolic: lactate > 2 mmol/L ABX Reporting Has patient been on IV antibiotics over the past 48 hours?: Yes Current Medications - Current Medications Current Medications: Active Medications Acetaminophen (Acetaminophen 325 Mg Tablet) 650 mg PO Q4HR PRN PRN Reason: Pain 1 to 4, or Fever Last Admin: 08/29/21 12:52 Dose: 650 mg Hydrocodone Bitart/Acetaminophen (Hydrocod/Acetam 10 Mg/325 Mg Tablet) 1 tab PO 5XD PRN PRN Reason: PAIN Last Admin: 08/31/21 19:31 Dose: 1 tab Albuterol (Albuterol Neb 2.5 Mg/3 Ml) 2.5 mg INH Q4HR PRN PRN Reason: Wheezing Albuterol/Ipratropium (Ipratropium/Albuterol 3 Ml Neb) 3 ml INH BID [facility] Last Admin: 08/31/21 21:59 Dose: 3 ml Gabapentin (Gabapentin 300 Mg Capsule) 300 mg PO BID [facility] Last Admin: 08/31/21 21:48 Dose: 300 mg Heparin Sodium (Porcine) (Heparin 5,000 Unit/Ml Vial) 5,000 unit SUBQ BID [facility] Last Admin: 08/31/21 21:48 Dose: 5,000 unit Cefepime HCl 2 gm/ Sodium (Chloride) 100 mls @ 200 mls/hr IV Q12H [facility] Last Infusion: 09/01/21 02:05 Dose: Infused Sodium Chloride (Normal Saline 0.9%) 500 mls @ 20 mls/hr IV Q24H PRN PRN Reason: TKO RATE Last Infusion: 08/30/21 15:00 Dose: Infused Insulin Aspart (Insulin Aspart 300 Unit/3 Ml Pen) 2 - 10 unit SUBQ 0800,1200,1700,2100 [facility]; Protocol Last Admin: 08/31/21 21:54 Dose: Not Given Insulin Aspart (Insulin Aspart 300 Unit/3 Ml Pen) 5 unit SUBQ TIDWM [facility]; Protocol Last Admin: 08/31/21 21:32 Dose: Not Given Insulin Glargine (Insulin Glargine 300 Unit/3 Ml Pen) 15 unit SUBQ QDBREAKFAST [facility] Last Admin: 08/31/21 22:08 Dose: 15 unit Insulin Glargine (Insulin Glargine 300 Unit/3 Ml Pen) 15 unit SUBQ QPM [facility] Last Admin: 08/31/21 22:22 Dose: 15 unit Lorazepam (Lorazepam 1 Mg Tablet) 1 mg PO Q6H PRN PRN Reason: Anxiety Last Admin: 08/31/21 20:15 Dose: 1 mg Montelukast Sodium (Montelukast 10 Mg Tablet) 10 mg PO QPM [facility] Last Admin: 08/31/21 21:48 Dose: 10 mg Ondansetron HCl (Ondansetron Odt 4 Mg Tablet) 4 mg TL Q6HR PRN PRN Reason: Nausea / Vomiting Ondansetron HCl (Ondansetron 4 Mg/2 Ml Vial) 4 mg IVP Q6HR PRN PRN Reason: Nausea / Vomiting Prednisone (Prednisone 10 Mg Tablet) 10 mg PO DAILYWM [facility] Last Admin: 08/31/21 08:20 Dose: 10 mg Sodium Chloride (Sodium Chloride Flush 0.9% 10 Ml Syringe) 10 ml IVP 0100,0900,1700 [facility] Last Admin: 08/31/21 22:23 Dose: 10 ml Sodium Chloride (Sodium Chloride Flush 0.9% 10 Ml Syringe) 10 ml IVP PRN PRN PRN Reason: NEEDED PER PROVIDER ORDERS Last Admin: 08/31/21 12:49 Dose: 10 ml Hydrocodone/Acetaminophen [Hydrocodone-Acetamin 10-325 mg] 1 tab PO 5XD PRN MDD 4000mg aceteminophen 11/08/17 Albuterol Sulfate [Proair Respiclick] 2 puffs INH Q4H PRN 08/29/21 Gabapentin [Neurontin] 300 mg PO BID 08/29/21 Ipratropium/Albuterol [Duoneb] 3 ml INH BID 08/29/21 Torsemide 10 - 20 mg PO DAILY 08/29/21 predniSONE [Prednisone] 10 mg PO DAILYWM 08/29/21
[2021-09-01] MEDS: IPRATROPIUM/ALBUTEROL 3 ML NEB INH SCH ×2 (08:59→20:46)
[2021-09-01] MEDS: INSULIN ASPART 300 UNIT/3 ML PEN SUBQ SCH ×7 (09:37→21:11)
[2021-09-01] MEDS: INSULIN GLARGINE 300 UNIT/3 ML PEN SUBQ SCH ×2 (09:39→21:10)
[2021-09-01] MEDS: HYDROcod/ACETAM 10 MG/325 MG TABLET PO PRN ×2 (10:05→23:07)
[2021-09-01] MEDS: predniSONE 10 MG TABLET PO SCH (10:06)
[2021-09-01] MEDS: polyethylene glycoL 3350 17 GM PACKET PO SCH (10:06)
[2021-09-01] MEDS: SODIUM CHLORIDE FLUSH 0.9% 10 ML SYRINGE IVP SCH ×2 (10:06→16:47)
[2021-09-01] MEDS: GABAPENTIN 300 MG CAPSULE PO SCH ×2 (10:06→21:11)
[2021-09-01] MEDS: HEPARIN 5,000 UNIT/ML VIAL SUBQ SCH ×2 (10:15→21:07)
[2021-09-01] MEDS ORDERED: ZINC OXIDE 20% OINT 30 GM TUBE TOP PRN (10:29)
[2021-09-01] MEDS ORDERED: MIN OIL/DIMETHICON/COCONUT OIL 92 GM TUBE TOP PRN (10:29)
[2021-09-01] MEDS: MONTELUKAST 10 MG TABLET PO SCH (21:11)
[2021-09-02] MEDS: CEFEPIME 2 GM in SODIUM CHLORIDE 0.9% MINIBAG 100 ML IV SCH ×2 (01:16→12:31)
[2021-09-02] MEDS: SODIUM CHLORIDE FLUSH 0.9% 10 ML SYRINGE IVP SCH ×3 (01:16→17:41)
[2021-09-02 05:31] LABS: BASOPHILS % (AUTO) 0.6 %; EOSINOPHILS % (AUTO) 0.2 %; HCT - HEMATOCRIT 29.8 % (42.0-52.0); HGB - HEMOGLOBIN 9.4 g/dL (14.0-18.0); LYMPHOCYTES % (AUTO) 9.1 %; MEAN CORPUSCULAR HEMOGLOBIN 29.4 pg (27.0-31.0); MEAN CORPUSCULAR HGB CONC 31.5 g/dL (32.0-36.0); MEAN CORPUSCULAR VOLUME 93.1 fL (80.0-94.0); MEAN PLATELET VOLUME 10.2 fL (7.4-11.4); MONOCYTES % (AUTO) 6.4 %; NEUTROPHILS % (AUTO) 72.7 %; PLT - PLATELET COUNT 149 10^3/uL (130-450); RED CELL DISTRIBUTION WIDTH 15.4 % (12.0-15.0); WHITE BLOOD COUNT 16.8 x10^3/uL (4.8-10.8)
[2021-09-02 05:43] LABS: ABNORMAL LYMPHS % (MANUAL) 0 %; BAND NEUTROPHILS % (MANUAL) 0 %
[2021-09-02 05:48] LABS: CALCIUM 8.5 mg/dL (8.5-10.3); CREATININE 1.5 mg/dL (0.6-1.2); POTASSIUM 4.3 mmol/L (3.5-5.0)
[2021-09-02 05:54] LABS: LYMPHOCYTES # (MANUAL) 0.7 10^3/uL (1.5-3.5); LYMPHOCYTES % (MANUAL) 4 %; MONOCYTES # (MANUAL) 1.2 10^3/uL (0.0-1.0); MYELOCYTES % (MANUAL) 3 %; NEUTROPHILS # (MANUAL) 14.4 10^3/uL (1.5-6.6)
[2021-09-02 05:55] LABS: DIFFERENTIAL COMMENT MANUAL DIFFERENTIAL; PLATELET ESTIMATE, MANUAL NORMAL (130-450,000) (NORMAL); PLATELET MORPHOLOGY NORMAL APPEARANCE (NORMAL); RBC MORPHOLOGY (MULTIPLE) NORMAL APPEARANCE (NORMAL); WBC MORPHOLOGY (MULTIPLE) NORMAL APPEARANCE (NORMAL)
--- NOTE | 2021-09-02 07:27 | PROVIDER PROGRESS NOTE ---
Assessment/Plan - Problem List (1) Sepsis Qualifiers: Sepsis type: sepsis due to unspecified organism Sepsis acute organ dysfunction status: without acute organ dysfunction Qualified Code(s): A41.9 - Sepsis, unspecified organism Assessment/Plan: Has resolved. Likely due to UTI from urostomy tube. Blood cultures grew Klebsiella. Will continue to treat with cefipime. Family wants patient to d/c soon and continue abx at home. Hope to d/c in next couple days with PO abx. WBC continues to improve. 16.8 today and 40.3 at admission. Renal function continues to improve, creatinine 1.5 today and 1.9 at admission. (2) COPD exacerbation Assessment/Plan: Improved with nebs and steroids. Now 98% on 1L. Continue duoneb bid and albuterol prn. Montelukast every evening and po prednisone 10mg with meals. (3) Diabetes mellitus type 2, uncontrolled, with complications Assessment/Plan: New diagnosis while in hospital. HbA1C 11.4%. On Lantus 15 qpm, Novolog 5u bid with meals and Novolog sliding scale. D5+1/2NS initiated at 75ml/hr due to blood glucose of 62 this morning. Pt family plan to meet with primitivo Mcintosh, for diabetes education today. Gabapentin 300 bid (4) BAIRON (acute kidney injury) Assessment/Plan: Likely secondary to sepsis and UTI. Creatinine continues to improve. Today it was 1.5 and it was 1.9 at admission. Was receiving IV hydration but has been held due to lower extremity edema. Continue to monitor renal function. (5) Senescence Assessment/Plan: Patient has strong support of son and [id number] at home. End of life care conference was family was done on 08/30 and POLST completed. Palliative care referral made. Patient and family's goal is to focus on comfort. (6) Cor pulmonale Assessment/Plan: Right sided HF s/t COPD. Pt fluid overloaded, 2+ pitting edema, wet lungs. Torsemide resumed - Current Meds Current Meds: Current Medications Generic Name Dose Route Start Last Admin Trade Name Freq PRN Reason Stop Dose Admin Acetaminophen 650 mg 08/29/21 06:32 08/29/21 12:52 Acetaminophen 325 Mg Tablet PO 650 mg Q4HR PRN Administration Pain 1 to 4, or Fever Hydrocodone Bitart/Acetaminophen 1 tab 08/29/21 14:44 09/01/21 23:07 Hydrocod/Acetam 10 Mg/325 Mg Tablet PO 1 tab 5XD PRN Administration PAIN Albuterol/Ipratropium 3 ml 08/29/21 21:00 09/01/21 20:46 Ipratropium/Albuterol 3 Ml Neb INH 3 ml BID REBECCA Administration Gabapentin 300 mg 08/29/21 21:00 09/01/21 21:11 Gabapentin 300 Mg Capsule PO Not Given BID REBECCA Heparin Sodium (Porcine) 5,000 unit 08/29/21 09:00 09/01/21 21:07 Heparin 5,000 Unit/Ml Vial SUBQ 5,000 unit BID REBECCA Administration Cefepime HCl 2 gm/ Sodium 100 mls @ 200 mls/hr 08/29/21 13:00 09/02/21 02:10 Chloride IV Infused Q12H REBECCA Infusion Sodium Chloride 500 mls @ 20 mls/hr 08/29/21 20:08 08/30/21 15:00 Normal Saline 0.9% IV Infused Q24H PRN Infusion TKO RATE Insulin Aspart 2 - 10 unit 08/29/21 21:00 09/01/21 21:11 Insulin Aspart 300 Unit/3 Ml Pen SUBQ Not Given 0800,1200,1700,2100 [facility] Protocol Insulin Aspart 5 unit 08/30/21 12:00 09/01/21 16:46 Insulin Aspart 300 Unit/3 Ml Pen SUBQ Not Given TIDWM [facility] Protocol Insulin Glargine 15 unit 09/01/21 08:00 09/01/21 09:39 Insulin Glargine 300 Unit/3 Ml Pen SUBQ 15 unit QDBREAKFAST REBECCA Administration Insulin Glargine 15 unit 08/31/21 21:00 09/01/21 21:10 Insulin Glargine 300 Unit/3 Ml Pen SUBQ 15 unit QPM REBECCA Administration Lorazepam 1 mg 08/30/21 19:25 08/31/21 20:15 Lorazepam 1 Mg Tablet PO 1 mg Q6H PRN Administration Anxiety Montelukast Sodium 10 mg 08/29/21 21:00 09/01/21 21:11 Montelukast 10 Mg Tablet PO Not Given QPM [facility] Multi-Ingredient Ointment 1 applic 09/01/21 10:29 09/01/21 17:00 Zinc Oxide 20% Oint 30 Gm Tube TOP 1 applic PRN PRN Administration Skin Care Polyethylene Glycol 17 gm 09/01/21 10:00 09/01/21 10:06 Polyethylene Glycol 3350 17 Gm Packet PO 17 gm DAILY REBECCA Administration Prednisone 10 mg 08/29/21 15:00 09/01/21 10:06 Prednisone 10 Mg Tablet PO 10 mg DAILYWM REBECCA Administration Sodium Chloride 10 ml 08/29/21 09:00 09/02/21 01:16 Sodium Chloride Flush 0.9% 10 Ml Syringe IVP 10 ml 0100,0900,1700 REBECCA Administration Sodium Chloride 10 ml 08/29/21 06:32 08/31/21 12:49 Sodium Chloride Flush 0.9% 10 Ml Syringe IVP 10 ml PRN PRN Administration NEEDED PER PROVIDER ORDERS - Lab Result Fish Bone Diagrams: 09/02/21 05:01 09/02/21 05:08 - Additional Planning My Orders: My Active Orders 09/01/21 08:00 Insulin Glargine [Lantus Solostar] 15 unit SUBQ QDBREAKFAST 09/01/21 10:00 polyethylene glycoL 3350 [Miralax] 17 gm PO DAILY Subjective - Subjective Patient Reports: Other (Patient appears somnolent but readily arousable to verbal stimuli. Responds appropriately to questions asked. Blood glucose this morning was 62. Patient ate late 2 of his food yesterday because he slept possibly today. He intermittently cries out in pain but unable to tell location.) Objective Vital Signs: Vital Signs - 24 hr 09/01/21 09/01/21 09/01/21 07:33 09:00 15:38 Temperature 36.3 C L 37.0 C Heart Rate 104 H Heart Rate [ 99 110 H Brachial] Respiratory 18 14 16 Rate Blood Pressure 130/67 [Left Radial artery] Blood Pressure 109/56 L [Right Brachial artery] Blood Pressure [Right Radial artery] O2 Saturation 98 88 L 09/01/21 09/02/21 20:47 00:06 Temperature 36.5 C Heart Rate 94 Heart Rate [ 97 Brachial] Respiratory 16 12 Rate Blood Pressure [Left Radial artery] Blood Pressure [Right Brachial artery] Blood Pressure 120/58 L [Right Radial artery] O2 Saturation 94 Oxygen O2 Source Nasal cannula Oxygen Flow Rate 4 I&O (Last 24 Hrs): Intake and Output Totals x24h 08/31/21 09/01/21 09/02/21 23:59 23:59 23:59 Intake Total 2617.000 320 100 Output Total 19995 525 Balance 617.000 -1605 -425 General: Moderate distress, Other (Somnolent but arousable to verbal stimuli. Oriented x3.) HEENT: PERRLA, EOMI Neck: Supple, No JVD Neuro: Non Focal, Oriented Times 3 Cardiovascular: Regular rate, No murmurs Respiratory: Chest non-tender, No respiratory distress, Breath sounds nml Abdomen: Normal bowel sounds, Soft, No tenderness Extremities: Other Comments/Notes: blisters on left [place] - Results Results: Laboratory Results WBC 16.8 x10^3/uL (4.8-10.8) H 09/02/21 05:01 RBC 3.20 10^6/uL (4.70-6.10) L 09/02/21 05:01 Hgb 9.4 g/dL (14.0-18.0) L 09/02/21 05:01 Hct 29.8 % (42.0-52.0) L 09/02/21 05:01 MCV 93.1 fL (80.0-94.0) 09/02/21 05:01 MCH 29.4 pg (27.0-31.0) 09/02/21 05:01 MCHC 31.5 g/dL (32.0-36.0) L 09/02/21 05:01 RDW 15.4 % (12.0-15.0) H 09/02/21 05:01 Plt Count 149 10^3/uL (130-450) 09/02/21 05:01 MPV 10.2 fL (7.4-11.4) 09/02/21 05:01 Neut # (Auto) Not Reportable 09/02/21 05:01 Lymph # (Auto) Not Reportable 09/02/21 05:01 [place] # (Auto) Not Reportable 09/02/21 05:01 Eos # (Auto) Not Reportable 09/02/21 05:01 Baso # (Auto) Not Reportable 09/02/21 05:01 Absolute Nucleated RBC Not Reportable 09/02/21 05:01 Total Counted 100 09/02/21 05:01 Band Neuts % (Manual) 0 % (0-10) 09/02/21 05:01 Abnorm Lymph % (Manual) 0 % 09/02/21 05:01 Myelocytes % 3 % (-0) H 09/02/21 05:01 Nucleated RBC % Not Reportable 09/02/21 05:01 Neutrophils # (Manual) 14.4 10^3/uL (1.5-6.6) H 09/02/21 05:01 Lymphocytes # (Manual) 0.7 10^3/uL (1.5-3.5) L 09/02/21 05:01 Monocytes # (Manual) 1.2 10^3/uL (0.0-1.0) H 09/02/21 05:01 Eosinophils # (Manual) 0.0 10^3/uL (0-0.7) 09/02/21 05:01 Basophils # (Manual) 0.0 10^3/uL (0-0.1) 09/02/21 05:01 Differential Comment MANUAL DIFFERENTIAL 09/02/21 05:01 WBC Morphology NORMAL APPEARANCE (NORMAL) 09/02/21 05:01 Platelet Estimate NORMAL (130-450,000) (NORMAL) 09/02/21 05:01 Platelet Morphology NORMAL APPEARANCE (NORMAL) 09/02/21 05:01 RBC Morph Micro Appear NORMAL APPEARANCE (NORMAL) 09/02/21 05:01 PT 13.4 secs (9.9-12.6) H 08/29/21 01:13 INR 1.2 (0.8-1.2) 08/29/21 01:13 APTT 27.4 secs (24.9-33.3) 08/29/21 01:13 VBG pH 7.143 (7.31-7.41) L 09/01/21 04:35 Ionized Calcium 1.22 mmol/L (1.15-1.33) 09/01/21 04:35 Sodium 143 mmol/L (135-145) 09/02/21 05:08 Potassium 4.3 mmol/L (3.5-5.0) 09/02/21 05:08 Chloride 118 mmol/L (101-111) H 09/02/21 05:08 Carbon Dioxide 19 mmol/L (21-32) L 09/02/21 05:08 Anion Gap 6.0 (6-13) 09/02/21 05:08 BUN 47 mg/dL (6-20) H 09/02/21 05:08 Creatinine 1.5 mg/dL (0.6-1.2) H 09/02/21 05:08 Estimated GFR (MDRD) 45 (>89) L 09/02/21 05:08 Glucose 72 mg/dL (70-100) 09/02/21 05:08 Estimat Average Glucose 280 mg/dL (70-100) H 08/29/21 06:49 Hemoglobin A1c % 11.4 % (4.27-6.07) H 08/29/21 06:49 Lactic Acid 1.9 mmol/L (0.5-2.2) 08/29/21 22:50 Calcium 8.5 mg/dL (8.5-10.3) 09/02/21 05:08 Phosphorus 4.5 mg/dL (2.5-4.6) 08/30/21 05:15 Magnesium 1.8 mg/dL (1.7-2.8) 08/30/21 05:15 Total Bilirubin 1.1 mg/dL (0.2-1.0) H 08/29/21 01:13 AST 44 IU/L (10-42) H 08/29/21 01:13 ALT 40 IU/L (10-60) 08/29/21 01:13 Alkaline Phosphatase 97 IU/L (42-121) 08/29/21 01:13 Troponin I High Sens 57.6 ng/L (2.3-19.7) H* 08/29/21 06:49 C-Reactive Protein 24.5 mg/dL (0-1.0) H 08/29/21 06:49 B-Natriuretic Peptide 274 pg/mL (5-100) H 08/29/21 01:13 Total Protein 6.6 g/dL (6.7-8.2) L 08/29/21 01:13 Albumin 2.8 g/dL (3.2-5.5) L 08/29/21 01:13 Globulin 3.8 g/dL (2.1-4.2) 08/29/21 01:13 Albumin/Globulin Ratio 0.7 (1.0-2.2) L 08/29/21 01:13 Lipase 25 U/L (22-51) 08/29/21 01:13 Urine Color YELLOW 08/29/21 01:14 Urine Clarity CLOUDY (CLEAR) 08/29/21 01:14 Urine pH 7.0 PH (5.0-7.5) 08/29/21 01:14 Ur Specific [place] 1.020 (1.002-1.030) 08/29/21 01:14 Urine Protein 100 mg/dL (NEGATIVE) H 08/29/21 01:14 Urine Glucose (UA) 500 mg/dL (NEGATIVE) H 08/29/21 01:14 Urine Ketones NEGATIVE mg/dL (NEGATIVE) 08/29/21 01:14 Urine Occult Blood LARGE (NEGATIVE) H 08/29/21 01:14 Urine Nitrite NEGATIVE (NEGATIVE) 08/29/21 01:14 Urine Bilirubin NEGATIVE (NEGATIVE) 08/29/21 01:14 Urine Urobilinogen 0.2 (NORMAL) E.U./dL (NORMAL) 08/29/21 01:14 Ur Leukocyte Esterase MODERATE (NEGATIVE) H 08/29/21 01:14 Urine RBC 6-10 /HPF (0-5) H 08/29/21 01:14 Urine WBC >25 /HPF (0-3) H 08/29/21 01:14 Ur Squamous Epith Cells NONE SEEN (<= Few) 08/29/21 01:14 Urine Bacteria Many /HPF (None Seen) H 08/29/21 01:14 Ur Microscopic Review INDICATED 08/29/21 01:14 Urine Culture Comments INDICATED 08/29/21 01:14 Nasal Adenovirus (PCR) NOT DETECTED 08/29/21 01:13 Nasal B. parapertussis DNA (PCR) NOT DETECTED 08/29/21 01:13 Nasal Coronavir 229E PCR NOT DETECTED 08/29/21 01:13 Nasal Coronavir HKU1 PCR NOT DETECTED 08/29/21 01:13 Nasal Coronavir NL63 PCR NOT DETECTED 08/29/21 01:13 Nasal Coronavir OC43 PCR NOT DETECTED 08/29/21 01:13 Nasal Enterovir/Rhinovir PCR NOT DETECTED 08/29/21 01:13 Nasal Influenza B PCR NOT DETECTED 08/29/21 01:13 Nasal Influenza A PCR NOT DETECTED 08/29/21 01:13 Nasal Parainfluen 1 PCR NOT DETECTED 08/29/21 01:13 Nasal Parainfluen 2 PCR NOT DETECTED 08/29/21 01:13 Nasal Parainfluen 3 PCR NOT DETECTED 08/29/21 01:13 Nasal Parainfluen 4 PCR NOT DETECTED 08/29/21 01:13 Nasal RSV (PCR) NOT DETECTED 08/29/21 01:13 Nasal Screen MRSA (PCR) NEGATIVE (NEGATIVE) 08/29/21 09:15 Nasal B.pertussis DNA PCR NOT DETECTED 08/29/21 01:13 Nasal C.pneumoniae (PCR) NOT DETECTED 08/29/21 01:13 [place] Human Metapneumo PCR NOT DETECTED 08/29/21 01:13 Nasal M.pneumoniae (PCR) NOT DETECTED 08/29/21 01:13 Nasal SARS-CoV-2 (PCR) NOT DETECTED 08/29/21 01:13 - Procedures Procedures: +1 lower extremity edema Sepsis Event Note (H) - Evaluation Current Stage of Sepsis: Resolved Possible source of Sepsis: positive: Genitourinary - Sepsis Criteria Sepsis Criteria: Recorded Heart Rate greater than 90 bpm, WBC count greater than 10% bands, WBC count greater than 12,000 or less than 4000, SBP less than 90 mmH g, Metabolic: lactate > 2 mmol/L ABX Reporting Has patient been on IV antibiotics over the past 48 hours?: Yes
[2021-09-02] MEDS: IPRATROPIUM/ALBUTEROL 3 ML NEB INH SCH ×2 (08:24→20:46)
[2021-09-02] MEDS: predniSONE 10 MG TABLET PO SCH (09:00)
[2021-09-02] MEDS: HYDROcod/ACETAM 10 MG/325 MG TABLET PO PRN (09:00)
[2021-09-02] MEDS: HEPARIN 5,000 UNIT/ML VIAL SUBQ SCH ×2 (09:00→21:02)
[2021-09-02] MEDS: GABAPENTIN 300 MG CAPSULE PO SCH ×2 (09:00→21:08)
[2021-09-02] MEDS: polyethylene glycoL 3350 17 GM PACKET PO SCH (09:00)
[2021-09-02] MEDS: DEXTROSE 5%-0.45% NACL 1,000 ML IV SCH ×2 (09:14→21:08)
[2021-09-02] MEDS: INSULIN ASPART 300 UNIT/3 ML PEN SUBQ SCH ×7 (09:14→21:08)
--- NOTE | 2021-09-02 13:42 | XRAY Report ---
PROCEDURE: Hip w/Pelvis 1V LT INDICATIONS: fell TECHNIQUE: AP pelvis with lateral view(s) of the left hip(s). COMPARISON: None. FINDINGS: Image quality degraded by patient body habitus. Bones: No fractures or dislocations. Pelvic ring appears intact. No suspicious bony lesions. Soft tissues: The visualized bowel gas pattern is normal. No suspicious soft tissue calcifications. Prostate radiotherapy seeds. Multiple surgical clips in the pelvis likely related to prior pelvic l ymph node dissection. IMPRESSION: No fracture. No acute osseous lesion. If symptoms and/or clinical concern for pathology persists, further assessment with repeat plain film radiographs (7-10 days) or advanced imaging (CT, MR, bone scan) should be considered. Reviewed by: Melissa Parkinsno MD, PhD on 09/02/2021 1:41 PM PDT Approved by: Melissa Parkinson MD, PhD on 09/02/2021 1:41 PM PDT Station ID: [id number]
[2021-09-02 13:54] LABS: ABG HCO3 17.8 mmol/L (22.0-26.0); ABG OXYGEN SATURATION 99 % (94-98); ABG PCO2 35 mmHg (34-45); ABG PH 7.31 (7.35-7.45); ALLEN TEST POSITIVE
[2021-09-02 13:57] LABS: ABG PO2 168 mmHg (80-100)
[2021-09-02] MEDS ORDERED: HALOPERIDOL 5 MG/ML VIAL IVP PRN (19:52)
[2021-09-02] MEDS ORDERED: SCOPOLAMINE PATCH TOP SCH (20:00)
[2021-09-02] MEDS ORDERED: INSULIN GLARGINE 300 UNIT/3 ML PEN SUBQ SCH (21:00)
[2021-09-02] MEDS: MORPHINE 2 MG/ML CARPUJECT IVP PRN (21:07)
[2021-09-02] MEDS: MONTELUKAST 10 MG TABLET PO SCH (21:08)
[2021-09-03] MEDS: SODIUM CHLORIDE FLUSH 0.9% 10 ML SYRINGE IVP SCH ×2 (00:15→11:04)
[2021-09-03 05:55] LABS: CALCIUM 8.5 mg/dL (8.5-10.3); CREATININE 1.2 mg/dL (0.6-1.2); POTASSIUM 3.5 mmol/L (3.5-5.0)
[2021-09-03 05:58] LABS: BASOPHILS % (AUTO) 0.1 %; EOSINOPHILS % (AUTO) 0.9 %; HGB - HEMOGLOBIN 9.8 g/dL (14.0-18.0); LYMPHOCYTES % (AUTO) 8.4 %; MEAN CORPUSCULAR HEMOGLOBIN 29.2 pg (27.0-31.0); MEAN CORPUSCULAR HGB CONC 31.6 g/dL (32.0-36.0); MEAN CORPUSCULAR VOLUME 92.3 fL (80.0-94.0); MEAN PLATELET VOLUME 10.3 fL (7.4-11.4); MONOCYTES % (AUTO) 6.5 %; NEUTROPHILS % (AUTO) 66.3 %; PLT - PLATELET COUNT 206 10^3/uL (130-450); RED BLOOD COUNT 3.36 10^6/uL (4.70-6.10); RED CELL DISTRIBUTION WIDTH 15.5 % (12.0-15.0); WHITE BLOOD COUNT 19.5 x10^3/uL (4.8-10.8)
[2021-09-03 06:11] LABS: ABNORMAL LYMPHS % (MANUAL) 0 %
[2021-09-03] MEDS: MORPHINE 2 MG/ML CARPUJECT IVP PRN ×3 (06:32→13:41)
[2021-09-03 06:38] LABS: BAND NEUTROPHILS % (MANUAL) 1 %; DIFFERENTIAL COMMENT MANUAL DIFFERENTIAL; EOSINOPHILS # (MANUAL) 0.2 10^3/uL (0-0.7); LYMPHOCYTES # (MANUAL) 2.5 10^3/uL (1.5-3.5); LYMPHOCYTES % (MANUAL) 13 %; METAMYELOCYTES % (MANUAL) 1 %; MONOCYTES # (MANUAL) 0.8 10^3/uL (0.0-1.0); MYELOCYTES % (MANUAL) 13 %; NEUTROPHILS # (MANUAL) 13.3 10^3/uL (1.5-6.6); NUCLEATED RBC (MANUAL) 2 %; PLATELET ESTIMATE, MANUAL NORMAL (130-450,000) (NORMAL); PLATELET MORPHOLOGY NORMAL APPEARANCE (NORMAL); RBC MORPHOLOGY (MULTIPLE) NORMAL APPEARANCE (NORMAL); WBC MORPHOLOGY (MULTIPLE) NORMAL APPEARANCE (NORMAL)
--- NOTE | 2021-09-03 07:37 | PROVIDER PROGRESS NOTE ---
Assessment/Plan - Problem List (1) Sepsis Qualifiers: Sepsis type: sepsis due to unspecified organism Sepsis acute organ dysfunction status: without acute organ dysfunction Qualified Code(s): A41.9 - Sepsis, unspecified organism - Current Meds Current Meds: Current Medications Generic Name Dose Route Start Last Admin Trade Name Freq PRN Reason Stop Dose Admin Acetaminophen 650 mg 08/29/21 06:32 08/29/21 12:52 Acetaminophen 325 Mg Tablet PO 650 mg Q4HR PRN Administration Pain 1 to 4, or Fever Hydrocodone Bitart/Acetaminophen 1 tab 08/29/21 14:44 09/02/21 09:00 Hydrocod/Acetam 10 Mg/325 Mg Tablet PO 1 tab 5XD PRN Administration PAIN Albuterol/Ipratropium 3 ml 08/29/21 21:00 09/02/21 20:46 Ipratropium/Albuterol 3 Ml Neb INH 3 ml BID REBECCA Administration Gabapentin 300 mg 08/29/21 21:00 09/02/21 21:08 Gabapentin 300 Mg Capsule PO Not Given BID REBECCA Heparin Sodium (Porcine) 5,000 unit 08/29/21 09:00 09/02/21 21:02 Heparin 5,000 Unit/Ml Vial SUBQ 5,000 unit BID REBECCA Administration Sodium Chloride 500 mls @ 20 mls/hr 08/29/21 20:08 08/30/21 15:00 Normal Saline 0.9% IV Infused Q24H PRN Infusion TKO RATE Dextrose/Sodium Chloride 1,000 mls @ 75 mls/hr 09/02/21 08:00 09/02/21 21:08 D5.45ns IV 75 mls/hr .[id number] REBECCA Administration Insulin Aspart 2 - 10 unit 08/29/21 21:00 09/02/21 21:08 Insulin Aspart 300 Unit/3 Ml Pen SUBQ Not Given 0800,1200,1700,2100 [facility] Protocol Insulin Aspart 5 unit 08/30/21 12:00 09/02/21 17:40 Insulin Aspart 300 Unit/3 Ml Pen SUBQ Not Given TIDWM [facility] Protocol Insulin Glargine 10 unit 09/02/21 21:00 09/02/21 21:07 Insulin Glargine 300 Unit/3 Ml Pen SUBQ 10 unit QPM REBECCA Administration Lorazepam 1 mg 08/30/21 19:25 08/31/21 20:15 Lorazepam 1 Mg Tablet PO 1 mg Q6H PRN Administration Anxiety Montelukast Sodium 10 mg 08/29/21 21:00 09/02/21 21:08 Montelukast 10 Mg Tablet PO Not Given QPM REBECCA Morphine Sulfate 2 mg 09/02/21 19:52 09/03/21 06:32 Morphine 2 Mg/Ml Carpuject IVP 2 mg Q6HR PRN Administration Pain or Shortness of air Multi-Ingredient Ointment 1 applic 09/01/21 10:29 09/01/21 17:00 Zinc Oxide 20% Oint 30 Gm Tube TOP 1 applic PRN PRN Administration Skin Care Polyethylene Glycol 17 gm 09/01/21 10:00 09/02/21 09:00 Polyethylene Glycol 3350 17 Gm Packet PO 17 gm DAILY REBECCA Administration Prednisone 10 mg 08/29/21 15:00 09/02/21 09:00 Prednisone 10 Mg Tablet PO 10 mg DAILYWM REBECCA Administration Scopolamine HBr 1 patch 09/02/21 20:00 09/02/21 21:05 Scopolamine Patch TOP 1 patch Q3D REBECCA Administration Sodium Chloride 10 ml 08/29/21 09:00 09/03/21 00:15 Sodium Chloride Flush 0.9% 10 Ml Syringe IVP 10 ml 0100,0900,1700 REBECCA Administration Sodium Chloride 10 ml 08/29/21 06:32 08/31/21 12:49 Sodium Chloride Flush 0.9% 10 Ml Syringe IVP 10 ml PRN PRN Administration NEEDED PER PROVIDER ORDERS - Lab Result Fish Bone Diagrams: 09/03/21 05:25 09/03/21 05:25 - Additional Planning My Orders: My Active Orders 09/02/21 08:00 Dextrose 5%-0.45% NaCl [D5.45ns] 1,000 ml IV 75 mls/hr 09/02/21 11:17 Palliative Care Referral [RC] ONCE 09/02/21 19:52 Comfort Care [RC] QSHIFT Haloperidol Inj [Haldol Inj] 0.5 mg IVP Q6H PRN Morphine Inj (Carpuject) [Morphine (Carpuject)] 2 mg IVP Q6HR PRN 09/02/21 20:00 Scopolamine Patch [Transderm-Scop] 1 patch TOP Q3D 09/02/21 21:00 Insulin Glargine [Lantus Solostar] 10 unit SUBQ QPM 09/03/21 08:00 Hospice Referral for Post-Discharge Services [CONS] Routine 09/03/21 09:00 Torsemide 10 mg PO DAILY cefTRIAXone [Rocephin] 2 gm Sodium Chloride 0.9% Minibag [Normal Saline 0.9% Minibag] 100 ml IV DAILY Objective Vital Signs: Vital Signs - 24 hr 09/02/21 09/02/21 09/02/21 08:26 15:38 20:47 Temperature 36.4 C L Heart Rate 100 86 Heart Rate [ 86 Brachial] Respiratory 24 16 18 Rate Blood Pressure 117/56 L [Right Radial artery] O2 Saturation 96 09/03/21 00:05 Temperature 36.3 C L Heart Rate Heart Rate [ 92 Brachial] Respiratory 16 Rate Blood Pressure 150/70 H [Right Radial artery] O2 Saturation 97 Oxygen O2 Source Nasal cannula Oxygen Flow Rate 4 I&O (Last 24 Hrs): Intake and Output Totals x24h 09/01/21 09/02/21 09/03/21 23:59 23:59 23:59 Intake Total 320 1332.5 50 Output Total 1925 1925 1475 Balance -1605 -592.5 -1425 - Results Results: Laboratory Results WBC 19.5 x10^3/uL (4.8-10.8) H 09/03/21 05:25 RBC 3.36 10^6/uL (4.70-6.10) L 09/03/21 05:25 Hgb 9.8 g/dL (14.0-18.0) L 09/03/21 05:25 Hct 31.0 % (42.0-52.0) L 09/03/21 05:25 MCV 92.3 fL (80.0-94.0) 09/03/21 05:25 MCH 29.2 pg (27.0-31.0) 09/03/21 05:25 MCHC 31.6 g/dL (32.0-36.0) L 09/03/21 05:25 RDW 15.5 % (12.0-15.0) H 09/03/21 05:25 Plt Count 206 10^3/uL (130-450) 09/03/21 05:25 MPV 10.3 fL (7.4-11.4) 09/03/21 05:25 Neut # (Auto) Not Reportable 09/03/21 05:25 Lymph # (Auto) Not Reportable 09/03/21 05:25 [place] # (Auto) Not Reportable 09/03/21 05:25 Eos # (Auto) Not Reportable 09/03/21 05:25 Baso # (Auto) Not Reportable 09/03/21 05:25 Absolute Nucleated RBC Not Reportable 09/03/21 05:25 Total Counted 100 09/03/21 05:25 Band Neuts % (Manual) 1 % (0-10) 09/03/21 05:25 Abnorm Lymph % (Manual) 0 % 09/03/21 05:25 Metamyelocytes % 1 % (-0) H 09/03/21 05:25 Myelocytes % 13 % (-0) H 09/03/21 05:25 Nucleated RBC % Not Reportable 09/03/21 05:25 Neutrophils # (Manual) 13.3 10^3/uL (1.5-6.6) H 09/03/21 05:25 Lymphocytes # (Manual) 2.5 10^3/uL (1.5-3.5) 09/03/21 05:25 Monocytes # (Manual) 0.8 10^3/uL (0.0-1.0) 09/03/21 05:25 Eosinophils # (Manual) 0.2 10^3/uL (0-0.7) 09/03/21 05:25 Basophils # (Manual) 0.0 10^3/uL (0-0.1) 09/03/21 05:25 Nucleated RBCs 2 % 09/03/21 05:25 Differential Comment MANUAL DIFFERENTIAL 09/03/21 05:25 WBC Morphology NORMAL APPEARANCE (NORMAL) 09/03/21 05:25 Platelet Estimate NORMAL (130-450,000) (NORMAL) 09/03/21 05:25 Platelet Morphology NORMAL APPEARANCE (NORMAL) 09/03/21 05:25 RBC Morph Micro Appear NORMAL APPEARANCE (NORMAL) 09/03/21 05:25 PT 13.4 secs (9.9-12.6) H 08/29/21 01:13 INR 1.2 (0.8-1.2) 08/29/21 01:13 APTT 27.4 secs (24.9-33.3) 08/29/21 01:13 Bld Gas Analysis Time 1348 09/02/21 13:40 Sample Site RIGHT RADIAL 09/02/21 13:40 ABG pH 7.31 (7.35-7.45) L 09/02/21 13:40 ABG pCO2 35 mmHg (34-45) 09/02/21 13:40 ABG pO2 168 mmHg (80-100) H* 09/02/21 13:40 ABG HCO3 17.8 mmol/L (22.0-26.0) L 09/02/21 13:40 ABG Total CO2 19.0 MMOL/L (21.0-29.0) L 09/02/21 13:40 ABG O2 Saturation 99 % (94-98) H 09/02/21 13:40 ABG Base Excess -8.0 mmol/L (-2.0-3.0) L 09/02/21 13:40 Jw Test POSITIVE 09/02/21 13:40 VBG pH 7.143 (7.31-7.41) L 09/01/21 04:35 Ionized Calcium 1.22 mmol/L (1.15-1.33) 09/01/21 04:35 O2 Delivery Device NASAL CANNULA 09/02/21 13:40 O2 Liters/Min 2.00 LPM 09/02/21 13:40 Sodium 143 mmol/L (135-145) 09/03/21 05:25 Potassium 3.5 mmol/L (3.5-5.0) 09/03/21 05:25 Chloride 117 mmol/L (101-111) H 09/03/21 05:25 Carbon Dioxide 19 mmol/L (21-32) L 09/03/21 05:25 Anion Gap 7.0 (6-13) 09/03/21 05:25 BUN 40 mg/dL (6-20) H 09/03/21 05:25 Creatinine 1.2 mg/dL (0.6-1.2) 09/03/21 05:25 Estimated GFR (MDRD) 58 (>89) L 09/03/21 05:25 Glucose 109 mg/dL (70-100) H 09/03/21 05:25 Estimat Average Glucose 280 mg/dL (70-100) H 08/29/21 06:49 Hemoglobin A1c % 11.4 % (4.27-6.07) H 08/29/21 06:49 Lactic Acid 1.9 mmol/L (0.5-2.2) 08/29/21 22:50 Calcium 8.5 mg/dL (8.5-10.3) 09/03/21 05:25 Phosphorus 4.5 mg/dL (2.5-4.6) 08/30/21 05:15 Magnesium 1.8 mg/dL (1.7-2.8) 08/30/21 05:15 Total Bilirubin 1.1 mg/dL (0.2-1.0) H 08/29/21 01:13 AST 44 IU/L (10-42) H 08/29/21 01:13 ALT 40 IU/L (10-60) 08/29/21 01:13 Alkaline Phosphatase 97 IU/L (42-121) 08/29/21 01:13 Troponin I High Sens 57.6 ng/L (2.3-19.7) H* 08/29/21 06:49 C-Reactive Protein 24.5 mg/dL (0-1.0) H 08/29/21 06:49 B-Natriuretic Peptide 274 pg/mL (5-100) H 08/29/21 01:13 Total Protein 6.6 g/dL (6.7-8.2) L 08/29/21 01:13 Albumin 2.8 g/dL (3.2-5.5) L 08/29/21 01:13 Globulin 3.8 g/dL (2.1-4.2) 08/29/21 01:13 Albumin/Globulin Ratio 0.7 (1.0-2.2) L 08/29/21 01:13 Lipase 25 U/L (22-51) 08/29/21 01:13 Urine Color YELLOW 08/29/21 01:14 Urine Clarity CLOUDY (CLEAR) 08/29/21 01:14 Urine pH 7.0 PH (5.0-7.5) 08/29/21 01:14 Ur Specific [place] 1.020 (1.002-1.030) 08/29/21 01:14 Urine Protein 100 mg/dL (NEGATIVE) H 08/29/21 01:14 Urine Glucose (UA) 500 mg/dL (NEGATIVE) H 08/29/21 01:14 Urine Ketones NEGATIVE mg/dL (NEGATIVE) 08/29/21 01:14 Urine Occult Blood LARGE (NEGATIVE) H 08/29/21 01:14 Urine Nitrite NEGATIVE (NEGATIVE) 08/29/21 01:14 Urine Bilirubin NEGATIVE (NEGATIVE) 08/29/21 01:14 Urine Urobilinogen 0.2 (NORMAL) E.U./dL (NORMAL) 08/29/21 01:14 Ur Leukocyte Esterase MODERATE (NEGATIVE) H 08/29/21 01:14 Urine RBC 6-10 /HPF (0-5) H 08/29/21 01:14 Urine WBC >25 /HPF (0-3) H 08/29/21 01:14 Ur Squamous Epith Cells NONE SEEN (<= Few) 08/29/21 01:14 Urine Bacteria Many /HPF (None Seen) H 08/29/21 01:14 Ur Microscopic Review INDICATED 08/29/21 01:14 Urine Culture Comments INDICATED 08/29/21 01:14 Nasal Adenovirus (PCR) NOT DETECTED 08/29/21 01:13 Nasal B. parapertussis DNA (PCR) NOT DETECTED 08/29/21 01:13 Nasal Coronavir 229E PCR NOT DETECTED 08/29/21 01:13 Nasal Coronavir HKU1 PCR NOT DETECTED 08/29/21 01:13 Nasal Coronavir NL63 PCR NOT DETECTED 08/29/21 01:13 Nasal Coronavir OC43 PCR NOT DETECTED 08/29/21 01:13 Nasal Enterovir/Rhinovir PCR NOT DETECTED 08/29/21 01:13 Nasal Influenza B PCR NOT DETECTED 08/29/21 01:13 Nasal Influenza A PCR NOT DETECTED 08/29/21 01:13 Nasal Parainfluen 1 PCR NOT DETECTED 08/29/21 01:13 Nasal Parainfluen 2 PCR NOT DETECTED 08/29/21 01:13 Nasal Parainfluen 3 PCR NOT DETECTED 08/29/21 01:13 Nasal Parainfluen 4 PCR NOT DETECTED 08/29/21 01:13 Nasal RSV (PCR) NOT DETECTED 08/29/21 01:13 Nasal Screen MRSA (PCR) NEGATIVE (NEGATIVE) 08/29/21 09:15 Nasal B.pertussis DNA PCR NOT DETECTED 08/29/21 01:13 Nasal C.pneumoniae (PCR) NOT DETECTED 08/29/21 01:13 Apollo Human Metapneumo PCR NOT DETECTED 08/29/21 01:13 Nasal M.pneumoniae (PCR) NOT DETECTED 08/29/21 01:13 Nasal SARS-CoV-2 (PCR) NOT DETECTED 08/29/21 01:13 Sepsis Event Note (H) - Evaluation Current Stage of Sepsis: Resolved Possible source of Sepsis: positive: Genitourinary - Sepsis Criteria Sepsis Criteria: Recorded Heart Rate greater than 90 bpm, WBC count greater than 10% bands, WBC count greater than 12,000 or less than 4000, SBP less than 90 mmHg, Metabolic: lactate > 2 mmol/L
[2021-09-03] MEDS: HEPARIN 5,000 UNIT/ML VIAL SUBQ SCH (08:48)
[2021-09-03] MEDS: IPRATROPIUM/ALBUTEROL 3 ML NEB INH SCH (08:58)
[2021-09-03] MEDS ORDERED: TORSEMIDE 20 MG TABLET PO SCH (09:00)
[2021-09-03] MEDS ORDERED: cefTRIAXone 2 GM in SODIUM CHLORIDE 0.9% MINIBAG 100 ML IV SCH (09:00)
[2021-09-03] MEDS: INSULIN ASPART 300 UNIT/3 ML PEN SUBQ SCH ×4 (10:56→12:11)
--- NOTE | 2021-09-03 11:00 | DISCHARGE SUMMARY ---
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 Patient discharged on comfort care. Will be seen by hospice in the outpatient setting Hypoxemia: Acute on Chronic. Improved. 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 O2Sat 96% on 2L Senescence - HPI History of Present Illness: Patient is a 81 year old male with hx of COPD, asthma, prostate cancer, bladdder cancer, and chronic back pain. Pt presented to the ED earlier this AM for increasing shortness of breath. Per patient and patient's son, he has been increasingly dyspneic and has been needing to use home oxygen more frequently. Typically patient is able address shortness of breath with albuterol inhaler, but last night he was unable to get it under control. Pt does not report any chills, fevers, or cough. Pt does report having increased weakness, malaise, and weight gain. In the ED, patient was found to have an leukocytosis, elevated lactic acid, neutrophilia, hyponatremia, hypokalemia, anion gap of 18, hypocalcemia, elevated CRP, elevated glucose and urine positive for leukocytes, bacteria. Negative COVID. Pt was also tachycardic, and hypotensive. Pt was place d on 5 liters of oxygen via NC. - HOSPITAL COURSE Hospital Course: At time of admission white blood cell count was 40.3. Lactic acid was 6.9. He was hypotensive and tachycardic. IV fluids were initiated. Blood cultures and urine culture was drawn. Patient was started on empiric antibiotics with cefepime, vancomycin and Flagyl. Blood cultures grew Klebsiella. Urine culture grew Klebsiella, E. coli and Enterococcus faecalis. Vancomycin and Flagyl was discontinued. Patient's clinical condition appeared to improve from the first 2 days of hospital stay. White count dropped to 16.4 but then became elevated to 19 by the day of discharge. On the third day of hospital stay patient had an unwitnessed fall. CT head and neck and x-ray of the hips and pelvis were done and found to be negative for any acute processes or fractures. However the patient's clinical condition seem to deteriorate. He was very somnolent/lethargic from to 2 the day of discharge. On the day before discharge antibiotics were changed from cefepime to ceftriaxone. An excerpt from an ACP done on 08/30/21 states: "He is not a fairly vigorous life. 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 About a year and a half ago, his body started "breaking down" and he has been slowing down more and more. It is left him depressed, and increasingly frustrated by his bodies disability to just bounce back. Much of this has to do with his bladder cancer diagnosis. He is now using a scooter. Spends most of his time sedentary either in bed or in a chair. His daughter and son both describe that he still is part of their family. They will try and do things together, and have get-togethers so that he can enjoy life. He is very grateful to that. He loves his children. He is very happy they have been able to take care of him, but he no longer wants to proceed with doing interventions. He had them call EMS yesterday not so much for himself but for them. He was afraid that if something happened to him and he at home yesterday (which was his wish) that they would get in trouble for letting him at home. I asked his son and daughter if this is consistent with what he has told him in the past. With tears in their eyes both children state that he is consistently set this for the last few months. While he is not suicidal and has no plans on killing himself, he really actively is seeking palliative,/comfort measures only. If he had the ability to stay home yesterday and gradually from septic shock and not wake up he would have taken that option." On the day before discharge which was 09/02/21 patient's son requested for comfort care measures. A point of issue in the last few days of his hospital stay had been pain management. For the last 3 days the patient was very lethargic/slept throughout the day. As a result he did not eat and blood glucose as low as 62. D5 plus half normal saline was initiated at 75 mL/h. Insulin was discontinued. Each time the patient's family visited they felt his pain was not adequately managed however given the patient was asleep most of the day a conservative approach was taken to administration of benzodiazepines and pain medications. Patient's family was very upset about this. Patient was discharged on 09/03/21 on comfort measures. He was transferred home via EMS. The hospitalist service was contacted and will see the patient and admit him to their service on 09/07/21. In the interim the patient was prescribed Ativan, morphine and Sparks to be given in the oral form every 4 hours as needed. The family was educated on some expectations About comfort care. It was highlighted that all therapeutic measures will be discontinued and any medications continued will be directed to comfort only. They expressed understanding and were agreeable to the plan. - ALLERGIES Allergies/Adverse Reactions: Allergies Allergy/AdvReac Type Severity Reaction Status Date / Time Penicillins Allergy Unknown Verified 08/29/21 01:18 - MEDICATIONS Home Medications: Ambulatory Orders Medication Instructions Recorded Confirmed Montelukast [Singulair] 10 mg PO QPM #30 tablet 05/19/19 08/29/21 Albuterol Sulfate [Proair 2 puffs INH Q4H PRN 08/29/21 08/29/21 Respiclick] Gabapentin [Neurontin] 300 mg PO BID 08/29/21 08/29/21 Ipratropium/Albuterol [Duoneb] 3 ml INH BID 08/29/21 08/29/21 Hydrocodone/Acetaminophen 1 tab PO 5XD PRN #20 tab MDD 09/03/21 [Hydrocodone-Acetamin 10-325 mg] 4000mg aceteminophen LORazepam INJ [Ativan Inj (Vial)] 1 mg PO Q4HR PRN #25 ml 09/03/21 Morphine Oral Soln [Roxanol] 10 mg PO Q4H #50 ml 09/03/21 - PHYSICAL EXAM AT DISCHARGE General Appearance: positive: Moderate distress, Lethargic Eyes Bilateral: positive: PERRL, EOMI ENT: positive: No signs of dehydration Neck: positive: No JVD, Trachea midline Cardiovascular: positive: Regular rate & rhythm Abdomen: positive: Non-tender, Nml bowel sounds, No distention. negative: Guarding, Rebound Skin: positive: Other (rash/ blister on left [place]) Extremities: positive: Pedal edema (+2 pedal edema), Other (tenderness to hips and back when range of motion attempted) Neurologic/Psychiatric: positive: Other (arouses to name only) - LABS Result Diagrams: 09/03/21 05:25 09/03/21 05:25 - SEPSIS Current Stage of Sepsis: Resolved Possible source of Sepsis: Genitourinary Sepsis Criteria: Recorded Heart Rate greater than 90 bpm, WBC count greater than 10% bands, WBC count greater than 12,000 or less than 4000, SBP less than 90 mmHg, Metabolic: lactate > 2 mmol/L
[2021-09-03] MEDS: polyethylene glycoL 3350 17 GM PACKET PO SCH (11:01)
[2021-09-03] MEDS: predniSONE 10 MG TABLET PO SCH (11:02)
[2021-09-03] MEDS: GABAPENTIN 300 MG CAPSULE PO SCH (11:02)
--- NOTE | 2021-09-03 11:13 | Discharge Plan ---
Discharge Plan Problem Reviewed?: Yes Disposition: 50 Hospice/Home DC/Xfer Condition: Fair Prescriptions: LORazepam INJ [Ativan Inj (Vial)] 1 mg PO Q4HR PRN #25 ml PRN Reason: Anxiety Hydrocodone/Acetaminophen [Hydrocodone-Acetamin 10-325 mg] 1 tab PO 5XD PRN #20 tab MDD 4000mg aceteminophen PRN Reason: Pain Morphine Oral Soln [Roxanol] 10 mg PO Q4H #50 ml Diet: Soft Activity Restrictions: Activity as Tolerated Health Concerns: Patient was admitted on 08/29/21 with septic shock due to urinary tract infection. Antibiotics were started, blood and urine cultures obtained at time of admission subsequently grew Klebsiella. Antibiotics were maintained through the course of the hospital stay. Patient was also diagnosed with diabetes with a HgA1C of 11 during this hospital stay and was started on insulin. 3 days prior to discharge patient had an unwitnessed fall. This was worked up by CT of the brain, CT of the neck and subsequently x-rays of the hips and pelvis. These images were negative for any acute process. Patient's clinical condition seemed to worsen after 3 days of hospital stay He patient was discharged home on comfort measures. All medications for therapeutic purposes were discontinued. Medications prescribed and continued are directed for comfort only Patient was seen by speech therapy for swallow evaluation and recommendations were provided to family at bedside. The hospice service was contacted and will see the patient at home on 09/07/2021. Medications were ordered for management of pain and anxiety at home and the time before hospice admit the patient to their service. Morphine 10 mg per 0.5 mL was ordered to be given as 0.5 mL every 4 hours as needed for pain. The patient may also continue taking his home [place] which is 10/325 mg 5 times a day as needed. Ativan 2 mg/mL to take 0.5 mL every 4 hours as needed for anxiety. Patient's 24 hr care at home will be provided by family who are very involved in his care. The plan of care above was discussed with family who were agreeable to the plan. No Smoking: If you smoke, Please STOP! Call for help. Follow-up with: Melodie Patel MD [Primary Care Provider] -
[2021-09-03] MEDS: DEXTROSE 5%-0.45% NACL 1,000 ML IV SCH (11:15)
[2021-09-03] MEDS: HYDROcod/ACETAM 10 MG/325 MG TABLET PO PRN (12:16)
[2021-09-03] MEDS ORDERED: LORazepam 2 MG/ML VIAL IVP STA (13:21)
[2021-09-03 14:06] VITALS: BP 120/54
== END 2021-09-03 14:20 | disposition hospice, home (50) | DRG 871 ==
LOC: EDUNIT# → ED 00:57 → ICU 06:32 → MS3 08-30 20:57 → MS2 08-31 18:01
PROVIDERS: ADMIT Specialist; ATTEND Internal Medicine
DX: A41.9 Sepsis, unspecified organism (principal); A41.51 Sepsis due to Escherichia coli [E. coli]; R65.21 Severe sepsis with septic shock; N39.0 Urinary tract infection, site not specified; Z20.822 Contact with and (suspected) exposure to COVID-19; R19.00 Intra-abdominal and pelvic swelling, mass and lump, unspecified site; F17.200 Nicotine dependence, unspecified, uncomplicated; R10.819 Abdominal tenderness, unspecified site; T83.518A Infection and inflammatory reaction due to other urinary catheter, initial encounter; N17.9 Acute kidney failure, unspecified; E87.1 Hypo-osmolality and hyponatremia; J44.1 Chronic obstructive pulmonary disease with (acute) exacerbation; R09.02 Hypoxemia; R54 Age-related physical debility; E87.6 Hypokalemia; E83.51 Hypocalcemia; R51.9 Headache, unspecified; Z66 Do not resuscitate; E11.65 Type 2 diabetes mellitus with hyperglycemia; F32.A Depression, unspecified; C67.9 Malignant neoplasm of bladder, unspecified; S09.90XA Unspecified injury of head, initial encounter; W19.XXXA Unspecified fall, initial encounter; I27.81 Cor pulmonale (chronic); Y92.230 Patient room in hospital as the place of occurrence of the external cause; Z93.6 Other artificial openings of urinary tract status; Z99.81 Dependence on supplemental oxygen; Z51.5 Encounter for palliative care
CPT/HCPCS: 36415; 36600; 70450; 71045; 72125; 73501; 74176; 80048; 80053; 81001; 82330; 82803; 83036; 83605; 83690; 83735; 83880; 84100; 84484; 85025; 85610; 85730; 86140; 87040; 87077; 87086; 87150; 87181; 87633; 92610; 93005; 94640; 96361; 96365; 96366; 96368; 99285; 99291; A6250; A9270; J1815; J2060; J3370; J3490; J7120; J8499; 81003

== ENCOUNTER 2021-09-03 14:42 | Outpatient (CLI) | payer MEDICARE | END 2021-09-03 14:43 | disposition home or self-care (01) | LOC: EMS 14:42 | PROVIDERS: ATTEND Internal Medicine | DX: A41.9 Sepsis, unspecified organism (principal); N39.0 Urinary tract infection, site not specified; J44.9 Chronic obstructive pulmonary disease, unspecified; M54.9 Dorsalgia, unspecified; E11.9 Type 2 diabetes mellitus without complications; Z74.01 Bed confinement status; Z51.5 Encounter for palliative care | CPT/HCPCS: A0425; A0428 ==

== ENCOUNTER 2021-09-04 15:28 | Outpatient (CLI) | payer MEDICARE | END 2021-09-04 15:29 | disposition E | LOC: EMS 15:28 ==